=== PATIENT | female | born 1945 | race Caucasian/White ===

== ENCOUNTER → 2020-04-17 13:06 | Outpatient (BNVA) | payer MEDICARE, SELFPAY | PROVIDERS: PCP Physician Assistant; Visit Provider Urology | DX: R39.15 Urgency of urination (principal); N32.81 Overactive bladder | CPT/HCPCS: 51798; 99212 ==

== ENCOUNTER → 2020-05-30 15:02 | Outpatient (BNVA) | payer MEDICARE, SELFPAY | PROVIDERS: PCP Family Medicine; Visit Provider Urology | DX: N95.2 Postmenopausal atrophic vaginitis (principal); N30.20 Other chronic cystitis without hematuria; R39.15 Urgency of urination | CPT/HCPCS: 52000; 81002; 99212 ==

== ENCOUNTER 2020-10-09 09:48 | Outpatient (REF) | payer MEDICARE, SELFPAY | END 2020-10-09 09:49 | disposition home or self-care (01) | LOC: HO.LNP 09:48 | PROVIDERS: PCP Family Medicine | DX: N30.21 Other chronic cystitis with hematuria (principal); N32.81 Overactive bladder; Z79.899 Other long term (current) drug therapy; Z87.440 Personal history of urinary (tract) infections | CPT/HCPCS: 87086; 87088; 87186; 99212 ==

== ENCOUNTER 2020-10-29 14:36 | Outpatient (REF) | payer MEDICARE, SELFPAY ==
--- NOTE | ~2020-10-29 | US_ITS ---
EXAMINATION: US RETROPERITONEAL LIMITED (RENAL ONLY) CLINICAL INFORMATION: Hematuria, unspecified. COMPARISON: None TECHNIQUE: Real-time imaging of the kidneys. FINDINGS: RIGHT KIDNEY: 7.9 x 3.4 x 4.1 cm (SAG x AP x TRV). The kidney is small. The kidney is normal in contour, and echogenicity. Renal cortical thickness is normal. There are three echogenic densities with twinkle artifact suggestive of stones in the upper and midpole measuring 4 mm. No focal parenchymal lesions or hydronephrosis. LEFT KIDNEY: 8.5 x 4.0 x 3.3 cm (SAG x AP x TRV). The kidney is small. The kidney is normal in contour, and echogenicity. Renal cortical thickness is normal. No calculi or focal parenchymal lesions. No hydronephrosis. US/US renal BI IMPRESSION: Small kidneys. Small right renal stones.
== END 2020-10-29 14:37 | disposition home or self-care (01) ==
LOC: HO.US 14:36
PROVIDERS: PCP Family Medicine
DX: R31.9 Hematuria, unspecified (principal)
CPT/HCPCS: 76775

== ENCOUNTER → 2020-11-01 09:47 | Outpatient (BNVA) | payer MEDICARE, SELFPAY | PROVIDERS: PCP Family Medicine | DX: R39.15 Urgency of urination (principal) | CPT/HCPCS: 99212 ==

== ENCOUNTER → 2020-12-31 11:38 | Outpatient (BNVA) | payer MEDICARE, SELFPAY | PROVIDERS: PCP Family Medicine | DX: N30.20 Other chronic cystitis without hematuria (principal) | CPT/HCPCS: 99212 ==

== ENCOUNTER → 2021-04-03 13:48 | Outpatient (BNVA) | payer MEDICARE, SELFPAY | PROVIDERS: PCP Family Medicine | DX: N30.20 Other chronic cystitis without hematuria (principal); N32.81 Overactive bladder; R39.15 Urgency of urination | CPT/HCPCS: 99212 ==

== ENCOUNTER → 2021-06-03 14:09 | Outpatient (BNVA) | payer MEDICARE, SELFPAY | PROVIDERS: PCP Family Medicine | DX: N30.20 Other chronic cystitis without hematuria (principal); N32.81 Overactive bladder; Z79.899 Other long term (current) drug therapy | CPT/HCPCS: 51798; 99212 ==

== ENCOUNTER 2021-08-08 12:28 | Outpatient (REF) | payer MEDICARE, SELFPAY ==
[2021-08-08 13:17] LABS: Appearance Urine HAZY; Color Urine YELLOW; Glucose Urine UA 500 MG/DL (NEG); Leukocyte Esterase Urine 1+ (NEG); Nitrite Urine NEG (NEG); PH 6.5 (5.0-8.0); Urine Blood 1+ (NEG); Urine Ketones NEG (NEG); Urine Protein NEG (NEG-TRACE)
[2021-08-08 13:24] LABS: WBC Clumps Urine NOTED; WBC Urine 50-75 /HPF (0-4)
[2021-08-08 13:25] LABS: Bacteria Urine 1+ /LPF; RBC Urine 0-2 /HPF (0)
[2021-08-08 13:26] LABS: Renal Epithelial Cells Urine TRACE /LPF; Squamous Epithelial Cell Urine TRACE /LPF
== END 2021-08-08 12:29 | disposition home or self-care (01) ==
LOC: HO.LAB 12:28
PROVIDERS: PCP Family Medicine; Visit Provider Urology
DX: R39.15 Urgency of urination (principal)
CPT/HCPCS: 81001; 87086; 87088; 87186

== ENCOUNTER 2021-10-22 15:14 | Outpatient (REF) | payer MEDICARE, SELFPAY ==
--- NOTE | ~2021-10-22 | US_ITS ---
EXAMINATION: US RETROPERITONEAL LIMITED (RENAL ONLY) CLINICAL INFORMATION: Calculus of kidney. COMPARISON: US retroperitoneal limited (renal only) 10/29/2020. TECHNIQUE: Real-time imaging of the kidneys. FINDINGS: RIGHT KIDNEY: 7.8 x 3.4 x 3.7 cm (SAG x AP x TRV). The kidney is normal in size, contour, and echogenicity. Renal cortical thickness is normal. No focal parenchymal lesions or hydronephrosis. There is a midpole twinkle shadow suggestive of calcification or tiny calculi. No caliectasis seen. LEFT KIDNEY: 8.2 x 3.9 x 5.0 cm (SAG x AP x TRV). The kidney is normal in size, contour, and echogenicity. Renal cortical thickness is normal. No calculi or focal parenchymal lesions. No hydronephrosis. There are linear echogenic foci, question vascular calcifications. US/US renal BI IMPRESSION: Midpole twinkle echo right kidney likely small calcification or tiny stone.
== END 2021-10-22 15:15 | disposition home or self-care (01) ==
LOC: HO.US 15:14
DX: N20.0 Calculus of kidney (principal)
CPT/HCPCS: 76775

== ENCOUNTER → 2021-12-10 10:09 | Outpatient (BNVA) | payer MEDICARE, SELFPAY | PROVIDERS: PCP Family Medicine; Visit Provider Urology | DX: N30.20 Other chronic cystitis without hematuria (principal); N32.81 Overactive bladder; R39.15 Urgency of urination | CPT/HCPCS: 51798; 99212 ==

== ENCOUNTER 2022-04-23 13:11 | Inpatient (IN) | payer MEDICARE, SELFPAY ==
--- NOTE | ~2022-04-23 | CT_ITS ---
EXAMINATION: CT ABDOMEN AND PELVIS WITHOUT CONTRAST CLINICAL INFORMATION: Right flank pain. Rule out stone or pyelonephritis. COMPARISON: None TECHNIQUE: Multidetector volumetric imaging was performed from the superior aspect of the liver through the pubic symphysis. Sagittal and coronal reformatted images were obtained on the technologist's workstation. This CT examination was performed using dose optimization techniques as appropriate, variously including the following: *Automated exposure control *Adjustment of mA and/or kV according to patient size (this includes techniques or standardized protocols for targeted exams where dose is matched to indication/reason for exam; i.e. extremities or head) *Use of iterative reconstruction technique DLP: 519 mGy-cm FINDINGS: LUNG BASES: Mild subpleural reticulation the lung bases consistent with some combination of mild interstitial fibrosis and/or atelectasis. Sub-4 mm left basilar calcified granuloma noted. LIVER, GALLBLADDER, AND BILIARY TREE: Normal hepatic attenuation in size. No liver lesion. Status post cholecystectomy. Common hepatic duct measures up to 1 cm in diameter, at the upper limits of normal in size. Slight prominence of central intrahepatic bile ducts. Findings are likely normal for this patient. Correlate with LFTs for clinical significance. PANCREAS: Unremarkable. SPLEEN: Unremarkable. ADRENAL GLANDS: Unremarkable. KIDNEYS AND URETERS: The kidneys are normal in size, shape, and attenuation. No hydronephrosis, hydroureter, or calculi seen. No perinephric stranding. BLADDER: Unremarkable. GASTROINTESTINAL TRACT: Probable small hiatal hernia. No dilated bowel loops. No bowel wall thickening. Moderate volume formed stool within the colon. Appendix is not visualized. No inflammatory change the base of the cecum. No free air or ascites. ABDOMINAL WALL: Surgical closure clips in the ventral abdominal wall. No significant hernia. LYMPH NODES: No lymphadenopathy. VASCULAR: Mildly tortuous normal caliber abdominal aorta. Moderate vascular calcifications. PELVIC VISCERA: Status post hysterectomy. OSSEOUS STRUCTURES: Generalized osteopenia. No acute fracture or suspicious osseous lesion. Status post L3-S1 posterior spinal fusion with intact posterior mohan and pedicle screws at L3-L5 and intervertebral spacers in place at L2-L3 and L4-L5. Spinal stimulator ascends into the spinal canal of the visualized thoracic spine. Retrolisthesis at L2-L3. Multilevel degenerative disc disease most advanced at L2-L3. Bilateral hip joint osteoarthritis. CT/CT abdomen pelvis wo IV con IMPRESSION: 1. No renal calculi or hydronephrosis. 2. No perinephric inflammatory stranding. Cannot exclude the possibility of pyelonephritis on CT without intravenous contrast. Correlate with urinalysis. 3. Status post cholecystectomy. Mild prominence of the common hepatic duct and central intrahepatic bile ducts, likely normal for this patient. Correlate with LFTs for clinical significance. 4. Additional chronic findings, as described.
[2022-04-23 13:38] VITALS: BP 133/74; PULSE 72; RESP 18; TEMP 36.8; O2SAT 98; BMI 26.6
--- NOTE | 2022-04-23 13:38 | ED_ITS ---
HPI - Female Genitourinary General Chief complaint: Urogenital-Female <Carolina Mesa CNP - Last Filed: 04/23/22 20:47> Stated complaint: quest uti <Carolina Mesa CNP - Last Filed: 04/23/22 20:47> Time Seen by Provider: 04/23/22 22:46 <Carolina Mesa CNP - Last Filed: 04/23/22 20:47> Source: patient <Peter Grijalva MD - Last Filed: 04/24/22 00:50> Mode of arrival: ambulatory <Peter Grijalva MD - Last Filed: 04/24/22 00:50> Limitations: no limitations <Peter Grijalva MD - Last Filed: 04/24/22 00:50> History of Present Illness HPI Narrative: 76-year-old female who presents emergency department for evaluation of possible urinary tract infection. The patient states that at 1 week prior she had symptoms of urinary tract infection which included frequency, urgency, dysuria and cramping in her lower abdomen. She states that her urologist prescribed Macrobid and she took this for 1 week. She states she finished this dose on Wednesday ( 4 days prior to evaluation). She states that over the past 2-3 days however her symptoms have gotten worse. She continues to have dysuria and frequency. She states she also developed shaking chills today. She had nausea with no vomiting. She states she has also had loose stools over the last 3 days. Patient states that while she was waiting here in the emergency departm ent she developed pain in her right lower quadrant that radiates to her right flank. She states this pain is a constant, sharp pain which is greater than 10/10. <Peter Grijalva MD - Last Filed: 04/24/22 00:50> Related Data Home medications: Home Medications Medication Instructions Recorded Confirmed atorvastatin 80 mg tablet 80 mg PO DAILY 04/17/20 12/10/21 dicyclomine 10 mg capsule 10 mg PO TID 04/17/20 12/10/21 fluoxetine 40 mg capsule 40 mg PO DAILY 04/17/20 12/10/21 insulin glargine 100 unit/mL (3 unit subcut 04/17/20 12/10/21 mL) subcutaneous pen levothyroxine 100 mcg tablet 0 mcg PO 04/17/20 12/10/21 lisinopril 2.5 mg tablet 2.5 mg PO DAILY 04/17/20 12/10/21 metoprolol succinate 25 mg 25 mg PO DAILY 04/17/20 12/10/21 tablet,extended release 24 hr pantoprazole 40 mg tablet,delayed 40 mg PO DAILY 05/30/20 12/10/21 release pen needle, diabetic 31 gauge x #1,200 ea 04/03/21 12/10/21 5/16 (BD Ultra-Fine Short Pen Needle) Previous Rx's Medication Instructions Recorded estradiol 0.01% (0.1 mg/gram) See Rx Instructions .Route 3XW 30 05/30/20 vaginal cream days #42.5 grams ascorbic acid (vitamin C) 1,000 mg 1 g PO DAILY 90 days #90 tabs 04/03/21 tablet mirabegron 25 mg tablet,extended 50 mg PO DAILY 90 days #180 tabs 12/10/21 release 24 hr (Myrbetriq) nitrofurantoin 100 mg PO BID UTI 7 days #14 caps 04/13/22 monohydrate/macrocrystals 100 mg capsule (Macrobid) <Carolina Mesa, [employer] - Last Filed: 04/23/22 20:47> Allergies/Adverse reactions: Allergies Allergy/AdvReac Type Severity Reaction Status Date / Time droperidol [From INAPSINE] Allergy Severe HYPERACTIVE Verified 12/10/21 08:49 Cephalosporins Allergy Intermediate RASH,GI Verified 12/10/21 08:49 [CEPHALOSPORINS] UPSET doxycycline [DOXYCYCLINE] Allergy Intermediate N/V/DIARRHE Verified 12/10/21 08:49 A latex [LATEX] Allergy Intermediate RASH Verified 12/10/21 08:49 amlodipine Allergy Unknown Unknown Verified 12/10/21 08:49 cephalexin [Keflex] Allergy Unknown Unknown Verified 12/10/21 08:49 ciprofloxacin [Cipro] Allergy Unknown Unknown Verified 12/10/21 08:49 levofloxacin [Levaquin] Allergy Unknown Unknown Verified 12/10/21 08:49 Sulfa (Sulfonamide Allergy Unknown Unknown Verified 12/10/21 08:49 Antibiotics) sulfamethoxazole AdvReac Mild GI UPSET Verified 12/10/21 08:49 [From BACTRIM] trimethoprim [From BACTRIM] AdvReac Mild GI UPSET Verified 12/10/21 08:49 From KEFLEX Allergy Intermediate LEG RASH Uncoded 06/03/21 14:19 hipacleanse Allergy Unknown Unknown Uncoded 06/03/21 14:19 Latex Exam Gloves Allergy Unknown Unknown Uncoded 06/03/21 14:19 <Carolina Mesa CNP - Last Filed: 04/23/22 20:47> Review of Systems Review of Systems: Yes all other systems are reviewed and are negative <Peter Grijalva MD - Last Filed: 04/24/22 00:50> FORMERLY [facility], [facility] Past Medical History FOR[facility]LY [facility], [facility] Narrative: Past medical history: Reviewed below. Diabetes mellitus, hypertension, hyperlipidemia, frequent urinary tract infections, C diff, COVID-16 February 2022. Past surgical history: Hysterectomy with oophorectomy, appendectomy, cholecystectomy, ERCP for retained biliary stone. Social history: She denies tobacco use. She occasionally drinks alcohol. She denies drug <Peter Grijalva MD - Last Filed: 04/24/22 00:50> Medical History: Medical History Chronic kidney disease Hematuria Hx: UTI (urinary tract infection) Incomplete emptying of bladder Pyuria Urethral caruncle <Carolina Mesa CNP - Last Filed: 04/23/22 20:47> Surgical History: Surgical History History of total hysterectomy <Carolina Mesa CNP - Last Filed: 04/23/22 20:47> Social History Social History: Social History Advance Directives: No Advance Directives Information Provided: Yes Current occupational status: disabled <Carolina Mesa CNP - Last Filed: 04/23/22 20:47> Physical Exam Vital Signs: Vital Signs: Last Vital Signs Temp 98.1 F 04/23/22 23:51 Pulse 59 04/23/22 23:51 Resp 16 04/23/22 23:51 BP 147/75 H 04/23/22 23:51 Pulse Ox 98 04/23/22 23:51 O2 Del Method 04/23/22 23:51 BMI result Body Mass Index 26.6 <Carolina Mesa CNP - Last Filed: 04/23/22 20:47> Vital Signs: Last Vital Signs Temp 98.1 F 04/23/22 23:51 Pulse 59 04/23/22 23:51 Resp 16 04/23/22 23:51 BP 147/75 H 04/23/22 23:51 Pulse Ox 98 04/23/22 23:51 O2 Del Method 04/23/22 23:51 BMI result Body Mass Index 26.6 <Peter Grijalva MD - Last Filed: 04/24/22 00:50> Const: General: cooperative and no acute distress <Peter Grijalva MD - Last Filed: 04/24/22 00:50> Orientation/consciousness: oriented to person and oriented to place <Peter Grijalva MD - Last Filed: 04/24/22 00:50> Limitations: no limitations <Peter Grijalva MD - Last Filed: 04/24/22 00:50> HEENT: Head: Yes normal to inspection, Yes normocephalic and Yes atraumatic <Peter Grijalva MD - Last Filed: 04/24/22 00:50> Ears: external ears normal <Peter Grijalva MD - Last Filed: 04/24/22 00:50> General nose exam: Normal external nose present <Peter Grijalva MD - Last Filed: 04/24/22 00:50> Face and sinus: Yes normal facial exam <Peter Grijalva MD - Last Filed: 04/24/22 00:50> Mouth: Normal oral and palatal mucosa present <Peter Grijalva MD - Last Filed: 04/24/22 00:50> Throat: Yes posterior oropharynx normal <Peter Grijalva MD - Last Filed: 04/24/22 00:50> Eyes: General: appearance normal, both eyes and all related structures <Peter Grijalva MD - Last Filed: 04/24/22 00:50> Pupils: Equal, round and reactive pupils present <MD Merlyn Davalos Last Filed: 04/24/22 00:50> Neck: Neck: Yes normal visual inspection, Yes no lymphadenopathy, Yes trachea midline and Yes supple <MD Merlyn Davalos Last Filed: 04/24/22 00:50> Chest: Chest palpation & inspection: normal inspection of the chest and normal palpation of entire chest wall <MD Merlyn Davalos Last Filed: 04/24/22 00:50> Resp: Effort & Inspection: normal respiratory effort and able to speak in complete sentences <MD Merlyn Davalos Last Filed: 04/24/22 00:50> Auscultation: clear to auscultation bilaterally <MD Merlyn Davalos Last Filed: 04/24/22 00:50> Cardio: Rate: regular rate <MD Merlyn Davalos Last Filed: 04/24/22 00:50> Rhythm: regular rhythm <MD Merlyn Davalos Last Filed: 04/24/22 00:50> Heart sounds: S1 normal heart sound present, S2 normal heart sound present and no murmurs <MD Merlyn Davalos Last Filed: 04/24/22 00:50> GI: Inspection: Yes normal to inspection <MD Merlyn Davalos Last Filed: 04/24/22 00:50> Palpation (GI): Soft to palpation, Tenderness to palpation present (GI) in the RLQ ( Moderate) and suprapubicly ( moderate) and no guarding <Peter boone MD - Last Filed: 04/24/22 00:50> Auscultation: normal bowel sounds <MD Merlyn Davalos Last Filed: 04/24/22 00:50> : General: Yes CVA tenderness on the right <MD Merlyn Davalos Last Filed: 04/24/22 00:50> Back/Spine/Pelvis: Back: CVA tenderness <MD Merlyn Davalos Last Filed: 04/24/22 00:50> Skin: General skin exam: no rashes or lesions noted <Peter Grijalva MD - Last Filed: 04/24/22 00:50> Neuro: General: oriented to person and oriented to place <Peter Grijalva MD - Last Filed: 04/24/22 00:50> Cranial nerves: Yes CN's II-XII intact bilaterally and Yes Equal, round and reactive pupils present <Peter Grijalva MD - Last Filed: 04/24/22 00:50> Cognition (Neuro): normal cognition <Peter Grijalva MD - Last Filed: 04/24/22 00:50> Motor exam (neuro): 5/5 motor strength present throughout <Peter Grijalva MD - Last Filed: 04/24/22 00:50> Extrem: General: Yes normal to inspection <Peter Grijalva MD - Last Filed: 04/24/22 00:50> Psych: Appearance: grossly normal <Peter Grijalva MD - Last Filed: 04/24/22 00:50> Speech and movement: Normal speech and movement present <Peter Grijalva MD - Last Filed: 04/24/22 00:50> Affect: normal affect <Peter Grijalva MD - Last Filed: 04/24/22 00:50> Attitude: cooperative <Peter Grijalva MD - Last Filed: 04/24/22 00:50> Thought process: Normal thought process present <Peter Grijalva MD - Last Filed: 04/24/22 00:50> Thought content: Normal thought content present <Peter Grijalva MD - Last Filed: 04/24/22 00:50> Course Course Course Narrative: This is an RME: Additional HPI, ROS, PE not included below will be deferred to primary provider. Patient is a 76-year-old female with chronic cystitis who presents to emergency department complaining of dysuria, urinary frequency, suprapubic cramping. Onset of symptoms was a few days ago. Today symptoms were worsening. She contacted her urologist, while in the waiting room she received an appointment to be evaluated tomorrow. Reports over weekend she completed a 1 week regimen of Macrobid. Prior urine cultures have grown E coli, and most recently July 2021 Citrobacter freundii Plan: labs, urinalysis 18:40 - Patient remains in [facility], Urinalysis consistent with urinary tract infection, no leukocytosis. I have reached out to Urology on-call, Dr. Thad Blevins, who is patient's urologist to establish plan of care for treatment. Awaiting response at this time 20:45 - Received call back from Dr. Kathleen, patient has an outpatient appointment scheduled for tomorrow morning. She recommended that patient can receive treatment with IV antibiotic while in the emergency department, and suggested either renal ultrasound or CT of the abdomen and pelvis for further evaluation. <Carolina Mesa, BENOIT - Last Filed: 04/23/22 20:47> Medications Administered Generic Name Dose Route Start Last Admin Trade Name Freq PRN Reason Stop Dose Admin Lactated Ringer's 1,000 mls @ 150 mls/hr 04/23/22 23:15 04/24/22 00:29 Lr IVCONT 150 mls/hr .Q6H40M ZARA Administration Discontinued Medications Generic Name Dose Route Start Last Admin Trade Name Freq PRN Reason Stop Dose Admin Hydromorphone HCl 1 mg 04/23/22 23:12 04/24/22 00:29 Hydromorphone Hcl 1 Mg/Ml Syringe IVPUSH 04/23/22 23:13 1 mg ONCE STA Administration Protocol Ceftriaxone Sodium 1 gm/ 50 mls @ 100 mls/hr 04/23/22 23:12 04/24/22 00:26 Sodium Chloride IV 04/23/22 23:41 100 mls/hr ONCE ONE Administration Ketorolac Tromethamine 30 mg 04/23/22 21:49 04/23/22 21:54 Ketorolac Tromethamine 30 Mg/Ml Vial IVPUSH 04/23/22 21:50 30 mg ONCE ONE Administration Morphine Sulfate 4 mg 04/23/22 20:25 04/23/22 21:08 Morphine Sulfate 4 Mg/Ml Cartridge IVPUSH 04/23/22 20:26 4 mg ONCE ONE Administration Protocol Ondansetron HCl 4 mg 04/23/22 21:10 04/23/22 21:13 Ondansetron Odt 4 Mg Tab.Rapdis TRANSLINGU 04/23/22 21:11 4 mg ONCE ONE Administration <Carolina Mesa CNP - Last Filed: 04/23/22 20:47> Medications Administered Generic Name Dose Route Start Last Admin Trade Name August PRN Reason Stop Dose Admin Lactated Ringer's 1,000 mls @ 150 mls/hr 04/23/22 23:15 04/24/22 00:29 Lr IVCONT 150 mls/hr .Q6H40M ZARA Administration Discontinued Medications Generic Name Dose Route Start Last Admin Trade Name Frejohnny PRN Reason Stop Dose Admin Hydromorphone HCl 1 mg 04/23/22 23:12 04/24/22 00:29 Hydromorphone Hcl 1 Mg/Ml Syringe IVPUSH 04/23/22 23:13 1 mg ONCE STA Administration Protocol Ceftriaxone Sodium 1 gm/ 50 mls @ 100 mls/hr 04/23/22 23:12 04/24/22 00:26 Sodium Chloride IV 04/23/22 23:41 100 mls/hr ONCE ONE Administration Ketorolac Tromethamine 30 mg 04/23/22 21:49 04/23/22 21:54 Ketorolac Tromethamine 30 Mg/Ml Vial IVPUSH 04/23/22 21:50 30 mg ONCE ONE Administration Morphine Sulfate 4 mg 04/23/22 20:25 04/23/22 21:08 Morphine Sulfate 4 Mg/Ml Cartridge IVPUSH 04/23/22 20:26 4 mg ONCE ONE Administration Protocol Ondansetron HCl 4 mg 04/23/22 21:10 04/23/22 21:13 Ondansetron Odt 4 Mg Tab.Rapdis TRANSLINGU 04/23/22 21:11 4 mg ONCE ONE Administration <Peter Grijalva MD - Last Filed: 04/24/22 00:50> Medical Decision Making Medical Decision Making MDM Narrative: 76-year-old female with a history of frequent urinary tract infections who was treated approximately 1 week prior pre urine tract infection with Macrobid, she finished her course 3 days prior and now had recurrence of her symptoms which include chills, dysuria, frequency, urgency, right lower quadrant pain and right flank pain. Patient is still examination did reveal right lower quadrant tenderness as well suprapubic tenderness. The patient also has right CVA tenderness. Patient had a laboratory evaluation that included CBC, CMP, urinalysis, lactic acid lactic acid. CT scan of the abdomen pelvis without IV contrast was also ordered to evaluate the patient for possible right-sided kid jignesh stones versus pyelonephritis. 2323 : My independent interpretation patient's laboratory evaluation as follows: CBC was normal. bicarb low 20. BUN and creatinine normal 190.9. Alk-phos elevated 119. urinalysis revealed positive protein, positive glucose, 2+ blood, positive nitrates, moderate leukocyte esterase. Urinalysis revealed greater than 20 RBCs, greater than 50 WBCs, 0-2 squamous cells and 4+ bacteria. The patient's laboratory evaluation is consistent with a urinary tract infection, given her suprapubic tenderness, right lower quadrant tenderness and flank tenderness and concerned that she may have pyelonephritis. CT scan of the abdomen pelvis with IV contrast is pending. Patient has multiple drug allergies, she states that she cannot take cephalexin however she has tolerated the 3rd generation cefpodoxime therefore I did order ceftriaxone 1 g IV. patient did receive Toradol and morphine with no relief for pain therefore she was given Dilaudid 1 mg IV. 0047: CT scan of the abdomen pelvis without IV contrast did not reveal kidney stones or any significant acute findings. At this time, I suspect the patient has acute pyelonephritis and has failed outpatient therapy. I did discuss admission with the covering hospitalist, Dr. Lopez and patient will be admitted for further management. <Peter Grijalva MD - Last Filed: 04/24/22 00:50> Differential Diagnosis Differential diagnosis includes but is not limited to pyelonephritis, cystitis, kidney stones <Peter Grijalva MD - Last Filed: 04/24/22 00:50> Consult Healthcare Provider Management of the patient was discussed with: Hospitalist (Dr. Lopez) <Pteer Grijalva MD - Last Filed: 04/24/22 00:50> Lab Data [facility] Lab Attestation statement: I reviewed the patient's lab results. <Peter Grijalva MD - Last Filed: 04/24/22 00:50> please see [facility] for my discussion of the labs <Peter Grijalva MD - Last Filed: 04/24/22 00:50> Result Diagrams: 04/23/22 14:15 02/23/23 14:15 <Carolina Mesa, [employer] - Last Filed: 04/23/22 20:47> Labs: Lab Results 04/23/22 04/23/22 04/23/22 Range/Units 14:00 14:15 14:15 WBC 10.7 (4.8-10.8) X10*3/uL RBC 4.80 (4.20-5.50) X10*6/uL Hgb 12.1 (12.0-16.0) g/dl Hct 37.7 (37.0-47.0) % MCV 78.5 L (80.0-98.0) fL MCH 25.2 L (27.0-33.0) pg MCHC 32.1 (31.0-35.0) g/dl RDW 16.9 H (11.0-16.0) % Plt Count 228 (160-400) X10*3/uL MPV 9.3 L (9.4-12.3) fL Immature Gran % (Auto) 0.4 (0.0-0.4) % Neut % (Auto) 67.4 (45-73) % Lymph % (Auto) 25.5 (20-40) % [place] % (Auto) 4.6 (2-11) % Eos % (Auto) 1.4 (0-4) % Baso % (Auto) 0.7 (0-2) % Lymph # (Auto) 2.7 (1.2-4.9) X10*3/uL [place] # (Auto) 0.5 (0.1-1.2) X10*3/uL Eos # (Auto) 0.2 (0.0-0.4) X10*3/uL Baso # (Auto) 0.1 (0.0-0.2) X10*3/uL Abs Immat Gran (auto) 0.04 H (0.00-0.03) X10*3/uL Absolute Neuts (auto) 7.2 (2.0-8.3) x10*3/uL Absolute Nucleated RBC 0.000 (0.0-0.012) X10*3/uL Nucleated RBC % (auto) 0.0 (0.0-0.2) /100WBC Sodium 139 (135-145) mmol/L Potassium 4.9 (3.3-5.1) mmol/L Chloride 110 H (96-108) mmol/L Carbon Dioxide 20 L (22-29) mmol/L Anion Gap 14 (12-20) BUN 19 H (9-16) mg/dL Creatinine 0.96 (0.5-1.4) mg/dL Estim Creat Clear Calc 50.5 Estimated GFR 57 Random Glucose 77 (60-115) mg/dL Calcium 8.2 L (8.4-10.2) mg/dL Total Bilirubin 0.2 (0.0-1.0) mg/dL AST 23 (5-31) U/L ALT 10 (0-31) U/L Alkaline Phosphatase 119 H (39-117) U/L Total Protein 6.6 (6.5-8.0) g/dL Albumin 3.8 (3.5-5.0) g/dL Urine Color Yellow Urine Appearance Turbid Urine pH 5.5 (5.0-9.0) Ur Specific [place] >= 1.030 H (1.005-1.025) Urine Protein 100 (2+) H (Neg-Trace) mg/dL Urine Glucose (UA) 500 H (Negative) mg/dL Urine Ketones Trace (Negative) mg/dL Urine Blood Moderate (2+) H (Negative) Urine Nitrite Positive H (Negative) Ur Leukocyte Esterase Moderate (2+) H (Negative) Urine RBC >20 H (0-2) /HPF Urine WBC >50 H (0-5) /HPF Ur Squamous Epith Cells 0-2 (0-2) /HPF Urine Bacteria 4+ (None Seen) Hyaline Casts 0-2 (0-2) /LPF <Carolina Mesa, [employer] - Last Filed: 04/23/22 20:47> Lab Results 04/23/22 04/23/22 04/23/22 Range/Units 14:00 14:15 14:15 WBC 10.7 (4.8-10.8) X10*3/uL RBC 4.80 (4.20-5.50) X10*6/uL Hgb 12.1 (12.0-16.0) g/dl Hct 37.7 (37.0-47.0) % MCV 78.5 L (80.0-98.0) fL MCH 25.2 L (27.0-33.0) pg MCHC 32.1 (31.0-35.0) g/dl RDW 16.9 H (11.0-16.0) % Plt Count 228 (160-400) X10*3/uL MPV 9.3 L (9.4-12.3) fL Immature Gran % (Auto) 0.4 (0.0-0.4) % Neut % (Auto) 67.4 (45-73) % Lymph % (Auto) 25.5 (20-40) % [place] % (Auto) 4.6 (2-11) % Eos % (Auto) 1.4 (0-4) % Baso % (Auto) 0.7 (0-2) % Lymph # (Auto) 2.7 (1.2-4.9) X10*3/uL [place] # (Auto) 0.5 (0.1-1.2) X10*3/uL Eos # (Auto) 0.2 (0.0-0.4) X10*3/uL Baso # (Auto) 0.1 (0.0-0.2) X10*3/uL Abs Immat Gran (auto) 0.04 H (0.00-0.03) X10*3/uL Absolute Neuts (auto) 7.2 (2.0-8.3) x10*3/uL Absolute Nucleated RBC 0.000 (0.0-0.012) X10*3/uL Nucleated RBC % (auto) 0.0 (0.0-0.2) /100WBC Sodium 139 (135-145) mmol/L Potassium 4.9 (3.3-5.1) mmol/L Chloride 110 H (96-108) mmol/L Carbon Dioxide 20 L (22-29) mmol/L Anion Gap 14 (12-20) BUN 19 H (9-16) mg/dL Creatinine 0.96 (0.5-1.4) mg/dL Estim Creat Clear Calc 50.5 Estimated GFR 57 Random Glucose 77 (60-115) mg/dL Calcium 8.2 L (8.4-10.2) mg/dL Total Bilirubin 0.2 (0.0-1.0) mg/dL AST 23 (5-31) U/L ALT 10 (0-31) U/L Alkaline Phosphatase 119 H (39-117) U/L Total Protein 6.6 (6.5-8.0) g/dL Albumin 3.8 (3.5-5.0) g/dL Urine Color Yellow Urine Appearance Turbid Urine pH 5.5 (5.0-9.0) Ur Specific [place] >= 1.030 H (1.005-1.025) Urine Protein 100 (2+) H (Neg-Trace) mg/dL Urine Glucose (UA) 500 H (Negative) mg/dL Urine Ketones Trace (Negative) mg/dL Urine Blood Moderate (2+) H (Negative) Urine Nitrite Positive H (Negative) Ur Leukocyte Esterase Moderate (2+) H (Negative) Urine RBC >20 H (0-2) /HPF Urine WBC >50 H (0-5) /HPF Ur Squamous Epith Cells 0-2 (0-2) /HPF Urine Bacteria 4+ (None Seen) Hyaline Casts 0-2 (0-2) /LPF <Peter Grijalva MD - Last Filed: 04/24/22 00:50> Discharge Plan Discharge Prescriptions: No Action nitrofurantoin monohyd/m-cryst [Macrobid] 100 mg capsule 100 mg PO BID 7 Days Qty: 14 0RF Rx Instructions: must administer with a meal/food metoprolol succinate 25 mg tablet extended release 24 hr 25 mg PO DAILY levothyroxine 100 mcg tablet 0 mcg PO dicyclomine 10 mg capsule 10 mg PO TID fluoxetine 40 mg capsule 40 mg PO DAILY Lantus Solostar U-100 Insulin 100 unit/mL (3 mL) insulin pen subcut lisinopril 2.5 mg tablet 2.5 mg PO DAILY atorvastatin 80 mg tablet 80 mg PO DAILY pantoprazole 40 mg tablet,delayed release (DR/EC) 40 mg PO DAILY estradiol 0.01 % (0.1 mg/gram) cream See Rx Instructions .Route 3XW 30 Days Qty: 42.5 2RF Rx Instructions: pea-sized to urethra 3 times a week; (DME) pen needle, diabetic [BD Ultra-Fine Short Pen Needle] 31 gauge x 5/16 needle See Rx Instructions subcut DAILY Qty: 1200 Rx Instructions: As directed ascorbic acid (vitamin C) 1,000 mg tablet 1 g PO DAILY 90 Days Qty: 90 1RF Myrbetriq 25 mg tablet extended release 24 hr 50 mg PO DAILY 90 Days Qty: 180 2RF <Carolina Mesa, BENOIT - Last Filed: 04/23/22 20:47>
[2022-04-23 14:19] LABS: MANUAL DIFF FLAG NO
[2022-04-23 14:22] LABS: Basophils Absolute Auto 0.1 X10*3/uL (0.0-0.2); Basophils Percent Auto 0.7 % (0-2); Eosinophils Absolute Auto 0.2 X10*3/uL (0.0-0.4); Eosinophils Percent Auto 1.4 % (0-4); Hematocrit 37.7 % (37.0-47.0); Hemoglobin 12.1 g/dl (12.0-16.0); Imm Gran Abs Auto 0.04 X10*3/uL (0.00-0.03); Imm Gran Pct Auto 0.4 % (0.0-0.4); Lymphocytes Absolute Auto 2.7 X10*3/uL (1.2-4.9); Lymphocytes Percent Auto 25.5 % (20-40); Mean Corpuscular HGB Conc 32.1 g/dl (31.0-35.0); Mean Corpuscular Hemoglobin 25.2 pg (27.0-33.0); Mean Corpuscular Volume 78.5 fL (80.0-98.0); Mean Platelet Volume 9.3 fL (9.4-12.3); Monocytes Absolute Auto 0.5 X10*3/uL (0.1-1.2); Monocytes Percent Auto 4.6 % (2-11); Neutrophils Absolute Auto 7.2 x10*3/uL (2.0-8.3); Neutrophils Percent Auto 67.4 % (45-73); Platelet Count 228 X10*3/uL (160-400); Red Cell Distribution Width 16.9 % (11.0-16.0); White Blood Count 10.7 X10*3/uL (4.8-10.8)
[2022-04-23 14:25] LABS: Appearance Urine Turbid; Color Urine Yellow; Glucose Urine UA 500 mg/dL (Negative); Leukocyte Esterase Urine Moderate (2+) (Negative); Nitrite Urine Positive (Negative); PH 5.5 (5.0-9.0); Specific Gravity - Urine >= 1.030 (1.005-1.025); UMIC TRIGGER UACC YES; Urine Blood Moderate (2+) (Negative); Urine Ketones Trace mg/dL (Negative); Urine Protein 100 (2+) mg/dL (Neg-Trace)
[2022-04-23 14:30] LABS: Bacteria Urine 4+ (None Seen); Hyaline Casts Urine 0-2 /LPF (0-2); RBC Urine >20 /HPF (0-2); Squamous Epithelial Cell Urine 0-2 /HPF (0-2); UACC Culture Trigger YES; WBC Urine >50 /HPF (0-5)
[2022-04-23 14:56] LABS: Alanine Aminotransferase 10 U/L (0-31); Albumin Level 3.8 g/dL (3.5-5.0); Alkaline Phosphatase 119 U/L (39-117); Anion Gap 14 (12-20); Aspartate Amino Transferase 23 U/L (5-31); Bilirubin Total 0.2 mg/dL (0.0-1.0); Blood Urea Nitrogen 19 mg/dL (9-16); Calcium 8.2 mg/dL (8.4-10.2); Carbon Dioxide 20 mmol/L (22-29); Chloride 110 mmol/L (96-108); Creatinine Clr Calc Pharmacy 50.5; Estimated Glomerular Filt Rate 57; Glucose Random 77 mg/dL (60-115); Potassium 4.9 mmol/L (3.3-5.1); Sodium 139 mmol/L (135-145); Total Protein 6.6 g/dL (6.5-8.0)
[2022-04-23 20:16] VITALS: BP 206/75; PULSE 66; TEMP 36.4; O2SAT 99
[2022-04-23] MEDS: Morphine Sulfate 4 MG/ML CARTRIDGE IVPUSH (21:08)
[2022-04-23] MEDS: Ondansetron ODT 4 MG TAB.RAPDIS TRANSLINGU (21:13)
[2022-04-23] MEDS: Ketorolac Tromethamine 30 MG/ML VIAL IVPUSH (21:54)
[2022-04-23 23:51] VITALS: BP 147/75; PULSE 59; RESP 16; TEMP 36.7; O2SAT 98
--- NOTE | 2022-04-23 23:52 | MHC.EDTECH ---
0000 rounding done ,vitals sign taken .
[2022-04-24] MEDS: cefTRIAXone sodium 1 GM in 0.9 % Sodium Chloride 50 ML IV (00:26)
[2022-04-24] MEDS: HYDROmorphone HCl 1 MG/ML SYRINGE IVPUSH (00:29)
[2022-04-24] MEDS: Lactated Ringers 1,000 ML 150 ML IVCONT ×4 (00:29→19:10)
[2022-04-24 00:54] LABS: Lactic Acid 1.2 mmol/L (0.5-2.0)
--- NOTE | 2022-04-24 01:21 | MHC.EDTECH ---
LO RUSSO IS AWARE THAT PATIENT IS A DIFFICULT DRAW ,PHLEBOTOMY CAME UP AND DRAW PATIENT ,WAS ONLY ABLE TO DRAW FIRST SETS OF CULTURE AND LACTIC ACID ,WAS NOT ABLE TO DRAW 2 ND SET .
[2022-04-24 02:04] LABS: COVID-19 Test Negative (Negative); IDNOW Serial# BCCEAD1C
[2022-04-24 02:08] VITALS: BP 126/51; PULSE 78; RESP 16; TEMP 36.2; O2SAT 98
[2022-04-24] MEDS: oxyCODONE HCl Immed Release 5 MG TABLET PO (02:33)
[2022-04-24] MEDS: Enoxaparin Sodium 40 MG/0.4 ML SYRINGE SUBCUT ×2 (02:34→14:51)
--- NOTE | 2022-04-24 02:47 | PC.NURSE ---
pt medicated per apr. orange juice given
[2022-04-24 03:55] VITALS: BP 137/54; PULSE 60; RESP 16; TEMP 36.1; O2SAT 96
--- NOTE | 2022-04-24 04:31 | PC.NURSE ---
Called dr Lopez regarding increase
[2022-04-24] MEDS: HYDROmorphone HCl 0.5 MG/0.5 ML SYRINGE IM (05:34)
--- NOTE | 2022-04-24 06:52 | P.HPHOSP_ITS ---
History of Present Illness Date of Service: 04/24/22 Chief Complaint: flank pain, urinary symptoms 76-year-old female with recurrent UTI, presents the hospital with complaints of urinary symptoms. Patient reports that her symptoms including dysuria, urgency, frequency started about a week ago, she was started on Bactrim outpatient, with slight improvement in her symptoms, but once she completed antibiotics her symptoms returned. She is also complaining of right flank pain radiating to the groin. She denies any fever, no chills, no chest pain shortness of breath, no abdominal pain nausea or vomiting, no diarrhea constipation, no urinary symptoms and no lower extremity edema. She describes the flank pain is 10/10, constant, nonradiating there is positive for nitrites, WBC, leukocyte Estrace as well as bacteria Abdominal pelvic CT shows no renal calculi or hydronephrosis, no perinephric inflammatory stranding although CT is noncontrast. On arrival to the ED patient hemodynamically stable with no significant abnormal vitals Labs are significant for WBC count 10.7, labs otherwise unremarkable, UA positive as mentioned Review of Systems Review of Systems: Yes all other systems are reviewed and are negative [facility] Medical History (Updated 04/24/22 @ 07:01 by Jordyn Lopez MD) Chronic kidney disease Hematuria Hx: UTI (urinary tract infection) Incomplete emptying of bladder Pyuria Urethral caruncle Surgical History History of total hysterectomy Social History (Updated 04/24/22 @ 07:00 by Jordyn Lopez MD) Alcohol intake: never Patient Tobacco Use Status: Never used Tobacco Use of substances other than those prescribed or required for medical reasons: No Advance Directives: No Advance Directives Information Provided: Yes Current occupational status: disabled Meds Allergies Allergy/AdvReac Type Severity Reaction Status Date / Time droperidol [From INAPSINE] Allergy Severe HYPERACTIVE Verified 12/10/21 08:49 Cephalosporins Allergy Intermediate RASH,GI Verified 12/10/21 08:49 [CEPHALOSPORINS] UPSET doxycycline [DOXYCYCLINE] Allergy Intermediate N/V/DIARRHE Verified 12/10/21 08:49 A latex [LATEX] Allergy Intermediate RASH Verified 12/10/21 08:49 amlodipine Allergy Unknown Unknown Verified 12/10/21 08:49 cephalexin [Keflex] Allergy Unknown Unknown Verified 12/10/21 08:49 ciprofloxacin [Cipro] Allergy Unknown Unknown Verified 12/10/21 08:49 levofloxacin [Levaquin] Allergy Unknown Unknown Verified 12/10/21 08:49 Sulfa (Sulfonamide Allergy Unknown Unknown Verified 12/10/21 08:49 Antibiotics) sulfamethoxazole AdvReac Mild GI UPSET Verified 12/10/21 08:49 [From BACTRIM] trimethoprim [From BACTRIM] AdvReac Mild GI UPSET Verified 12/10/21 08:49 From KEFLEX Allergy Intermediate LEG RASH Uncoded 06/03/21 14:19 hipacleanse Allergy Unknown Unknown Uncoded 06/03/21 14:19 Latex Exam Gloves Allergy Unknown Unknown Uncoded 06/03/21 14:19 Active Medications: Current Medications Acetaminophen (Acetaminophen 325 Mg Tablet) 650 mg PO Q6H PRN PRN Reason: Pain, Mild (Pain Scale 1-3) Dextrose (Dextrose 50 % 25 Gm/50 Ml Syringe) 25 gm IVPUSH Q15M PRN; Protocol PRN Reason: per Hypoglycemia Standing Ord. Diphenhydramine HCl (Diphenhydramine Hcl 25 Mg Capsule) 25 mg PO Q4H PRN PRN Reason: Itching Docusate Sodium (Docusate Sodium 100 Mg Capsule) 100 mg PO DAILY PRN PRN Reason: Constipation Enoxaparin Sodium (Enoxaparin Sodium 40 Mg/0.4 Ml Syringe) 40 mg SUBCUT Q12H [facility] Last Admin: 04/24/22 02:34 Dose: 40 mg Glucose (Glucose Gel 15 Gm Gel..Gram.) 15 gm PO Q15M PRN; Protocol PRN Reason: per Hypoglycemia Standing Ord. Lactated Ringer's (Lr) 1,000 mls @ 150 mls/hr IVCONT .Q6H40M [facility] Last Admin: 04/24/22 05:35 Dose: 150 mls/hr Insulin Human Lispro (Insulin Lispro 100 Unit/Ml 3 Ml Vial) 0 unit SUBCUT QIDACHS [facility]; Protocol Ondansetron HCl (Ondansetron Hcl 4 Mg/2 Ml Vial) 4 mg IVPUSH Q8H PRN PRN Reason: Nausea and Vomiting Oxycodone HCl (Oxycodone Hcl Immed Release 5 Mg Tablet) 5 mg PO Q4H PRN PRN Reason: Pain, Severe (Pain Scale 7-10) Last Admin: 04/24/22 02:33 Dose: 5 mg Sodium Chloride (0.9 % Sodium Chloride Flush 3 Ml Syringe) 3 ml IVFLUSH [facility] Home Medications Medication Instructions Recorded Confirmed Last Taken Type atorvastatin 80 mg tablet 80 mg PO DAILY 04/17/20 12/10/21 Unknown History dicyclomine 10 mg capsule 10 mg PO TID 04/17/20 12/10/21 Unknown History fluoxetine 40 mg capsule 40 mg PO DAILY 04/17/20 12/10/21 Unknown History insulin glargine 100 unit/mL (3 unit subcut 04/17/20 12/10/21 Unknown History mL) subcutaneous pen levothyroxine 100 mcg tablet 0 mcg PO 04/17/20 12/10/21 Unknown History lisinopril 2.5 mg tablet 2.5 mg PO DAILY 04/17/20 12/10/21 Unknown History metoprolol succinate 25 mg 25 mg PO DAILY 04/17/20 12/10/21 Unknown History tablet,extended release 24 hr pantoprazole 40 mg tablet,delayed 40 mg PO DAILY 05/30/20 12/10/21 Unknown History release pen needle, diabetic 31 gauge x #1,200 ea 04/03/21 12/10/21 Unknown History 07/14 (BD Ultra-Fine Short Pen Needle) Physical Exam Vital Signs and Narrative: Vital Signs: Last Vital Signs Temp 97.0 F 04/24/22 03:55 Pulse 60 04/24/22 03:55 Resp 16 04/24/22 03:55 BP 137/54 L 04/24/22 03:55 Pulse Ox 96 04/24/22 03:55 O2 Del Method 04/24/22 03:55 BMI result Body Mass Index 26.6 Const: General: cooperative and no acute distress Orientation/consciousness: patient oriented x3 Eyes: General: appearance normal, both eyes and all related structures Resp: Effort & Inspection: normal respiratory effort Auscultation: clear to auscultation bilaterally Cardio: Rate: regular rate Rhythm: regular rhythm GI: Other: suprapubic tenderness, no rebound or guarding Palpation (GI): Soft to palpat ion Auscultation: normal bowel sounds : Other: rate CVA tenderness Skin: General skin exam: no rashes or lesions noted Neuro: General: patient oriented x3 Cognition (Neuro): normal cognition Extrem: General: Yes normal to inspection and Yes no pedal edema Results Labs 04/23/22 14:15 04/23/22 14:15 Labs: Laboratory Results - last 24 hr 04/23/22 04/23/22 04/23/22 14:00 14:15 14:15 MCV 78.5 L MCH 25.2 L MCHC 32.1 RDW 16.9 H Plt Count 228 MPV 9.3 L Immature Gran % (Auto) 0.4 Neut % (Auto) 67.4 Lymph % (Auto) 25.5 [place] % (Auto) 4.6 Eos % (Auto) 1.4 Baso % (Auto) 0.7 Lymph # (Auto) 2.7 [place] # (Auto) 0.5 Eos # (Auto) 0.2 Baso # (Auto) 0.1 Abs Immat Gran (auto) 0.04 H Absolute Neuts (auto) 7.2 Absolute Nucleated RBC 0.000 Nucleated RBC % (auto) 0.0 Anion Gap 14 Estim Creat Clear Calc 50.5 Estimated GFR 57 Random Glucose 77 Lactic Acid Calcium 8.2 L Total Bilirubin 0.2 AST 23 ALT 10 Alkaline Phosphatase 119 H Total Protein 6.6 Albumin 3.8 Urine Color Yellow Urine Appearance Turbid Urine pH 5.5 Ur Specific [place] >= 1.030 H Urine Protein 100 (2+) H Urine Glucose (UA) 500 H Urine Ketones Trace Urine Blood Moderate (2+) H Urine Nitrite Positive H Ur Leukocyte Esterase Moderate (2+) H Urine RBC >20 H Urine WBC >50 H Ur Squamous Epith Cells 0-2 Urine Bacteria 4+ Hyaline Casts 0-2 COVID-19 (SALLY) COVID-19 Clin Com 04/24/22 04/24/22 00:26 01:36 MCV MCH MCHC RDW Plt Count MPV Immature Gran % (Auto) Neut % (Auto) Lymph % (Auto) [place] % (Auto) Eos % (Auto) Baso % (Auto) Lymph # (Auto) [place] # (Auto) Eos # (Auto) Baso # (Auto) Abs Immat Gran (auto) Absolute Neuts (auto) Absolute Nucleated RBC Nucleated RBC % (auto) Anion Gap Estim Creat Clear Calc Estimated GFR Random Glucose Lactic Acid 1.2 Calcium Total Bilirubin AST ALT Alkaline Phosphatase Total Protein Albumin Urine Color Urine Appearance Urine pH Ur Specific [place] Urine Protein Urine Glucose (UA) Urine Ketones Urine Blood Urine Nitrite Ur Leukocyte Esterase Urine RBC Urine WBC Ur Squamous Epith Cells Urine Bacteria Hyaline Casts COVID-19 (SALLY) Negative COVID-19 Clin Com See Note Imaging Radiologist's Impressions: Impressions Abdomen/Pelvis CT 04/23/22 23:31 IMPRESSION: 1. No renal calculi or hydronephrosis. 2. No perinephric inflammatory stranding. Cannot exclude the possibility of pyelonephritis on CT without intravenous contrast. Correlate with urinalysis. 3. Status post cholecystectomy. Mild prominence of the common hepatic duct and central intrahepatic bile ducts, likely normal for this patient. Correlate with LFTs for clinical significance. 4. Additional chronic findings, as described. Assessment and Plan (1) Acute bacterial pyelonephritis: Status: Acute (2) Acute UTI: Status: Acute Plan this is a 76-year-old female with past medical history of recurrent UTIs presents to the hospital with urinary symptoms as well as right CVA tenderness # acute UTI - failed outpatient therapy- - will treat with IV antibiotics - follow cultures # right CVA tenderness/pyelonephritis - no sepsis, afebrile, no leukocytosis - will treat with IV antibiotics - follow cultures # hypertension - continue antihypertensive # hypothyroidism - continue levothyroxine DVT prophylaxis: Lovenox Given patient's failed outpatient therapy patient require minimum 2 night inpatient hospital stay for further management and monitoring meds are pending reconciliation Time Spent With Patient Time: Total time managing care of this patient today ____ minutes. Quality Stroke Does the patient have a stroke diagnosis?: No VTE Prior VTE?: No VTE Risk Level:: Medical - moderate - high VTE Device Contraindication: Treatment Not Indicated VTE Drug Contraindication: N/A - Med Ordered
[2022-04-24 07:01] LABS: MANUAL DIFF FLAG NO
[2022-04-24 07:06] LABS: Basophils Percent Auto 0.5 % (0-2); Eosinophils Absolute Auto 0.1 X10*3/uL (0.0-0.4); Eosinophils Percent Auto 1.3 % (0-4); Hemoglobin 11.3 g/dl (12.0-16.0); Imm Gran Abs Auto 0.01 X10*3/uL (0.00-0.03); Imm Gran Pct Auto 0.2 % (0.0-0.4); Lymphocytes Absolute Auto 1.9 X10*3/uL (1.2-4.9); Lymphocytes Percent Auto 30.7 % (20-40); Mean Corpuscular HGB Conc 31.4 g/dl (31.0-35.0); Mean Corpuscular Volume 79.6 fL (80.0-98.0); Mean Platelet Volume 9.8 fL (9.4-12.3); Monocytes Absolute Auto 0.3 X10*3/uL (0.1-1.2); Monocytes Percent Auto 5.6 % (2-11); Neutrophils Absolute Auto 3.7 x10*3/uL (2.0-8.3); Neutrophils Percent Auto 61.7 % (45-73); Platelet Count 180 X10*3/uL (160-400); Red Blood Count 4.52 X10*6/uL (4.20-5.50); Red Cell Distribution Width 17.2 % (11.0-16.0)
[2022-04-24 07:26] LABS: Anion Gap 13 (12-20); Blood Urea Nitrogen 20 mg/dL (9-16); Calcium 7.8 mg/dL (8.4-10.2); Carbon Dioxide 24 mmol/L (22-29); Chloride 108 mmol/L (96-108); Creatinine Clr Calc Pharmacy 42.5; Estimated Glomerular Filt Rate 46; Glucose Random 117 mg/dL (60-115); Potassium 4.6 mmol/L (3.3-5.1); Sodium 140 mmol/L (135-145)
[2022-04-24 07:38] VITALS: BP 167/58; PULSE 63; RESP 14; TEMP 36.6; O2SAT 97
[2022-04-24 07:43] LABS: Glucose, Whole Blood 140 mg/dL (60-115)
--- NOTE | 2022-04-24 08:40 | PHA.MEDREC ---
Pharmacy Consult ? Medication Reconciliation Pharmacy has completed the medication reconciliation. Patient reported all medicaions. report using gabapentin prn even though last filled in september 2021. Patient reports using 20-32 units of Lantus. I put 20 units of Lantus in home list as more can be given if needed. Melody Garcia, BibianaD
--- NOTE | 2022-04-24 08:59 | PC.NURSE ---
PT IS SITTING UP, ATE BREAKFAST, IV FLUIDS ARE INFUSING. SHE IS AN ADMITTED PT. SHE REQUIRED NO INSULIN COVERAGE THIS AM
[2022-04-24 11:37] VITALS: BP 140/70; PULSE 62; RESP 16; TEMP 36.6; O2SAT 97
--- NOTE | 2022-04-24 11:43 | PM.EVENT ---
Event Note Date of Service: 04/24/22 Event Note: Pt seen/examined, has UTI/Pyelonephritis. A/P per H and P from this morning, add dilaudid for better pain control Time Spent With Patient Time: Total time managing care of this patient today ____ minutes.
[2022-04-24 11:47] LABS: Glucose, Whole Blood 254 mg/dL (60-115)
[2022-04-24] MEDS: Insulin Lispro 100 UNIT/ML 3 ML VIAL SUBCUT ×3 (12:10→21:01)
[2022-04-24] MEDS: HYDROmorphone HCl 0.5 MG/0.5 ML SYRINGE 0.25 MG IVPUSH ×3 (12:10→20:58)
[2022-04-24] MEDS: FLUoxetine HCl 20 MG CAPSULE 40 MG PO (12:10)
[2022-04-24] MEDS: Mirabegron 50 MG TAB.ER.24H PO (12:10)
[2022-04-24] MEDS: Atorvastatin Calcium 80 MG TABLET PO (12:11)
[2022-04-24] MEDS: Metoprolol Succinate ER 25 MG TAB.ER.24H PO (12:11)
[2022-04-24] MEDS: Levothyroxine Sodium 100 MCG TABLET PO (12:33)
[2022-04-24 12:56] VITALS: BMI 27.4
[2022-04-24] MEDS: Acetaminophen 325 MG TABLET 650 MG PO ×2 (14:51→23:37)
[2022-04-24] MEDS: Dicyclomine HCl 10 MG CAPSULE 20 MG PO ×2 (14:51→20:58)
--- NOTE | 2022-04-24 15:11 | PM.UROCN ---
History of Present Illness Consult details Consult date: 04/24/22 Narrative: 76-year-old female with h/o recurrent UTI, presents the hospital with complaints of urinary symptoms.? Patient reports that her symptoms including dysuria, urgency, frequency started about a week ago, she was started on Macrobid outpatient, with slight improvement in her symptoms, but once she completed antibiotics her symptoms returned.? She is also complaining of right flank pain radiating to the groin.? She denies any fever, no chills, no chest pain shortness of breath, no nausea or vomiting, no diarrhea constipation. U/A--nitrite positive, ++ WBC, leukocyte Estrace. Abdominal pelvic CT shows no renal calculi or hydronephrosis, no perinephric inflammatory stranding although CT is noncontrast. Review of Systems Review of Systems: 10 point ROS negative other than noted in HPI Yes [facility] Past Medical History Medical History Chronic kidney disease Hematuria Hx: UTI (urinary tract infection) Incomplete emptying of bladder Pyuria Urethral caruncle Surgical History Surgical History History of total hysterectomy Social History Social History Household Members: None Housing: Assisted Living Facility Do you presently have visiting nurse or other home services: Yes Alcohol intake: never Patient Tobacco Use Status: Never used Tobacco Current occupational status: disabled Meds Allergies Allergy/AdvReac Type Severity Reaction Status Date / Time droperidol [From INAPSINE] Allergy Severe HYPERACTIVE Verified 12/10/21 08:49 Cephalosporins Allergy Intermediate RASH,GI Verified 12/10/21 08:49 [CEPHALOSPORINS] UPSET doxycycline [DOXYCYCLINE] Allergy Intermediate N/V/DIARRHE Verified 12/10/21 08:49 A latex [LATEX] Allergy Intermediate RASH Verified 12/10/21 08:49 amlodipine Allergy Unknown Unknown Verified 12/10/21 08:49 cephalexin [Keflex] Allergy Unknown Unknown Verified 12/10/21 08:49 ciprofloxacin [Cipro] Allergy Unknown Unknown Verified 12/10/21 08:49 levofloxacin [Levaquin] Allergy Unknown Unknown Verified 12/10/21 08:49 Sulfa (Sulfonamide Allergy Unknown Unknown Verified 12/10/21 08:49 Antibiotics) sulfamethoxazole AdvReac Mild GI UPSET Verified 12/10/21 08:49 [From BACTRIM] trimethoprim [From BACTRIM] AdvReac Mild GI UPSET Verified 12/10/21 08:49 From KEFLEX Allergy Intermediate LEG RASH Uncoded 06/03/21 14:19 hipacleanse Allergy Unknown Unknown Uncoded 06/03/21 14:19 Latex Exam Gloves Allergy Unknown Unknown Uncoded 06/03/21 14:19 Active Medications: Current Medications Acetaminophen (Acetaminophen 325 Mg Tablet) 650 mg PO Q6H PRN PRN Reason: Pain, Mild (Pain Scale 1-3) Last Admin: 04/24/22 14:51 Dose: 650 mg Atorvastatin Calcium (Atorvastatin Calcium 80 Mg Tablet) 80 mg PO DAILY [facility] Last Admin: 04/24/22 12:11 Dose: 80 mg Dextrose (Dextrose 50 % 25 Gm/50 Ml Syringe) 25 gm IVPUSH Q15M PRN; Protocol PRN Reason: per Hypoglycemia Standing Ord. Dicyclomine HCl (Dicyclomine Hcl 10 Mg Capsule) 20 mg PO TID [facility] Last Admin: 04/24/22 14:51 Dose: 20 mg Diphenhydramine HCl (Diphenhydramine Hcl 25 Mg Capsule) 25 mg PO Q4H PRN PRN Reason: Itching Docusate Sodium (Docusate Sodium 100 Mg Capsule) 100 mg PO DAILY PRN PRN Reason: Constipation Enoxaparin Sodium (Enoxaparin Sodium 40 Mg/0.4 Ml Syringe) 40 mg SUBCUT Q12H [facility] Last Admin: 04/24/22 14:51 Dose: 40 mg Fluoxetine HCl (Fluoxetine Hcl 20 Mg Capsule) 40 mg PO DAILY [facility] Last Admin: 04/24/22 12:10 Dose: 40 mg Glucose (Glucose Gel 15 Gm Gel..Gram.) 15 gm PO Q15M PRN; Protocol PRN Reason: per Hypoglycemia Standing Ord. Hydromorphone HCl (Hydromorphone Hcl 0.5 Mg/0.5 Ml Syringe) 0.25 mg IVPUSH Q4H PRN; Protocol PRN Reason: Pain, Severe (Pain Scale 7-10) Last Admin: 04/24/22 12:10 Dose: 0.25 mg Lactated Ringer's (Lr) 1,000 mls @ 150 mls/hr IVCONT .Q6H40M [facility] Last Admin: 04/24/22 12:35 Dose: 150 mls/hr Insulin Glargine (Insulin Glargine,Hum.Rec.Anlog 100 Unit/Ml 10 Ml Vial) 20 unit SUBCUT BEDTIME [facility] Insulin Human Lispro (Insulin Lispro 100 Unit/Ml 3 Ml Vial) 0 unit SUBCUT QIDACHS [facility]; Protocol Last Admin: 04/24/22 12:10 Dose: 6 unit Insulin Human Lispro (Insulin Lispro 100 Unit/Ml 3 Ml Vial) 0 unit SUBCUT QIDACHS [facility]; Protocol Levothyroxine Sodium (Levothyroxine Sodium 100 Mcg Tablet) 100 mcg PO MoTuWeThFrSa@0600 [facility] Last Admin: 04/24/22 12:33 Dose: 100 mcg Metoprolol Succinate (Metoprolol Succinate Er 25 Mg Tab.Er.24h) 25 mg PO DAILY [facility]; Protocol Last Admin: 04/24/22 12:11 Dose: 25 mg Mirabegron (Mirabegron 50 Mg Tab.Er.24h) 50 mg PO DAILY [facility] Last Admin: 04/24/22 12:10 Dose: 50 mg Omeprazole (Omeprazole 20 Mg Capsule.Dr) 20 mg PO DAILY@0600 [facility] Ondansetron HCl (Ondansetron Hcl 4 Mg/2 Ml Vial) 4 mg IVPUSH Q8H PRN PRN Reason: Nausea and Vomiting Oxycodone HCl (Oxycodone Hcl Immed Release 5 Mg Tablet) 5 mg PO Q4H PRN PRN Reason: Pain, Severe (Pain Scale 7-10) Last Admin: 04/24/22 02:33 Dose: 5 mg Sodium Chloride (0.9 % Sodium Chloride Flush 3 Ml Syringe) 3 ml IVFLUSH QSHIFT [facility] Last Admin: 04/24/22 14:54 Dose: Not Given Home Medications Medication Instructions Recorded Confirmed Last Taken Type atorvastatin 80 mg tablet 80 mg PO DAILY 04/17/20 04/24/22 04/23/22 History dicyclomine 10 mg capsule 20 mg PO TID 04/17/20 04/24/22 04/23/22 History fluoxetine 40 mg capsule 40 mg PO DAILY 04/17/20 04/24/22 04/23/22 History insulin glargine 100 unit/mL (3 20 unit subcut BEDTIME 04/17/20 04/24/22 04/21/22 History mL) subcutaneous pen levothyroxine 100 mcg tablet 100 mcg PO MOTUWETHFRSA 04/17/20 04/24/22 04/23/22 History metoprolol succinate 25 mg 25 mg PO DAILY 04/17/20 04/24/22 04/23/22 History tablet,extended release 24 hr pantoprazole 40 mg tablet,delayed 40 mg PO DAILY 05/30/20 04/24/22 04/23/22 History release pen needle, diabetic 31 gauge x #1,200 ea 04/03/21 12/10/21 Unknown History 07/14 (BD Ultra-Fine Short Pen Needle) acetaminophen 325 mg tablet 650 mg PO Q6H PRN Pain 04/24/22 04/24/22 Unknown History insulin lispro 100 unit/mL 0 sliding scale dose subcut QIDACHS 04/24/22 04/24/22 Unknown History subcutaneous pen (Humalog KwikPen (U-100) Insulin) Physical Exam Vital Signs: Vital Signs: Last Vital Signs Temp 97.8 F 04/24/22 11:37 Pulse 62 04/24/22 11:37 Resp 16 04/24/22 11:37 BP 140/70 H 04/24/22 11:37 Pulse Ox 97 04/24/22 11:37 O2 Del Method 04/24/22 11:37 BMI result Body Mass Index 27.4 Const: General: cooperative and no acute distress Orientation/consciousness: patient oriented x3 HEENT: Head: Yes normal to inspection, Yes normocephalic and Yes atraumatic Eyes: Conjunctivae: conjunctivae normal Neck: Neck: Yes normal visual inspection and Yes trachea midline Chest: Chest palpation & inspection: normal inspection of the chest Resp: Effort & Inspection: normal respiratory effort Cardio: Rate: regular rate GI: Inspection: Yes normal to inspection Palpation (GI): Soft to palpation : General: Yes CVA tenderness (right) Back/Spine/Pelvis: Back: CVA tenderness (right) Skin: General skin exam: no rashes or lesions noted Neuro: General: patient oriented x3 Extrem: General: No edema Psych: Appearance: grossly normal Results Labs 04/24/22 06:55 04/24/22 06:55 Labs: Abnormal lab results 0204/24/22 04/24/22 Range/Units 06:55 06:55 07:40 Hgb 11.3 L (12.0-16.0) g/dl Hct 36.0 L (37.0-47.0) % MCV 79.6 L (80.0-98.0) fL MCH 25.0 L (27.0-33.0) pg RDW 17.2 H (11.0-16.0) % BUN 20 H (9-16) mg/dL POC Glucose 140 H (60-115) mg/dL Random Glucose 117 H (60-115) mg/dL Calcium 7.8 L (8.4-10.2) mg/dL 04/24/22 Range/Units 11:43 Hgb (12.0-16.0) g/dl Hct (37.0-47.0) % MCV (80.0-98.0) fL MCH (27.0-33.0) pg RDW (11.0-16.0) % BUN (9-16) mg/dL POC Glucose 254 H (60-115) mg/dL Random Glucose (60-115) mg/dL Calcium (8.4-10.2) mg/dL Short CBC 04/24/22 Range/Units 06:55 WBC 6.0 (4.8-10.8) X10*3/uL Hgb 11.3 L (12.0-16.0) g/dl Hct 36.0 L (37.0-47.0) % Plt Count 180 (160-400) X10*3/uL BMP 04/24/22 06:55 Sodium 140 Potassium 4.6 Chloride 108 Carbon Dioxide 24 BUN 20 H Creatinine 1.14 Calcium 7.8 L Urine 04/23/22 Range/Units 14:00 Urine Color Yellow Urine Appearance Turbid Urine pH 5.5 (5.0-9.0) Ur Specific [place] >= 1.030 H (1.005-1.025) Urine Protein 100 (2+) H (Neg-Trace) mg/dL Urine Glucose (UA) 500 H (Negative) mg/dL Imaging Abdomen CT scan report/results: report reviewed and image reviewed CT scan - pelvis: report reviewed and image reviewed Additional studies: Date of Service: 04/23/22 EXAMINATION: CT ABDOMEN AND PELVIS WITHOUT CONTRAST? CLINICAL INFORMATION: Right flank pain. Rule out stone or pyelonephritis.? COMPARISON: None? FINDINGS: LUNG BASES: Mild subpleural reticulation the lung bases consistent with some combination of mild interstitial fibrosis and/or atelectasis. Sub-4 mm left basilar calcified granuloma noted.? LIVER, GALLBLADDER, AND BILIARY TREE: Normal hepatic attenuation in size. No liver lesion. Status post cholecystectomy. Common hepatic duct measures up to 1 cm in diameter, at the upper limits of normal in size. Slight prominence of central intrahepatic bile ducts. Findings are likely normal for this patient. Correlate with LFTs for clinical significance.? PANCREAS: Unremarkable.? SPLEEN: Unremarkable.? ADRENAL GLANDS: Unremarkable.? KIDNEYS AND URETERS: The kidneys are normal in size, shape, and attenuation. No hydronephrosis, hydroureter, or calculi seen. No perinephric stranding. ? BLADDER: Unremarkable.? GASTROINTESTINAL TRACT: Probable small hiatal hernia. No dilated bowel loops. No bowel wall thickening. Moderate volume formed stool within the colon. Appendix is not visualized. No inflammatory change the base of the cecum. No free air or ascites.? ABDOMINAL WALL: Surgical closure clips in the ventral abdominal wall. No significant hernia.? LYMPH NODES: No lymphadenopathy. VASCULAR: Mildly tortuous normal caliber abdominal aorta. Moderate vascular calcifications. PELVIC VISCERA: Status post hysterectomy.? OSSEOUS STRUCTURES: Generalized osteopenia. No acute fracture or suspicious osseous lesion. Status post L3-S1 posterior spinal fusion with intact posterior mohan and pedicle screws at L3-L5 and intervertebral spacers in place at L2-L3 and L4-L5. Spinal stimulator ascends into the spinal canal of the visualized thoracic spine. Retrolisthesis at L2-L3. Multilevel degenerative disc disease most advanced at L2-L3. Bilateral hip joint osteoarthritis.? IMPRESSION: 1.? No renal calculi or hydronephrosis. 2.? No perinephric inflammatory stranding. Cannot exclude the possibility of pyelonephritis on CT without intravenous contrast. Correlate with urinalysis. 3.? Status post cholecystectomy. Mild prominence of the common hepatic duct and central intrahepatic bile ducts, likely normal for this patient. Correlate with LFTs for clinical significance. 4.? Additional chronic findings, as described. ? Assessment and Plan (1) Acute UTI: Status: Acute (2) Acute right flank pain: Status: Acute (3) Pyelonephritis of right kidney: Status: Acute (4) Pyuria: Status: Acute Plan Recurrent UTI's, multiple antibiotic allergy/sensitivites Acute UTI - failed outpatient therapy- IV antibiotics initiated - follow cultures Right CVA tenderness CT imaging no hydronephrosis or urolithiasis No surgical intervention planned at this time Time Spent With Patient Time: Total time managing care of this patient today ____ minutes. Procedures Date of Service Date of Service: 04/24/22
[2022-04-24 15:54] VITALS: BP 148/67; PULSE 64; RESP 16; TEMP 36.4; O2SAT 100
[2022-04-24 16:28] LABS: Glucose, Whole Blood 212 mg/dL (60-115)
[2022-04-24 19:33] VITALS: BP 119/58; PULSE 65; RESP 16; TEMP 36.3; O2SAT 97
[2022-04-24 20:40] LABS: Glucose, Whole Blood 186 mg/dL (60-115)
[2022-04-24] MEDS: Insulin Glargine,Hum.rec.anlog 100 UNIT/ML 10 ML VIAL 20 UNIT SUBCUT (21:00)
[2022-04-24] MEDS: 0.9 % Sodium Chloride Flush 3 ML SYRINGE IVFLUSH (21:01)
[2022-04-25] MEDS: HYDROmorphone HCl 0.5 MG/0.5 ML SYRINGE 0.25 MG IVPUSH ×2 (00:40→04:49)
[2022-04-25] MEDS: Lactated Ringers 1,000 ML 150 ML IVCONT ×4 (02:02→22:19)
[2022-04-25] MEDS: Enoxaparin Sodium 40 MG/0.4 ML SYRINGE SUBCUT ×2 (02:51→13:35)
[2022-04-25 03:13] VITALS: BP 150/67; PULSE 60; RESP 16; TEMP 36.7; O2SAT 96
[2022-04-25] MEDS: Omeprazole 20 MG CAPSULE.DR PO (04:54)
[2022-04-25] MEDS: Levothyroxine Sodium 100 MCG TABLET PO (05:04)
[2022-04-25 07:38] LABS: Glucose, Whole Blood 134 mg/dL (60-115)
[2022-04-25 08:00] VITALS: BP 150/60; PULSE 67; RESP 18; TEMP 36.8; O2SAT 96
[2022-04-25] MEDS: Metoprolol Succinate ER 25 MG TAB.ER.24H PO (08:00)
[2022-04-25] MEDS: Atorvastatin Calcium 80 MG TABLET PO (08:00)
[2022-04-25] MEDS: Mirabegron 50 MG TAB.ER.24H PO (08:00)
[2022-04-25] MEDS: Dicyclomine HCl 10 MG CAPSULE 20 MG PO ×3 (08:00→19:40)
[2022-04-25] MEDS: FLUoxetine HCl 20 MG CAPSULE 40 MG PO (08:01)
[2022-04-25] MEDS: 0.9 % Sodium Chloride Flush 3 ML SYRINGE IVFLUSH ×2 (08:05→19:41)
[2022-04-25] MEDS: Acetaminophen 325 MG TABLET 650 MG PO ×2 (08:06→16:47)
--- NOTE | 2022-04-25 08:50 | P.PNIM_ITS ---
Subjective Subjective Date of Service: 04/25/22 Interval History: f/u on cystitis, pyelonephritis c/o flank, abd pain, no fever, Physical Exam Vital Signs: Vital Signs: Last Vital Signs Temp 98.3 F 04/25/22 08:00 Pulse 67 04/25/22 08:00 Resp 18 04/25/22 08:00 BP 150/60 H 04/25/22 08:00 Pulse Ox 96 04/25/22 08:00 O2 Del Method 04/25/22 08:00 BMI result Body Mass Index 27.4 Const: Other: General: AO X 3, no acute distress Resp: CTA bilateral CVS: S1,S2,RRR GI: +BS,lowe abd tenderness right flank tenderness, no distention Skin: No rash Neuro: motor grossly intact Psych: appropriate affect Objective Data Active Medications Acetaminophen (Acetaminophen 325 Mg Tablet) 650 mg PO Q6H PRN PRN Reason: Pain, Mild (Pain Scale 1-3) Last Admin: 04/25/22 08:06 Dose: 650 mg Documented By: RAMON Atorvastatin Calcium (Atorvastatin Calcium 80 Mg Tablet) 80 mg PO DAILY [facility] Last Admin: 04/25/22 08:00 Dose: 80 mg Documented By: RAMON Dextrose (Dextrose 50 % 25 Gm/50 Ml Syringe) 25 gm IVPUSH Q15M PRN; Protocol PRN Reason: per Hypoglycemia Standing Ord. Dicyclomine HCl (Dicyclomine Hcl 10 Mg Capsule) 20 mg PO TID [facility] Last Admin: 04/25/22 08:00 Dose: 20 mg Documented By: RAMON Diphenhydramine HCl (Diphenhydramine Hcl 25 Mg Capsule) 25 mg PO Q4H PRN PRN Reason: Itching Docusate Sodium (Docusate Sodium 100 Mg Capsule) 100 mg PO DAILY PRN PRN Reason: Constipation Enoxaparin Sodium (Enoxaparin Sodium 40 Mg/0.4 Ml Syringe) 40 mg SUBCUT Q12H [facility] Last Admin: 04/25/22 02:51 Dose: 40 mg Documented By: JOHNNYORALB Fluoxetine HCl (Fluoxetine Hcl 20 Mg Capsule) 40 mg PO DAILY [facility] Last Admin: 04/25/22 08:01 Dose: 40 mg Documented By: RAMON Glucose (Glucose Gel 15 Gm Gel..Gram.) 15 gm PO Q15M PRN; Protocol PRN Reason: per Hypoglycemia Standing Ord. Hydromorphone HCl (Hydromorphone Hcl 0.5 Mg/0.5 Ml Syringe) 0.5 mg IVPUSH Q4H PRN; Protocol PRN Reason: Pain, Severe (Pain Scale 7-10) Lactated Ringer's (Lr) 1,000 mls @ 150 mls/hr IVCONT .Q6H40M [facility] Last Admin: 04/25/22 07:58 Dose: 150 mls/hr Documented By: RAMON Ceftriaxone Sodium 1 gm/ (Sodium Chloride) 50 mls @ 100 mls/hr IV Q24H [facility] Insulin Glargine (Insulin Glargine,Hum.Rec.Anlog 100 Unit/Ml 10 Ml Vial) 20 unit SUBCUT BEDTIME [facility] Last Admin: 04/24/22 21:00 Dose: 20 unit Documented By: DOMINIQUE Insulin Human Lispro (Insulin Lispro 100 Unit/Ml 3 Ml Vial) 0 unit SUBCUT QIDACHS [facility]; Protocol Last Admin: 04/25/22 08:04 Dose: Not Given Documented By: RAMON Non-Admin Reason: No Insulin Coverage Insulin Human Lispro (Insulin Lispro 100 Unit/Ml 3 Ml Vial) 0 unit SUBCUT QIDACHS [facility]; Protocol Last Admin: 04/25/22 08:04 Dose: Not Given Documented By: RAMON Non-Admin Reason: Duplicate Order Levothyroxine Sodium (Levothyroxine Sodium 100 Mcg Tablet) 100 mcg PO MoTuWeThFrSa@0600 [facility] Last Admin: 04/25/22 05:04 Dose: 100 mcg Documented By: DOMINIQUE Metoprolol Succinate (Metoprolol Succinate Er 25 Mg Tab.Er.24h) 25 mg PO DAILY [facility]; Protocol Last Admin: 04/25/22 08:00 Dose: 25 mg Documented By: RAMON Mirabegron (Mirabegron 50 Mg Tab.Er.24h) 50 mg PO DAILY [facility] Last Admin: 04/25/22 08:00 Dose: 50 mg Documented By: RAMON Omeprazole (Omeprazole 20 Mg Capsule.Dr) 20 mg PO DAILY@0600 [facility] Last Admin: 04/25/22 04:54 Dose: 20 mg Documented By: DOMINIQUE Ondansetron HCl (Ondansetron Hcl 4 Mg/2 Ml Vial) 4 mg IVPUSH Q8H PRN PRN Reason: Nausea and Vomiting Oxycodone HCl (Oxycodone Hcl Immed Release 5 Mg Tablet) 5 mg PO Q4H PRN PRN Reason: Pain, Severe (Pain Scale 7-10) Last Admin: 04/24/22 02:33 Dose: 5 mg Documented By: EDITH Sodium Chloride (0.9 % Sodium Chloride Flush 3 Ml Syringe) [facility] Last Admin: 04/25/22 08:05 Dose: 3 ml Documented By: LOGANIC Labs 04/24/22 06:55 04/24/22 06:55 Labs: Laboratory Results - last 24 hr 04/24/22 04/24/22 04/24/22 11:43 16:24 20:34 POC Glucose 254 H 212 H 186 H 04/25/22 07:31 POC Glucose 134 H Microbiology Microbiology Results: Microbiology 04/23/22 Unknown Urine Culture - Final Urine clean catch - Urine lopez top Escherichia coli 04/24/22 00:26 Blood Culture - Preliminary Blood - Venous No growth after 24 hours. Assessment and Plan (1) Pyuria: Status: Acute (2) Pyelonephritis of right kidney: Status: Acute (3) Hypertension: Status: Acute (4) Hypothyroidism: Status: Acute Plan 76-year-old female with past medical history of recurrent UTIs presents to the hospital with urinary symptoms as well as right CVA tenderness #? acute? UTI/Pyelonephritis, failed outpatient therapy -continue IV ceftriaxone. Culture 04/23 = E.coli sensitive to Ceftriaxone -Dilaudid for pain, -Uro consult noted #? hypertension--Metoprolol #? hypothyroidism -? continue levothyroxine Lovenox for DVT P Need: UTI/Pyelo that failied PO and needs IV Abx Time Spent With Patient Time: Total time managing care of this patient today ____ minutes. Quality Stroke Does the patient have a stroke diagnosis?: No VTE Prior VTE?: No VTE Risk Level:: Medical - moderate - high VTE Device Contraindication: Treatment Not Indicated VTE Drug Contraindication: N/A - Med Ordered
[2022-04-25 09:18] VITALS: RESP 18
[2022-04-25] MEDS: HYDROmorphone HCl 0.5 MG/0.5 ML SYRINGE IVPUSH ×4 (09:18→22:23)
[2022-04-25] MEDS: cefTRIAXone sodium 1 GM in 0.9 % Sodium Chloride 50 ML IV (09:19)
[2022-04-25] MEDS: oxyCODONE HCl Immed Release 5 MG TABLET PO ×3 (10:07→19:29)
[2022-04-25 12:08] LABS: Glucose, Whole Blood 198 mg/dL (60-115)
[2022-04-25] MEDS: Insulin Lispro 100 UNIT/ML 3 ML VIAL SUBCUT ×2 (12:19→17:44)
[2022-04-25 15:25] VITALS: BP 165/74; PULSE 60; RESP 17; TEMP 36.3; O2SAT 97
--- NOTE | 2022-04-25 16:17 | MHC.CM.PN ---
MARY ATTEMPTED TO MEET WITH PT WHO REPORTS SHE IS IN TOO MUCH PAIN AND WOULD LIKE TO DEFER TO TOMORROW WHEN SHE HOPES TO FEEL BETTER SHE ALSO EXPRESSED FRUSTRATION ABOUT NOT GETTING ENOUGH PAIN MEDICATION HOWEVER SHE ALSO STATED THE LACER AND TIER WAS ALREADY DISCUSSING THIS WITH MD HERNANDEZ WILL REVISIT TOMORROW
[2022-04-25 17:13] LABS: Glucose, Whole Blood 192 mg/dL (60-115)
[2022-04-25 19:28] VITALS: BP 151/69; PULSE 80; RESP 18; TEMP 36; O2SAT 98
[2022-04-25] MEDS: Docusate Sodium 100 MG CAPSULE PO (19:29)
[2022-04-25] MEDS: Insulin Glargine,Hum.rec.anlog 100 UNIT/ML 10 ML VIAL 20 UNIT SUBCUT (19:41)
[2022-04-25 20:24] LABS: Glucose, Whole Blood 143 mg/dL (60-115)
[2022-04-26] VITALS: RESP 18
[2022-04-26] MEDS: oxyCODONE HCl Immed Release 5 MG TABLET PO ×4 (01:09→22:17)
[2022-04-26] MEDS: Enoxaparin Sodium 40 MG/0.4 ML SYRINGE SUBCUT ×2 (01:09→13:56)
[2022-04-26 03:37] VITALS: BP 146/68; PULSE 67; RESP 18; TEMP 36.4; O2SAT 95
[2022-04-26] MEDS: HYDROmorphone HCl 0.5 MG/0.5 ML SYRINGE IVPUSH ×5 (04:53→23:26)
[2022-04-26] MEDS: Levothyroxine Sodium 100 MCG TABLET PO (05:00)
[2022-04-26] MEDS: Omeprazole 20 MG CAPSULE.DR PO (05:00)
[2022-04-26 05:36] VITALS: RESP 18
[2022-04-26 07:40] LABS: Glucose, Whole Blood 93 mg/dL (60-115)
[2022-04-26 08:00] VITALS: BP 160/73; PULSE 70; RESP 16; TEMP 36.4; O2SAT 92
[2022-04-26] MEDS: 0.9 % Sodium Chloride Flush 3 ML SYRINGE IVFLUSH ×3 (08:55→20:52)
[2022-04-26] MEDS: Metoprolol Succinate ER 25 MG TAB.ER.24H PO (08:55)
[2022-04-26] MEDS: Atorvastatin Calcium 80 MG TABLET PO (08:55)
[2022-04-26] MEDS: Mirabegron 50 MG TAB.ER.24H PO (08:55)
[2022-04-26] MEDS: FLUoxetine HCl 20 MG CAPSULE 40 MG PO (08:57)
[2022-04-26] MEDS: Dicyclomine HCl 10 MG CAPSULE 20 MG PO ×3 (08:57→20:51)
[2022-04-26] MEDS: cefTRIAXone sodium 1 GM in 0.9 % Sodium Chloride 50 ML IV (08:58)
[2022-04-26] MEDS: Acetaminophen 325 MG TABLET 650 MG PO ×2 (11:04→22:16)
[2022-04-26 11:29] LABS: Glucose, Whole Blood 149 mg/dL (60-115)
--- NOTE | 2022-04-26 13:17 | HO.PM.IMPN ---
Subjective Subjective Date of Service: 04/26/22 Interval History: uti ,uncontrolled htn Review of Systems still has dusuria and pain no fevers denies any nausea or vomitin Physical Exam Vital Signs: Vital Signs: Last Vital Signs Temp 97.5 F 04/26/22 08:00 Pulse 70 04/26/22 08:00 Resp 16 04/26/22 08:00 BP 160/73 H 04/26/22 08:00 Pulse Ox 92 04/26/22 08:00 O2 Del Method 04/26/22 08:00 BMI result Body Mass Index 27.4 Appearance: Alert.? Oriented X3. cvs: rrr, [id number] , no murmur res: clear to auscultation ,no rhonchii or wheezing abd: no rebound or guarding ,nt, bs present. gu : right cva tenderness ext pulses present , no cyanosis . neuro: axo3 , nonfocal. Objective Data Active Medications Acetaminophen (Acetaminophen 325 Mg Tablet) 650 mg PO Q6H PRN PRN Reason: Pain, Mild (Pain Scale 1-3) Last Admin: 04/26/22 11:04 Dose: 650 mg Documented By: JACOB Atorvastatin Calcium (Atorvastatin Calcium 80 Mg Tablet) 80 mg PO DAILY [facility] Last Admin: 04/26/22 08:55 Dose: 80 mg Documented By: RAMON Carvedilol (Carvedilol 6.25 Mg Tablet) 6.25 mg PO BID [facility]; Protocol Dextrose (Dextrose 50 % 25 Gm/50 Ml Syringe) 25 gm IVPUSH Q15M PRN; Protocol PRN Reason: per Hypoglycemia Standing Ord. Dicyclomine HCl (Dicyclomine Hcl 10 Mg Capsule) 20 mg PO TID [facility] Last Admin: 04/26/22 08:57 Dose: 20 mg Documented By: RAMON Diphenhydramine HCl (Diphenhydramine Hcl 25 Mg Capsule) 25 mg PO Q4H PRN PRN Reason: Itching Docusate Sodium (Docusate Sodium 100 Mg Capsule) 100 mg PO DAILY PRN PRN Reason: Constipation Last Admin: 04/25/22 19:29 Dose: 100 mg Documented By: OZORALB Enoxaparin Sodium (Enoxaparin Sodium 40 Mg/0.4 Ml Syringe) 40 mg SUBCUT Q12H [facility] Last Admin: 04/26/22 01:09 Dose: 40 mg Documented By: DOMINIQUE Fluoxetine HCl (Fluoxetine Hcl 20 Mg Capsule) 40 mg PO DAILY [facility] Last Admin: 04/26/22 08:57 Dose: 40 mg Documented By: RAMON Glucose (Glucose Gel 15 Gm Gel..Gram.) 15 gm PO Q15M PRN; Protocol PRN Reason: per Hypoglycemia Standing Ord. Hydromorphone HCl (Hydromorphone Hcl 0.5 Mg/0.5 Ml Syringe) 0.5 mg IVPUSH Q4H PRN; Protocol PRN Reason: Pain, Severe (Pain Scale 7-10) Last Admin: 04/26/22 10:21 Dose: 0.5 mg Documented By: RAMON Ceftriaxone Sodium 1 gm/ (Sodium Chloride) 50 mls @ 100 mls/hr IV Q24H [facility] Last Infusion: 04/26/22 09:46 Dose: 0 mls/hr Documented By: RAMON Insulin Glargine (Insulin Glargine,Hum.Rec.Anlog 100 Unit/Ml 10 Ml Vial) 20 unit SUBCUT BEDTIME [facility] Last Admin: 04/25/22 19:41 Dose: 20 unit Documented By: DOMINIQUE Insulin Human Lispro (Insulin Lispro 100 Unit/Ml 3 Ml Vial) 0 unit SUBCUT QIDACHS [facility]; Protocol Last Admin: 04/26/22 11:54 Dose: Not Given Documented By: RAMON Non-Admin Reason: No Insulin Coverage Levothyroxine Sodium (Levothyroxine Sodium 100 Mcg Tablet) 100 mcg PO MoTuWeThFrSa@0600 [facility] Last Admin: 04/26/22 05:00 Dose: 100 mcg Documented By: DOMINIQUE Mirabegron (Mirabegron 50 Mg Tab.Er.24h) 50 mg PO DAILY [facility] Last Admin: 04/26/22 08:55 Dose: 50 mg Documented By: RAMON Omeprazole (Omeprazole 20 Mg Capsule.Dr) 20 mg PO DAILY@0600 [facility] Last Admin: 04/26/22 05:00 Dose: 20 mg Documented By: DOMINIQUE Ondansetron HCl (Ondansetron Hcl 4 Mg/2 Ml Vial) 4 mg IVPUSH Q8H PRN PRN Reason: Nausea and Vomiting Oxycodone HCl (Oxycodone Hcl Immed Release 5 Mg Tablet) 5 mg PO Q4H PRN PRN Reason: Pain, Severe (Pain Scale 7-10) Last Admin: 04/26/22 11:04 Dose: 5 mg Documented By: JACOB Sodium Chloride (0.9 % Sodium Chloride Flush 3 Ml Syringe) 3 [facility] Last Admin: 04/26/22 08:55 Dose: 3 ml Documented By: RAMON Labs 04/24/22 06:55 04/24/22 06:55 Labs: Laboratory Results - last 24 hr 04/25/22 04/25/22 04/26/22 16:30 19:33 07:27 POC Glucose 192 H 143 H 93 04/26/22 11:21 POC Glucose 149 H Microbiology Microbiology Results: Microbiology 04/24/22 06:55 Blood Culture - Preliminary Blood - Venous No growth after 48 hours. 04/24/22 00:26 Blood Culture - Preliminary Blood - Venous No growth after 48 hours. Assessment and Plan (1) Acute UTI: Status: Acute (2) Hypertension: Status: Acute (3) Pyelonephritis of right kidney: Status: Acute Plan hospital day:2 76-year-old female with past medical history of recurrent UTIs presents to the hospital with urinary symptoms as well as right CVA tenderness ? acute? UTI/Pyelonephritis, failed outpatient therapy -continue IV ceftriaxone. Culture 04/23 = E.coli sensitive to Ceftriaxone -Dilaudid for pain, -Uro consult noted ? hypertension-chnaged metoprolol to coreg from better blood pressure control. ? hypothyroidism -? continue levothyroxine Lovenox for DVT P Need: UTI/Pyelo that failied PO and needs IV Abx Time Spent With Patient Time: Total time managing care of this patient today ____ minutes. Quality Stroke Does the patient have a stroke diagnosis?: No VTE Prior VTE?: No VTE Risk Level:: Medical - moderate - high VTE Device Contraindication: Treatment Not Indicated VTE Drug Contraindication: N/A - Med Ordered
--- NOTE | 2022-04-26 14:08 | MHC.CM.PN ---
PT REPORTS SHE LIVES IN AN ILF SHE IS INDEPENDENT WITH CARE AND HAS NO SERVICES PT USES A ROLLATOR TO AMBULATE HER PCP IS NALLELY CORRAL SHE IS COVID VAX X 5 HCP ON FILE IMM DELIVERED CURRENT DC PLAN, HOME VS HOME WITH VNA PT INTERESTED IN VNA, [facility] IS PREFERRED MAY NEED TRANSPORT
[2022-04-26 15:09] VITALS: BP 152/70; PULSE 65; RESP 18; TEMP 36.8; O2SAT 95
[2022-04-26 17:09] LABS: Glucose, Whole Blood 189 mg/dL (60-115)
[2022-04-26] MEDS: Insulin Lispro 100 UNIT/ML 3 ML VIAL SUBCUT ×2 (17:23→20:51)
[2022-04-26 20:00] VITALS: BP 140/73; PULSE 131; RESP 18; TEMP 36.8; O2SAT 93
[2022-04-26 20:34] LABS: Glucose, Whole Blood 185 mg/dL (60-115)
[2022-04-26] MEDS: carvediloL 6.25 MG TABLET PO (20:51)
[2022-04-26] MEDS: Insulin Glargine,Hum.rec.anlog 100 UNIT/ML 10 ML VIAL 20 UNIT SUBCUT (20:52)
[2022-04-27] MEDS: Enoxaparin Sodium 40 MG/0.4 ML SYRINGE SUBCUT ×2 (01:39→14:13)
[2022-04-27 04:00] VITALS: BP 152/76; PULSE 62; RESP 18; TEMP 36.1; O2SAT 96
[2022-04-27] MEDS: HYDROmorphone HCl 0.5 MG/0.5 ML SYRINGE IVPUSH ×4 (04:28→20:16)
[2022-04-27] MEDS: Omeprazole 20 MG CAPSULE.DR PO (04:33)
[2022-04-27 08:00] VITALS: BP 161/60; PULSE 71; RESP 18; TEMP 36.4; O2SAT 93
[2022-04-27 08:00] LABS: Glucose, Whole Blood 112 mg/dL (60-115)
[2022-04-27] MEDS: carvediloL 6.25 MG TABLET PO ×2 (09:00→20:17)
[2022-04-27] MEDS: Atorvastatin Calcium 80 MG TABLET PO (09:00)
[2022-04-27] MEDS: FLUoxetine HCl 20 MG CAPSULE 40 MG PO (09:00)
[2022-04-27] MEDS: Mirabegron 50 MG TAB.ER.24H PO (09:00)
[2022-04-27] MEDS: Dicyclomine HCl 10 MG CAPSULE 20 MG PO ×3 (09:00→20:17)
[2022-04-27] MEDS: cefTRIAXone sodium 1 GM in 0.9 % Sodium Chloride 50 ML IV (09:01)
[2022-04-27] MEDS: 0.9 % Sodium Chloride Flush 3 ML SYRINGE IVFLUSH ×3 (09:03→20:16)
--- NOTE | 2022-04-27 10:49 | P.PNIM_ITS ---
Subjective Subjective Date of Service: 04/27/22 Interval History: uti ,uncontrolled htn Review of Systems still has dusuria and pain no fevers denies any nausea or vomitin Physical Exam Vital Signs: Vital Signs: Last Vital Signs Temp 97.6 F 04/27/22 08:00 Pulse 71 04/27/22 08:00 Resp 18 04/27/22 08:00 BP 161/60 H 04/27/22 08:00 Pulse Ox 93 04/27/22 08:00 O2 Del Method 04/27/22 08:00 BMI result Body Mass Index 27.4 Appearance: Alert.? Oriented X3. cvs: rrr, [id number] , no murmur res: clear to auscultation ,no rhonchii or wheezing abd: no rebound or guarding ,nt, bs present. gu : right cva tenderness ext pulses present , no cyanosis . neuro: axo3 , nonfocal. Objective Data Active Medications Acetaminophen (Acetaminophen 325 Mg Tablet) 650 mg PO Q6H PRN PRN Reason: Pain, Mild (Pain Scale 1-3) Last Admin: 04/26/22 22:16 Dose: 650 mg Documented By: BRANDEN Atorvastatin Calcium (Atorvastatin Calcium 80 Mg Tablet) 80 mg PO DAILY [facility] Last Admin: 04/27/22 09:00 Dose: 80 mg Documented By: PANCHITO Carvedilol (Carvedilol 6.25 Mg Tablet) 6.25 mg PO BID [facility]; Protocol Last Admin: 04/27/22 09:00 Dose: 6.25 mg Documented By: PANCHITO Dextrose (Dextrose 50 % 25 Gm/50 Ml Syringe) 25 gm IVPUSH Q15M PRN; Protocol PRN Reason: per Hypoglycemia Standing Ord. Dicyclomine HCl (Dicyclomine Hcl 10 Mg Capsule) 20 mg PO TID [facility] Last Admin: 04/27/22 09:00 Dose: 20 mg Documented By: PANCHITO Diphenhydramine HCl (Diphenhydramine Hcl 25 Mg Capsule) 25 mg PO Q4H PRN PRN Reason: Itching Docusate Sodium (Docusate Sodium 100 Mg Capsule) 100 mg PO DAILY PRN PRN Reason: Constipation Last Admin: 04/25/22 19:29 Dose: 100 mg Documented By: JOHNNYORALB Enoxaparin Sodium (Enoxaparin Sodium 40 Mg/0.4 Ml Syringe) 40 mg SUBCUT Q12H [facility] Last Admin: 04/27/22 01:39 Dose: 40 mg Documented By: BRANDEN Fluoxetine HCl (Fluoxetine Hcl 20 Mg Capsule) 40 mg PO DAILY [facility] Last Admin: 04/27/22 09:00 Dose: 40 mg Documented By: PANCHITO Glucose (Glucose Gel 15 Gm Gel..Gram.) 15 gm PO Q15M PRN; Protocol PRN Reason: per Hypoglycemia Standing Ord. Hydromorphone HCl (Hydromorphone Hcl 0.5 Mg/0.5 Ml Syringe) 0.5 mg IVPUSH Q4H PRN; Protocol PRN Reason: Pain, Severe (Pain Scale 7-10) Last Admin: 04/27/22 09:45 Dose: 0.5 mg Documented By: PANCHITO Ceftriaxone Sodium 1 gm/ (Sodium Chloride) 50 mls @ 100 mls/hr IV Q24H [facility] Last Infusion: 04/27/22 09:49 Dose: 0 mls/hr Documented By: PANCHITO Insulin Glargine (Insulin Glargine,Hum.Rec.Anlog 100 Unit/Ml 10 Ml Vial) 20 unit SUBCUT BEDTIME [facility] Last Admin: 04/26/22 20:52 Dose: 20 unit Documented By: BRANDEN Insulin Human Lispro (Insulin Lispro 100 Unit/Ml 3 Ml Vial) 0 unit SUBCUT QIDACHS [facility]; Protocol Last Admin: 04/27/22 08:40 Dose: Not Given Documented By: PANCHITO Non-Admin Reason: No Insulin Coverage Levothyroxine Sodium (Levothyroxine Sodium 100 Mcg Tablet) 100 mcg PO MoTuWeThFrSa@0600 [facility] Last Admin: 04/26/22 05:00 Dose: 100 mcg Documented By: JOHNNYORALTing Mirabegron (Mirabegron 50 Mg Tab.Er.24h) 50 mg PO DAILY [facility] Last Admin: 04/27/22 09:00 Dose: 50 mg Documented By: PANCHITO Omeprazole (Omeprazole 20 Mg Capsule.Dr) 20 mg PO DAILY@0600 [facility] Last Admin: 04/27/22 04:33 Dose: 20 mg Documented By: BRANDEN Ondansetron HCl (Ondansetron Hcl 4 Mg/2 Ml Vial) 4 mg IVPUSH Q8H PRN PRN Reason: Nausea and Vomiting Oxycodone HCl (Oxycodone Hcl Immed Release 5 Mg Tablet) 5 mg PO Q4H PRN PRN Reason: Pain, Severe (Pain Scale 7-10) Last Admin: 04/26/22 22:17 Dose: 5 mg Documented By: BRANDEN Sodium Chloride (0.9 % Sodium Chloride Flush 3 Ml Syringe) 3 ml IVFLUSH QSHIFT [facility] Last Admin: 04/27/22 09:03 Dose: 3 ml Documented By: PANCHITO Labs 04/24/22 06:55 04/24/22 06:55 Labs: Laboratory Results - last 24 hr 04/26/22 04/26/22 04/26/22 11:21 16:59 20:10 POC Glucose 149 H 189 H 185 H 04/27/22 07:45 POC Glucose 112 Microbiology Microbiology Results: Microbiology 04/24/22 06:55 Blood Culture - Preliminary Blood - Venous No growth after 48 hours. Assessment and Plan (1) Acute UTI: Status: Acute (2) Hypertension: Status: Acute (3) Pyelonephritis of right kidney: Status: Acute Plan hospital day:3 76-year-old female with past medical history of recurrent UTIs presents to the hospital with urinary symptoms as well as right CVA tenderness ? acute? UTI/Pyelonephritis, failed outpatient therapy -continue IV ceftriaxone. Culture 04/23 = E.coli sensitive to Ceftriaxone -Dilaudid for pain, -Uro consult noted Id latanya added . ? hypertension-chnaged metoprolol to coreg from better blood pressure control. ? hypothyroidism -? continue levothyroxine Lovenox for DVT P Need: UTI/Pyelo that failied PO and needs IV Abx. Time Spent With Patient Time: Total time managing care of this patient today ____ minutes. Quality Stroke Does the patient have a stroke diagnosis?: No VTE Prior VTE?: No VTE Risk Level:: Medical - moderate - high VTE Device Contraindication: Treatment Not Indicated VTE Drug Contraindication: N/A - Med Ordered
--- NOTE | 2022-04-27 11:14 | MHC.CM.PN ---
PT NOT YET MEDICALLY CLEARED DCP: RETURN TO ILF WITH VS WITHOUT VNA
[2022-04-27] MEDS: Acetaminophen 325 MG TABLET 650 MG PO ×2 (11:42→17:42)
[2022-04-27] MEDS: oxyCODONE HCl Immed Release 5 MG TABLET PO ×2 (11:42→17:42)
[2022-04-27 11:54] LABS: Glucose, Whole Blood 184 mg/dL (60-115)
[2022-04-27] MEDS: Insulin Lispro 100 UNIT/ML 3 ML VIAL SUBCUT ×2 (11:58→21:19)
[2022-04-27 15:53] VITALS: BP 114/56; PULSE 61; RESP 14; TEMP 36.3; O2SAT 94
--- NOTE | 2022-04-27 16:05 | W.PM.IDCN ---
History of Present Illness Data of Consult Service Date: 04/27/22 Requesting physician: Christa Matos Primary Care Provider: DO MEHRDAD Ashton Reason for consult: pyelonephritis She presents with RLQ discomfort and pain. The discomfort started one week ago. She was given Macrobid and no improvement. She has E coli She reports being seen at [facility] in past. Review of Systems Review of Systems: Yes all other systems are reviewed and are negative PMFSH Past Medical History Medical History Chronic kidney disease Hematuria Hx: UTI (urinary tract infection) Incomplete emptying of bladder Pyuria Urethral caruncle Family History Family history: reviewed and not pertinent Surgical History Surgical History History of total hysterectomy Social History Social History Household Members: None Housing: Assisted Living Facility Do you presently have visiting nurse or other home services: Yes Alcohol intake: never Patient Tobacco Use Status: Never used Tobacco service: No Current occupational status: retired Meds Allergies Allergy/AdvReac Type Severity Reaction Status Date / Time droperidol [From INAPSINE] Allergy Severe HYPERACTIVE Verified 12/10/21 08:49 Cephalosporins Allergy Intermediate RASH,GI Verified 12/10/21 08:49 [CEPHALOSPORINS] UPSET doxycycline [DOXYCYCLINE] Allergy Intermediate N/V/DIARRHE Verified 12/10/21 08:49 A latex [LATEX] Allergy Intermediate RASH Verified 12/10/21 08:49 amlodipine Allergy Unknown Unknown Verified 12/10/21 08:49 cephalexin [Keflex] Allergy Unknown Unknown Verified 12/10/21 08:49 ciprofloxacin [Cipro] Allergy Unknown Unknown Verified 12/10/21 08:49 levofloxacin [Levaquin] Allergy Unknown Unknown Verified 12/10/21 08:49 Sulfa (Sulfonamide Allergy Unknown Unknown Verified 12/10/21 08:49 Antibiotics) sulfamethoxazole AdvReac Mild GI UPSET Verified 12/10/21 08:49 [From BACTRIM] trimethoprim [From BACTRIM] AdvReac Mild GI UPSET Verified 12/10/21 08:49 From KEFLEX Allergy Intermediate LEG RASH Uncoded 06/03/21 14:19 hipacleanse Allergy Unknown Unknown Uncoded 06/03/21 14:19 Latex Exam Gloves Allergy Unknown Unknown Uncoded 06/03/21 14:19 Active Medications: Current Medications Acetaminophen (Acetaminophen 325 Mg Tablet) 650 mg PO Q6H PRN PRN Reason: Pain, Mild (Pain Scale 1-3) Last Admin: 04/27/22 11:42 Dose: 650 mg Atorvastatin Calcium (Atorvastatin Calcium 80 Mg Tablet) 80 mg PO DAILY [facility] Last Admin: 04/27/22 09:00 Dose: 80 mg Carvedilol (Carvedilol 6.25 Mg Tablet) 6.25 mg PO BID [facility]; Protocol Last Admin: 04/27/22 09:00 Dose: 6.25 mg Dextrose (Dextrose 50 % 25 Gm/50 Ml Syringe) 25 gm IVPUSH Q15M PRN; Protocol PRN Reason: per Hypoglycemia Standing Ord. Dicyclomine HCl (Dicyclomine Hcl 10 Mg Capsule) 20 mg PO TID [facility] Last Admin: 04/27/22 14:13 Dose: 20 mg Diphenhydramine HCl (Diphenhydramine Hcl 25 Mg Capsule) 25 mg PO Q4H PRN PRN Reason: Itching Docusate Sodium (Docusate Sodium 100 Mg Capsule) 100 mg PO DAILY PRN PRN Reason: Constipation Last Admin: 04/25/22 19:29 Dose: 100 mg Enoxaparin Sodium (Enoxaparin Sodium 40 Mg/0.4 Ml Syringe) 40 mg SUBCUT Q12H [facility] Last Admin: 04/27/22 14:13 Dose: 40 mg Fluoxetine HCl (Fluoxetine Hcl 20 Mg Capsule) 40 mg PO DAILY [facility] Last Admin: 04/27/22 09:00 Dose: 40 mg Glucose (Glucose Gel 15 Gm Gel..Gram.) 15 gm PO Q15M PRN; Protocol PRN Reason: per Hypoglycemia Standing Ord. Hydromorphone HCl (Hydromorphone Hcl 0.5 Mg/0.5 Ml Syringe) 0.5 mg IVPUSH Q4H PRN; Protocol PRN Reason: Pain, Severe (Pain Scale 7-10) Last Admin: 04/27/22 14:12 Dose: 0.5 mg Ceftriaxone Sodium 1 gm/ (Sodium Chloride) 50 mls @ 100 mls/hr IV Q24H [facility] Last Infusion: 04/27/22 09:49 Dose: Infused Insulin Glargine (Insulin Glargine,Hum.Rec.Anlog 100 Unit/Ml 10 Ml Vial) 20 unit SUBCUT BEDTIME [facility] Last Admin: 04/26/22 20:52 Dose: 20 unit Insulin Human Lispro (Insulin Lispro 100 Unit/Ml 3 Ml Vial) 0 unit SUBCUT QIDACHS [facility]; Protocol Last Admin: 04/27/22 11:58 Dose: 2 unit Levothyroxine Sodium (Levothyroxine Sodium 100 Mcg Tablet) 100 mcg PO MoTuWeThFrSa@0600 [facility] Last Admin: 04/26/22 05:00 Dose: 100 mcg Mirabegron (Mirabegron 50 Mg Tab.Er.24h) 50 mg PO DAILY [facility] Last Admin: 04/27/22 09:00 Dose: 50 mg Omeprazole (Omeprazole 20 Mg Capsule.Dr) 20 mg PO DAILY@0600 [facility] Last Admin: 04/27/22 04:33 Dose: 20 mg Ondansetron HCl (Ondansetron Hcl 4 Mg/2 Ml Vial) 4 mg IVPUSH Q8H PRN PRN Reason: Nausea and Vomiting Oxycodone HCl (Oxycodone Hcl Immed Release 5 Mg Tablet) 5 mg PO Q4H PRN PRN Reason: Pain, Severe (Pain Scale 7-10) Last Admin: 04/27/22 11:42 Dose: 5 mg Sodium Chloride (0.9 % Sodium Chloride Flush 3 Ml Syringe) 3 ml IVFLUSH [facility] Last Admin: 04/27/22 09:03 Dose: 3 ml Home Medications Medication Instructions Recorded Confirmed Last Taken Type atorvastatin 80 mg tablet 80 mg PO DAILY 04/17/20 04/24/22 04/23/22 History dicyclomine 10 mg capsule 20 mg PO TID 04/17/20 04/24/22 04/23/22 History fluoxetine 40 mg capsule 40 mg PO DAILY 04/17/20 04/24/22 04/23/22 History insulin glargine 100 unit/mL (3 20 unit subcut BEDTIME 04/17/20 04/24/22 04/21/22 History mL) subcutaneous pen levothyroxine 100 mcg tablet 100 mcg PO [id number] 04/17/20 04/24/22 04/23/22 History metoprolol succinate 25 mg 25 mg PO DAILY 04/17/20 04/24/22 04/23/22 History tablet,extended release 24 hr pantoprazole 40 mg tablet,delayed 40 mg PO DAILY 05/30/20 04/24/22 04/23/22 History release pen needle, diabetic 31 gauge x #1,200 ea 04/03/21 12/10/21 Unknown History 5/16 (BD Ultra-Fine Short Pen Needle) acetaminophen 325 mg tablet 650 mg PO Q6H PRN Pain 04/24/22 04/24/22 Unknown History insulin lispro 100 unit/mL 0 sliding scale dose subcut QIDACHS 04/24/22 04/24/22 Unknown History subcutaneous pen (Humalog KwikPen (U-100) Insulin) Physical Exam Vital Signs: Vital Signs: Last Vital Signs Temp 97.3 F 04/27/22 15:53 Pulse 61 04/27/22 15:53 Resp 14 04/27/22 15:53 BP 114/56 L 04/27/22 15:53 Pulse Ox 94 04/27/22 15:53 O2 Del Method 04/27/22 15:53 BMI result Body Mass Index 27.4 Const: General: cooperative HEENT: Head: Yes normal to inspection Face and sinus: Yes normal facial exam Mouth: Normal oral and palatal mucosa present Teeth and gingiva: dentition normal Eyes: General: appearance normal, both eyes and all related structures Pupils: Equal, round and reactive pupils present Resp: Effort & Inspection: normal respiratory effort Cardio: Rate: regular rate Rhythm: regular rhythm GI: Palpation (GI): Soft to palpation and nontender : General: Yes no CVA tenderness Back/Spine/Pelvis: Back: no CVA tenderness Skin: General skin exam: no rashes or lesions noted Neuro: General: moves all extremities Cranial nerves: Yes Equal, round and reactive pupils present Extrem: General: Yes normal to inspection Psych: Appearance: grossly normal Results Labs 04/24/22 06:55 04/24/22 06:55 Microbiology Microbiology Results: Microbiology 04/24/22 06:55 Blood - Venous Blood Culture - Preliminary No growth after 48 hours. 04/24/22 00:26 Blood - Venous Blood Culture - Preliminary No growth after 48 hours. 04/23/22 Unknown Urine clean catch - Urine lopez top Urine Culture - Final Escherichia coli Assessment and Plan (1) Pyuria: Status: Acute (2) Pyelonephritis of right kidney: Status: Acute She has E coli sensitive to Ceftriaxone. She has been on methenamine prevention which no longer works and macrodantin,vaginal estrogen and still develops UTI (3) Acute bacterial pyelonephritis: Status: Acute Plan Would continue Ceftriaxone and then switch to po Ceftin 500 mg bid total 14 days. Since she reports prior Cdiff po Vancomycin 125 qid while on antibiotics and for fortyeight hours after Time Spent With Patient Time: Total time managing care of this patient today ____ minutes.
[2022-04-27 16:53] LABS: Glucose, Whole Blood 141 mg/dL (60-115)
[2022-04-27 19:53] VITALS: BP 120/62; PULSE 60; RESP 17; TEMP 36.2; O2SAT 97
[2022-04-27 20:52] LABS: Glucose, Whole Blood 241 mg/dL (60-115)
[2022-04-27] MEDS: Insulin Glargine,Hum.rec.anlog 100 UNIT/ML 10 ML VIAL 20 UNIT SUBCUT (21:19)
[2022-04-28] MEDS: HYDROmorphone HCl 0.5 MG/0.5 ML SYRINGE IVPUSH ×5 (01:37→23:30)
[2022-04-28] MEDS: Enoxaparin Sodium 40 MG/0.4 ML SYRINGE SUBCUT ×2 (01:37→13:35)
[2022-04-28 03:13] VITALS: BP 146/67; PULSE 60; RESP 16; TEMP 36.6; O2SAT 96
[2022-04-28 04:37] LABS: Glucose, Whole Blood 128 mg/dL (60-115)
[2022-04-28] MEDS: Levothyroxine Sodium 100 MCG TABLET PO (05:41)
[2022-04-28] MEDS: Omeprazole 20 MG CAPSULE.DR PO (05:41)
[2022-04-28 07:40] VITALS: BP 175/75; PULSE 74; RESP 18; TEMP 36.1; O2SAT 96
[2022-04-28 07:59] LABS: Glucose, Whole Blood 293 mg/dL (60-115)
[2022-04-28] MEDS: carvediloL 6.25 MG TABLET PO ×2 (08:21→22:01)
[2022-04-28] MEDS: Mirabegron 50 MG TAB.ER.24H PO (08:21)
[2022-04-28] MEDS: Atorvastatin Calcium 80 MG TABLET PO (08:21)
[2022-04-28] MEDS: Dicyclomine HCl 10 MG CAPSULE 20 MG PO ×3 (08:21→22:01)
[2022-04-28] MEDS: FLUoxetine HCl 20 MG CAPSULE 40 MG PO (08:21)
[2022-04-28] MEDS: Insulin Lispro 100 UNIT/ML 3 ML VIAL SUBCUT ×4 (08:22→22:02)
[2022-04-28] MEDS: 0.9 % Sodium Chloride Flush 3 ML SYRINGE IVFLUSH ×3 (08:22→19:08)
[2022-04-28] MEDS: vancomycin HCL 125 MG CAPSULE PO ×3 (08:29→19:07)
[2022-04-28] MEDS: cefTRIAXone sodium 1 GM in 0.9 % Sodium Chloride 50 ML IV (08:29)
[2022-04-28 11:34] LABS: Glucose, Whole Blood 219 mg/dL (60-115)
[2022-04-28] MEDS: oxyCODONE HCl Immed Release 5 MG TABLET PO ×3 (11:43→22:01)
[2022-04-28] MEDS: Acetaminophen 325 MG TABLET 650 MG PO (11:43)
--- NOTE | 2022-04-28 11:50 | P.PNIM_ITS ---
Subjective Subjective Date of Service: 04/28/22 Interval History: Follow-up in by nephritis and diarrhea Patient reports abdominal pain and diarrhea since yesterday No reported fever Back pain and dysuria improving Review of Systems Improving dusuria and pain no fevers denies any nausea or vomitin But reported abdominal pain diarrhea Physical Exam Vital Signs: Vital Signs: Last Vital Signs Temp 96.9 F 04/28/22 07:40 Pulse 74 04/28/22 07:40 Resp 18 04/28/22 07:40 BP 175/75 H 04/28/22 07:40 Pulse Ox 96 04/28/22 07:40 O2 Del Method 04/28/22 07:40 BMI result Body Mass Index 27.4 Const: Other: General: AO X 3, no acute distress Resp: CTA bilateral CVS: S1,S2,RRR GI: +BS, left lower quadrant tenderness, no distention Skin: No rash Neuro: motor grossly intact Psych: appropriate affect Objective Data Active Medications Acetaminophen (Acetaminophen 325 Mg Tablet) 650 mg PO Q6H PRN PRN Reason: Pain, Mild (Pain Scale 1-3) Last Admin: 04/28/22 11:43 Dose: 650 mg Documented By: PANCHITO Atorvastatin Calcium (Atorvastatin Calcium 80 Mg Tablet) 80 mg PO DAILY [facility] Last Admin: 04/28/22 08:21 Dose: 80 mg Documented By: PANCHITO Carvedilol (Carvedilol 6.25 Mg Tablet) 6.25 mg PO BID [facility]; Protocol Last Admin: 04/28/22 08:21 Dose: 6.25 mg Documented By: PANCHITO Dextrose (Dextrose 50 % 25 Gm/50 Ml Syringe) 25 gm IVPUSH Q15M PRN; Protocol PRN Reason: per Hypoglycemia Standing Ord. Dicyclomine HCl (Dicyclomine Hcl 10 Mg Capsule) 20 mg PO TID [facility] Last Admin: 04/28/22 08:21 Dose: 20 mg Documented By: PANCHITO Diphenhydramine HCl (Diphenhydramine Hcl 25 Mg Capsule) 25 mg PO Q4H PRN PRN Reason: Itching Docusate Sodium (Docusate Sodium 100 Mg Capsule) 100 mg PO DAILY PRN PRN Reason: Constipation Last Admin: 04/25/22 19:29 Dose: 100 mg Documented By: JOHNNYORALB Enoxaparin Sodium (Enoxaparin Sodium 40 Mg/0.4 Ml Syringe) 40 mg SUBCUT Q12H [facility] Last Admin: 04/28/22 01:37 Dose: 40 mg Documented By: BRANDEN Fluoxetine HCl (Fluoxetine Hcl 20 Mg Capsule) 40 mg PO DAILY [facility] Last Admin: 04/28/22 08:21 Dose: 40 mg Documented By: PANCHITO Glucose (Glucose Gel 15 Gm Gel..Gram.) 15 gm PO Q15M PRN; Protocol PRN Reason: per Hypoglycemia Standing Ord. Hydromorphone HCl (Hydromorphone Hcl 0.5 Mg/0.5 Ml Syringe) 0.5 mg IVPUSH Q4H PRN; Protocol PRN Reason: Pain, Severe (Pain Scale 7-10) Last Admin: 04/28/22 09:25 Dose: 0.5 mg Documented By: YANDY Ceftriaxone Sodium 1 gm/ (Sodium Chloride) 50 mls @ 100 mls/hr IV Q24H [facility] Last Infusion: 04/28/22 09:18 Dose: 0 mls/hr Documented By: YANDY Insulin Glargine (Insulin Glargine,Hum.Rec.Anlog 100 Unit/Ml 10 Ml Vial) 20 unit SUBCUT BEDTIME [facility] Last Admin: 04/27/22 21:19 Dose: 20 unit Documented By: BRANDEN Insulin Human Lispro (Insulin Lispro 100 Unit/Ml 3 Ml Vial) 0 unit SUBCUT QIDACHS [facility]; Protocol Last Admin: 04/28/22 11:42 Dose: 4 unit Documented By: PANCHITO Levothyroxine Sodium (Levothyroxine Sodium 100 Mcg Tablet) 100 mcg PO MoTuWeThFrSa@0600 [facility] Last Admin: 04/28/22 05:41 Dose: 100 mcg Documented By: BRANDEN Mirabegron (Mirabegron 50 Mg Tab.Er.24h) 50 mg PO DAILY [facility] Last Admin: 04/28/22 08:21 Dose: 50 mg Documented By: PANCHITO Omeprazole (Omeprazole 20 Mg Capsule.Dr) 20 mg PO DAILY@0600 [facility] Last Admin: 04/28/22 05:41 Dose: 20 mg Documented By: BRANDEN Ondansetron HCl (Ondansetron Hcl 4 Mg/2 Ml Vial) 4 mg IVPUSH Q8H PRN PRN Reason: Nausea and Vomiting Oxycodone HCl (Oxycodone Hcl Immed Release 5 Mg Tablet) 5 mg PO Q4H PRN PRN Reason: Pain, Severe (Pain Scale 7-10) Last Admin: 04/28/22 11:43 Dose: 5 mg Documented By: PANCHITO Sodium Chloride (0.9 % Sodium Chloride Flush 3 Ml Syringe) 3 ml IVFLUSH QSHIFT [facility] Last Admin: 04/28/22 08:22 Dose: 3 ml Documented By: PANCHITO Vancomycin HCl (Vancomycin Hcl 125 Mg Capsule) 125 mg PO Q6H [facility] Last Admin: 04/28/22 08:29 Dose: 125 mg Documented By: PANCHITO Labs 04/24/22 06:55 04/24/22 06:55 Labs: Laboratory Results - last 24 hr 04/27/22 04/27/22 04/27/22 11:50 16:40 20:35 POC Glucose 184 H 141 H 241 H 04/28/22 04/28/22 04/28/22 04:33 07:32 11:27 POC Glucose 128 H 293 H 219 H Assessment and Plan (1) Pyelonephritis of right kidney: Status: Acute Plan hospital day:3 76-year-old female with past medical history of recurrent UTIs presents to the hospital with urinary symptoms as well as right CVA tenderness ? acute? UTI/Pyelonephritis, failed outpatient therapy continue IV ceftriaxone. Then Ceftin for 14 days Culture 04/23 = E.coli sensitive to Ceftriaxone Dilaudid for pain, Uro consult noted Hx?C diff infection Patient on Antibiotics, reporting diarrhea and LLQ pain Cover empirically with vancomycin p.o. for 14 days Id input appreciated hypertension chnaged metoprolol to coreg from better blood pressure control. ? hypothyroidism continue levothyroxine Lovenox for DVT P Need: UTI/Pyelo that failied PO and needs IV Abx. C diff infection. Time Spent With Patient Time: Total time managing care of this patient today ____ minutes. Quality Stroke Does the patient have a stroke diagnosis?: No VTE Prior VTE?: No VTE Risk Level:: Medical - moderate - high VTE Device Contraindication: Treatment Not Indicated VTE Drug Contraindication: N/A - Med Ordered
--- NOTE | 2022-04-28 13:24 | P.CDIM_ITS ---
PROVIDER RESPONSE TEXT: To clarify, the appropriate diagnosis supported by the clinical indicators: CKD, please provide stage: Stage 3 QUERY TEXT: PHYSICIAN'S DOCUMENTATION REQUEST Date of Query: 04/28/2022 12:06 PM EST Patient Name: Francisca Yoon Admit Date: 04/24/2022 Dear Alina Wilson, A review of the medical record indicates additional documentation may be needed. Please review below and update the documentation accordingly. Clinical Indicators: H&P 04/24 - PMH: Chronic kidney disease PN 04/27 - PMH: CKD Bun 19 20 CR: 0.96 1.14 GFR: 57 46 Please clarify which of the following accurately represents the patient's renal status: CKD, please provide stage Stage 1-5 if known Other (explain) Clinically unable to determine (explain) Thank you, Soledad Dobbins, CCS, CDIS Use of terms such as suspected, likely, concern for, or probable (associated with a specific diagnosi s that is being evaluated, monitored, or treated as if it exists) are acceptable and can be coded in the inpatient se tting, when documented at the time of discharge. Please use your independent medical judgment in providing your response. THIS QUERY IS PART OF THE PERMANENT MEDICAL RECORD
[2022-04-28 15:46] VITALS: BP 124/59; PULSE 67; RESP 18; TEMP 36.4; O2SAT 95
[2022-04-28 16:45] LABS: Glucose, Whole Blood 169 mg/dL (60-115)
[2022-04-28 19:45] VITALS: BP 165/74; PULSE 70; RESP 18; TEMP 36.7; O2SAT 95
[2022-04-28 21:24] LABS: Glucose, Whole Blood 256 mg/dL (60-115)
[2022-04-28] MEDS: Insulin Glargine,Hum.rec.anlog 100 UNIT/ML 10 ML VIAL 20 UNIT SUBCUT (22:03)
[2022-04-29] MEDS: Enoxaparin Sodium 40 MG/0.4 ML SYRINGE SUBCUT ×2 (01:43→14:38)
[2022-04-29] MEDS: vancomycin HCL 125 MG CAPSULE PO ×4 (01:44→20:20)
[2022-04-29] MEDS: diphenhydrAMINE HCL 25 MG CAPSULE PO ×2 (01:44→22:10)
[2022-04-29 04:00] VITALS: BP 142/60; PULSE 70; RESP 17; TEMP 36.8; O2SAT 97
[2022-04-29] MEDS: HYDROmorphone HCl 0.5 MG/0.5 ML SYRINGE IVPUSH ×4 (04:01→22:10)
[2022-04-29] MEDS: Levothyroxine Sodium 100 MCG TABLET PO (05:09)
[2022-04-29] MEDS: Omeprazole 20 MG CAPSULE.DR PO (05:09)
[2022-04-29 06:48] LABS: Hematocrit 30.6 % (37.0-47.0); Hemoglobin 9.8 g/dl (12.0-16.0); Mean Corpuscular Hemoglobin 25.7 pg (27.0-33.0); Mean Corpuscular Volume 80.3 fL (80.0-98.0); NRBC Pct Auto 0.4 /100WBC (0.0-0.2); Red Blood Count 3.81 X10*6/uL (4.20-5.50); Red Cell Distribution Width 17.7 % (11.0-16.0)
[2022-04-29 07:31] LABS: Anion Gap 15 (12-20); Blood Urea Nitrogen 15 mg/dL (9-16); Calcium 7.8 mg/dL (8.4-10.2); Carbon Dioxide 24 mmol/L (22-29); Chloride 107 mmol/L (96-108); Creatinine Clr Calc Pharmacy 57.9; Estimated Glomerular Filt Rate > 60; Glucose Random 164 mg/dL (60-115); Potassium 4.6 mmol/L (3.3-5.1); Sodium 141 mmol/L (135-145)
[2022-04-29 07:33] LABS: Glucose, Whole Blood 139 mg/dL (60-115)
[2022-04-29 07:48] VITALS: BP 188/90; PULSE 68; RESP 18; TEMP 36.5; O2SAT 95
[2022-04-29 08:15] LABS: Mean Platelet Volume 10.7 fL (9.4-12.3); Platelet Count 131 X10*3/uL (160-400)
[2022-04-29] MEDS: carvediloL 6.25 MG TABLET PO ×2 (09:34→20:20)
[2022-04-29] MEDS: Mirabegron 50 MG TAB.ER.24H PO (09:34)
[2022-04-29] MEDS: Atorvastatin Calcium 80 MG TABLET PO (09:34)
[2022-04-29] MEDS: cefTRIAXone sodium 1 GM in 0.9 % Sodium Chloride 50 ML IV (09:34)
[2022-04-29] MEDS: Dicyclomine HCl 10 MG CAPSULE 20 MG PO ×3 (09:34→20:20)
[2022-04-29] MEDS: FLUoxetine HCl 20 MG CAPSULE 40 MG PO (09:34)
[2022-04-29] MEDS: 0.9 % Sodium Chloride Flush 3 ML SYRINGE IVFLUSH ×3 (09:35→20:21)
--- NOTE | 2022-04-29 10:23 | MHC.CM.PN ---
Per ROUNDS discussion, Patient is still acute and not yet medically cleared for dc. Home is the goal and CM will continue to follow.
--- NOTE | 2022-04-29 10:45 | HO.PM.IMPN ---
Subjective Subjective Date of Service: 04/29/22 Interval History: cc: flank pain interval history:ongoing loose stools, discomfort Physical Exam Vital Signs: Vital Signs: Last Vital Signs Temp 97.7 F 04/29/22 07:48 Pulse 68 04/29/22 07:48 Resp 18 04/29/22 07:48 BP 188/90 H 04/29/22 07:48 Pulse Ox 95 04/29/22 07:48 O2 Del Method 04/29/22 07:48 BMI result Body Mass Index 27.4 General: AO X 3, no acute distress Resp: CTA bilateral, no accessory muscles used CVS: S1,S2,RRR GI: soft, non tender, non distended Neuro: motor grossly intact, alert Psych: appropriate affect, appropriate insight Objective Data Active Medications Acetaminophen (Acetaminophen 325 Mg Tablet) 650 mg PO Q6H PRN PRN Reason: Pain, Mild (Pain Scale 1-3) Last Admin: 04/28/22 11:43 Dose: 650 mg Documented By: PANCHITO Atorvastatin Calcium (Atorvastatin Calcium 80 Mg Tablet) 80 mg PO DAILY [facility] Last Admin: 04/29/22 09:34 Dose: 80 mg Documented By: SOFIA Carvedilol (Carvedilol 6.25 Mg Tablet) 6.25 mg PO BID [facility]ARA; Protocol Last Admin: 04/29/22 09:34 Dose: 6.25 mg Documented By: SOFIA Dextrose (Dextrose 50 % 25 Gm/50 Ml Syringe) 25 gm IVPUSH Q15M PRN; Protocol PRN Reason: per Hypoglycemia Standing Ord. Dicyclomine HCl (Dicyclomine Hcl 10 Mg Capsule) 20 mg PO TID [facility]ARA Last Admin: 04/29/22 09:34 Dose: 20 mg Documented By: SOFIA Diphenhydramine HCl (Diphenhydramine Hcl 25 Mg Capsule) 25 mg PO Q4H PRN PRN Reason: Itching Last Admin: 04/29/22 01:44 Dose: 25 mg Documented By: DOMINIQUE Docusate Sodium (Docusate Sodium 100 Mg Capsule) 100 mg PO DAILY PRN PRN Reason: Constipation Last Admin: 04/25/22 19:29 Dose: 100 mg Documented By: DOMINIQUE Enoxaparin Sodium (Enoxaparin Sodium 40 Mg/0.4 Ml Syringe) 40 mg SUBCUT Q12H [facility] Last Admin: 04/29/22 01:43 Dose: 40 mg Documented By: DOMINIQUE Fluoxetine HCl (Fluoxetine Hcl 20 Mg Capsule) 40 mg PO DAILY [facility] Last Admin: 04/29/22 09:34 Dose: 40 mg Documented By: SOFIA Glucose (Glucose Gel 15 Gm Gel..Gram.) 15 gm PO Q15M PRN; Protocol PRN Reason: per Hypoglycemia Standing Ord. Hydromorphone HCl (Hydromorphone Hcl 0.5 Mg/0.5 Ml Syringe) 0.5 mg IVPUSH Q4H PRN; Protocol PRN Reason: Pain, Severe (Pain Scale 7-10) Last Admin: 04/29/22 09:55 Dose: 0.5 mg Documented By: SOFIA Ceftriaxone Sodium 1 gm/ (Sodium Chloride) 50 mls @ 100 mls/hr IV Q24H [facility] Last Infusion: 04/29/22 10:18 Dose: 0 mls/hr Documented By: SOFIA Insulin Glargine (Insulin Glargine,Hum.Rec.Anlog 100 Unit/Ml 10 Ml Vial) 20 unit SUBCUT BEDTIME [facility] Last Admin: 04/28/22 22:03 Dose: 20 unit Documented By: DOMINIQUE Insulin Human Lispro (Insulin Lispro 100 Unit/Ml 3 Ml Vial) 0 unit SUBCUT QIDACHS [facility]; Protocol Last Admin: 04/29/22 08:14 Dose: Not Given Documented By: SOFIA Non-Admin Reason: No Insulin Coverage Levothyroxine Sodium (Levothyroxine Sodium 100 Mcg Tablet) 100 mcg PO MoTuWeThFrSa@0600 [facility] Last Admin: 04/29/22 05:09 Dose: 100 mcg Documented By: DOMINIQUE Mirabegron (Mirabegron 50 Mg Tab.Er.24h) 50 mg PO DAILY [facility] Last Admin: 04/29/22 09:34 Dose: 50 mg Documented By: SOFIA Omeprazole (Omeprazole 20 Mg Capsule.Dr) 20 mg PO DAILY@0600 [facility] Last Admin: 04/29/22 05:09 Dose: 20 mg Documented By: DOMINIQUE Ondansetron HCl (Ondansetron Hcl 4 Mg/2 Ml Vial) 4 mg IVPUSH Q8H PRN PRN Reason: Nausea and Vomiting Sodium Chloride (0.9 % Sodium Chloride Flush 3 Ml Syringe) 3 ml IVFLUSH QSHIFT [facility] Last Admin: 04/29/22 09:35 Dose: 3 ml Documented By: SOFIA Vancomycin HCl (Vancomycin Hcl 125 Mg Capsule) 125 mg PO Q6H [facility] Last Admin: 04/29/22 09:34 Dose: 125 mg Documented By: SOFIA Labs 04/29/22 06:07 04/29/22 06:07 Labs: Laboratory Results - last 24 hr 04/28/22 04/28/22 04/28/22 11:27 16:36 21:09 MCV MCH MCHC RDW Plt Count MPV Absolute Nucleated RBC Nucleated RBC % (auto) Anion Gap Estim Creat Clear Calc Estimated GFR POC Glucose 219 H 169 H 256 H Random Glucose Calcium 04/29/22 04/29/22 04/29/22 06:07 06:07 07:20 MCV 80.3 MCH 25.7 L MCHC 32.0 RDW 17.7 H Plt Count 131 L D MPV 10.7 Absolute Nucleated RBC 0.020 H Nucleated RBC % (auto) 0.4 H Anion Gap 15 Estim Creat Clear Calc 57.9 Estimated GFR > 60 POC Glucose 139 H Random Glucose 164 H Calcium 7.8 L Microbiology Microbiology Results: Microbiology 04/24/22 06:55 Blood Culture - Final Blood - Venous No growth after 5 days. 04/24/22 00:26 Blood Culture - Final Blood - Venous No growth after 5 days. Assessment and Plan (1) Pyelonephritis of right kidney: Status: Acute Plan 76F PMH DM, HTN, hypothyroid, mood disorder, presented with flank pain, dysuria acute? 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 while on abx and then 48hrs after hypertension changed metoprolol to coreg from better blood pressure control. ? hypothyroidism continue levothyroxine Lovenox for DVT Prophylaxis full code reason for continued hospitalization:diarrhea Time Spent With Patient Time: Total time managing care of this patient today ____ minutes. Quality Stroke Does the patient have a stroke diagnosis?: No VTE Prior VTE?: No VTE Risk Level:: Medical - moderate - high VTE Device Contraindication: Treatment Not Indicated VTE Drug Contraindication: N/A - Med Ordered
[2022-04-29 11:35] LABS: Glucose, Whole Blood 228 mg/dL (60-115)
[2022-04-29] MEDS: Insulin Lispro 100 UNIT/ML 3 ML VIAL SUBCUT ×3 (12:04→22:09)
[2022-04-29 16:13] VITALS: BP 158/74; PULSE 70; RESP 18; TEMP 36.5; O2SAT 95
--- NOTE | 2022-04-29 16:36 | PM.IDPN ---
Subjective Subjective Date of Service: 04/29/22 Critical Care Time (minutes): 15 Comment: she has intermittent loose stools,but really more pellet shaped she says Objective Data Labs 04/29/22 06:07 04/29/22 06:07 Labs: Laboratory Results - last 24 hr 04/28/22 04/28/22 04/29/22 16:36 21:09 06:07 WBC 5.0 RBC 3.81 L Hgb 9.8 L Hct 30.6 L MCV 80.3 MCH 25.7 L MCHC 32.0 RDW 17.7 H Plt Count 131 L D MPV 10.7 Absolute Nucleated RBC 0.020 H Nucleated RBC % (auto) 0.4 H Sodium Potassium Chloride Carbon Dioxide Anion Gap BUN Creatinine Estim Creat Clear Calc Estimated GFR POC Glucose 169 H 256 H Random Glucose Calcium 04/29/22 04/29/22 04/29/22 06:07 07:20 11:30 WBC RBC Hgb Hct MCV MCH MCHC RDW Plt Count MPV Absolute Nucleated RBC Nucleated RBC % (auto) Sodium 141 Potassium 4.6 Chloride 107 Carbon Dioxide 24 Anion Gap 15 BUN 15 Creatinine 0.85 Estim Creat Clear Calc 57.9 Estimated GFR > 60 POC Glucose 139 H 228 H Random Glucose 164 H Calcium 7.8 L Microbiology Microbiology Results: Microbiology 04/24/22 06:55 Blood - Venous Blood Culture - Final No growth after 5 days. 04/24/22 00:26 Blood - Venous Blood Culture - Final No growth after 5 days. 04/23/22 Unknown Urine clean catch - Urine lopez top Urine Culture - Final Escherichia coli Physical Exam Vital Signs: Vital Signs: Last Vital Signs Temp 97.7 F 04/29/22 16:13 Pulse 70 04/29/22 16:13 Resp 18 04/29/22 16:13 BP 158/74 H 04/29/22 16:13 Pulse Ox 95 04/29/22 16:13 O2 Del Method 04/29/22 16:13 BMI result Body Mass Index 27.4 Const: General: cooperative HEENT: Head: Yes normal to inspection Resp: Effort & Inspection: normal respiratory effort Cardio: Rate: regular rate Rhythm: regular rhythm GI: Palpation (GI): Soft to palpation and Tenderness to palpation present (GI) (slt discomfort RLQ) Assessment and Plan Assessment and plan (1) Pyuria: Problem details: She has some pellet shaped stools right pyelonephritis concern Status: Acute (2) Pyelonephritis of right kidney: Status: Acute Plan Would continue Ceftriaxone and then po Ceftin for total 10 d po Vancomycin qid through course of antibiotics and then tid for a week,bid for a week,daily for a week and then 125 mg every ,,Wednesday for eight to twelve week total will prophylax ,no need check stool now for Cdiff Time Spent With Patient Time: Total time managing care of this patient today ____ minutes.
[2022-04-29 16:44] LABS: Glucose, Whole Blood 172 mg/dL (60-115)
[2022-04-29 19:44] VITALS: BP 130/73; PULSE 73; RESP 18; TEMP 36.4; O2SAT 97
[2022-04-29 20:55] LABS: Glucose, Whole Blood 220 mg/dL (60-115)
[2022-04-29] MEDS: Insulin Glargine,Hum.rec.anlog 100 UNIT/ML 10 ML VIAL 20 UNIT SUBCUT (22:09)
[2022-04-30] MEDS: vancomycin HCL 125 MG CAPSULE PO ×4 (02:16→20:45)
[2022-04-30] MEDS: Enoxaparin Sodium 40 MG/0.4 ML SYRINGE SUBCUT ×2 (02:16→14:42)
[2022-04-30] MEDS: HYDROmorphone HCl 0.5 MG/0.5 ML SYRINGE IVPUSH ×5 (02:17→21:08)
[2022-04-30] MEDS: Acetaminophen 325 MG TABLET 650 MG PO ×2 (03:34→14:42)
[2022-04-30 04:00] VITALS: BP 170/80; PULSE 70; RESP 18; TEMP 36.4; O2SAT 95
[2022-04-30] MEDS: Levothyroxine Sodium 100 MCG TABLET PO (05:01)
[2022-04-30] MEDS: Omeprazole 20 MG CAPSULE.DR PO (05:01)
[2022-04-30 06:46] LABS: Hematocrit 31.9 % (37.0-47.0); Hemoglobin 10.1 g/dl (12.0-16.0); Mean Corpuscular HGB Conc 31.7 g/dl (31.0-35.0); Mean Corpuscular Hemoglobin 25.1 pg (27.0-33.0); Mean Corpuscular Volume 79.4 fL (80.0-98.0); Mean Platelet Volume 10.1 fL (9.4-12.3); Platelet Count 158 X10*3/uL (160-400); Red Blood Count 4.02 X10*6/uL (4.20-5.50); Red Cell Distribution Width 17.6 % (11.0-16.0); White Blood Count 5.5 X10*3/uL (4.8-10.8)
[2022-04-30 07:19] VITALS: BP 149/69; PULSE 63; RESP 16; TEMP 37.1; O2SAT 94
[2022-04-30 07:22] LABS: Anion Gap 13 (12-20); Blood Urea Nitrogen 15 mg/dL (9-16); Carbon Dioxide 25 mmol/L (22-29); Chloride 106 mmol/L (96-108); Creatinine Clr Calc Pharmacy 60.8; Estimated Glomerular Filt Rate > 60; Glucose Fasting 81 mg/dL (60-99); Magnesium 1.8 mg/dL (1.6-2.6); Potassium 4.2 mmol/L (3.3-5.1); Sodium 140 mmol/L (135-145)
[2022-04-30 07:37] LABS: Glucose, Whole Blood 93 mg/dL (60-115)
--- NOTE | 2022-04-30 08:59 | HO.PM.IMPN ---
Subjective Subjective Date of Service: 04/30/22 Interval History: still with diarrhea Physical Exam Vital Signs: Vital Signs: Last Vital Signs Temp 98.7 F 04/30/22 07:19 Pulse 63 04/30/22 07:19 Resp 16 04/30/22 07:19 BP 149/69 H 04/30/22 07:19 Pulse Ox 94 04/30/22 07:19 O2 Del Method 04/30/22 07:19 BMI result Body Mass Index 27.4 General: AO X 3, no acute distress Resp: CTA bilateral, no accessory muscles used CVS: S1,S2,RRR GI: soft, non tender, non distended Neuro: motor grossly intact, alert Psych: appropriate affect, appropriate insight Objective Data Active Medications Acetaminophen (Acetaminophen 325 Mg Tablet) 650 mg PO Q6H PRN PRN Reason: Pain, Mild (Pain Scale 1-3) Last Admin: 04/30/22 03:34 Dose: 650 mg Documented By: DOMINIQUE Atorvastatin Calcium (Atorvastatin Calcium 80 Mg Tablet) 80 mg PO DAILY [facility] Last Admin: 04/29/22 09:34 Dose: 80 mg Documented By: SOFIA Carvedilol (Carvedilol 6.25 Mg Tablet) 6.25 mg PO BID [facility]; Protocol Last Admin: 04/29/22 20:20 Dose: 6.25 mg Documented By: DOMINIQUE Dextrose (Dextrose 50 % 25 Gm/50 Ml Syringe) 25 gm IVPUSH Q15M PRN; Protocol PRN Reason: per Hypoglycemia Standing Ord. Dicyclomine HCl (Dicyclomine Hcl 10 Mg Capsule) 20 mg PO TID [facility] Last Admin: 04/29/22 20:20 Dose: 20 mg Documented By: DOMINIQUE Diphenhydramine HCl (Diphenhydramine Hcl 25 Mg Capsule) 25 mg PO Q4H PRN PRN Reason: Itching Last Admin: 04/29/22 22:10 Dose: 25 mg Documented By: DOMINIQUE Docusate Sodium (Docusate Sodium 100 Mg Capsule) 100 mg PO DAILY PRN PRN Reason: Constipation Last Admin: 04/25/22 19:29 Dose: 100 mg Documented By: DOMINIQUE Enoxaparin Sodium (Enoxaparin Sodium 40 Mg/0.4 Ml Syringe) 40 mg SUBCUT Q12H [facility] Last Admin: 04/30/22 02:16 Dose: 40 mg Documented By: DOMINIQUE Fluoxetine HCl (Fluoxetine Hcl 20 Mg Capsule) 40 mg PO DAILY [facility] Last Admin: 04/29/22 09:34 Dose: 40 mg Documented By: SOFIA Glucose (Glucose Gel 15 Gm Gel..Gram.) 15 gm PO Q15M PRN; Protocol PRN Reason: per Hypoglycemia Standing Ord. Hydromorphone HCl (Hydromorphone Hcl 0.5 Mg/0.5 Ml Syringe) 0.5 mg IVPUSH Q4H PRN; Protocol PRN Reason: Pain, Severe (Pain Scale 7-10) Last Admin: 04/30/22 06:19 Dose: 0.5 mg Documented By: DOMINIQUE Ceftriaxone Sodium 1 gm/ (Sodium Chloride) 50 mls @ 100 mls/hr IV Q24H [facility] Last Infusion: 04/29/22 10:18 Dose: 0 mls/hr Documented By: SOFIA Insulin Glargine (Insulin Glargine,Hum.Rec.Anlog 100 Unit/Ml 10 Ml Vial) 20 unit SUBCUT BEDTIME [facility] Last Admin: 04/29/22 22:09 Dose: 20 unit Documented By: DOMINIQUE Insulin Human Lispro (Insulin Lispro 100 Unit/Ml 3 Ml Vial) 0 unit SUBCUT QIDACHS [facility]; Protocol Last Admin: 04/30/22 07:40 Dose: Not Given Documented By: JENSEN Non-Admin Reason: No Insulin Coverage Levothyroxine Sodium (Levothyroxine Sodium 100 Mcg Tablet) 100 mcg PO MoTuWeThFrSa@0600 [facility] Last Admin: 04/30/22 05:01 Dose: 100 mcg Documented By: DOMINIQUE Mirabegron (Mirabegron 50 Mg Tab.Er.24h) 50 mg PO DAILY [facility] Last Admin: 04/29/22 09:34 Dose: 50 mg Documented By: SOFIA Omeprazole (Omeprazole 20 Mg Capsule.Dr) 20 mg PO DAILY@0600 [facility] Last Admin: 04/30/22 05:01 Dose: 20 mg Documented By: DOMINIQUE Ondansetron HCl (Ondansetron Hcl 4 Mg/2 Ml Vial) 4 mg IVPUSH Q8H PRN PRN Reason: Nausea and Vomiting Sodium Chloride (0.9 % Sodium Chloride Flush 3 Ml Syringe) 3 ml IVFLUSH QSHIFT [facility] Last Admin: 04/29/22 20:21 Dose: 3 ml Documented By: DOMINIQUE Vancomycin HCl (Vancomycin Hcl 125 Mg Capsule) 125 mg PO Q6H [facility] Last Admin: 04/30/22 02:16 Dose: 125 mg Documented By: DOMINIQUE Labs 04/30/22 05:55 04/30/22 05:55 Labs: Laboratory Results - last 24 hr 04/29/22 04/29/22 04/29/22 11:30 16:36 20:39 MCV MCH MCHC RDW Plt Count MPV Absolute Nucleated RBC Nucleated RBC % (auto) Anion Gap Estim Creat Clear Calc Estimated GFR POC Glucose 228 H 172 H 220 H Fasting Glucose Calcium Magnesium 04/30/22 04/30/22 04/30/22 05:55 05:55 07:21 MCV 79.4 L MCH 25.1 L MCHC 31.7 RDW 17.6 H Plt Count 158 L MPV 10.1 Absolute Nucleated RBC 0.000 Nucleated RBC % (auto) 0.0 Anion Gap 13 Estim Creat Clear Calc 60.8 Estimated GFR > 60 POC Glucose 93 Fasting Glucose 81 Calcium 8.0 L Magnesium 1.8 Microbiology Microbiology Results: Microbiology 04/24/22 06:55 Blood Culture - Final Blood - Venous No growth after 5 days. Assessment and Plan (1) Pyelonephritis of right kidney: Status: Acute Plan 76F PMH DM, HTN, hypothyroid, mood disorder, presented with flank pain, dysuria acute? 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 while on abx and then 48hrs after still with loose stools hypertension changed metoprolol to coreg from better blood pressure control. ? hypothyroidism continue levothyroxine Lovenox for DVT Prophylaxis full code reason for continued hospitalization:diarrhea Time Spent With Patient Time: Total time managing care of this patient today ____ minutes. Quality Stroke Does the patient have a stroke diagnosis?: No VTE Prior VTE?: No VTE Risk Level:: Medical - moderate - high VTE Device Contraindication: Treatment Not Indicated VTE Drug Contraindication: N/A - Med Ordered
[2022-04-30] MEDS: Mirabegron 50 MG TAB.ER.24H PO (09:34)
[2022-04-30] MEDS: cefTRIAXone sodium 1 GM in 0.9 % Sodium Chloride 50 ML IV (09:34)
[2022-04-30] MEDS: FLUoxetine HCl 20 MG CAPSULE 40 MG PO (09:34)
[2022-04-30] MEDS: 0.9 % Sodium Chloride Flush 3 ML SYRINGE IVFLUSH ×3 (09:35→20:51)
[2022-04-30] MEDS: Dicyclomine HCl 10 MG CAPSULE 20 MG PO ×3 (09:35→20:45)
[2022-04-30] MEDS: Atorvastatin Calcium 80 MG TABLET PO (09:35)
[2022-04-30] MEDS: carvediloL 6.25 MG TABLET PO ×2 (09:35→20:46)
[2022-04-30 11:46] LABS: Glucose, Whole Blood 230 mg/dL (60-115)
[2022-04-30] MEDS: Insulin Lispro 100 UNIT/ML 3 ML VIAL SUBCUT ×3 (11:57→20:47)
[2022-04-30 15:26] VITALS: BP 146/67; PULSE 63; RESP 18; TEMP 37; O2SAT 95
[2022-04-30 17:04] LABS: Glucose, Whole Blood 215 mg/dL (60-115)
[2022-04-30 19:22] VITALS: BP 138/61; PULSE 63; RESP 18; TEMP 37.1; O2SAT 94
[2022-04-30 20:28] LABS: Glucose, Whole Blood 247 mg/dL (60-115)
[2022-04-30] MEDS: Insulin Glargine,Hum.rec.anlog 100 UNIT/ML 10 ML VIAL 20 UNIT SUBCUT (20:46)
[2022-05-01] MEDS: HYDROmorphone HCl 0.5 MG/0.5 ML SYRINGE IVPUSH (01:31)
[2022-05-01] MEDS: Enoxaparin Sodium 40 MG/0.4 ML SYRINGE SUBCUT (01:31)
[2022-05-01] MEDS: vancomycin HCL 125 MG CAPSULE PO ×2 (01:31→09:45)
[2022-05-01 02:55] VITALS: BP 146/65; PULSE 68; RESP 18; TEMP 36.8; O2SAT 96
[2022-05-01] MEDS: Levothyroxine Sodium 100 MCG TABLET PO (05:27)
[2022-05-01] MEDS: Omeprazole 20 MG CAPSULE.DR PO (05:27)
[2022-05-01] MEDS: Acetaminophen 325 MG TABLET 650 MG PO (05:42)
[2022-05-01 07:22] LABS: Glucose, Whole Blood 142 mg/dL (60-115)
[2022-05-01 08:00] VITALS: BP 186/76; PULSE 67; RESP 18; TEMP 36.4; O2SAT 95
--- NOTE | 2022-05-01 09:36 | P.DS_ITS ---
DS: Providers Provider Date of Service: 05/01/22 Date of admission: 04/24/22 02:07 Primary care physician: Mike Borges DO Consults: 04/24/22 12:43 Consult to Urology Routine Consulting Provider: Omar Kathleen Reason for consultation: recurrent UTI, kidney stone Has provider been notified: Yes 04/26/22 10:08 Consult to Infectious Diseases Routine Consulting Provider: Gin Flores Reason for consultation: pyelonephritits Has provider been notified: No DS: Diagnosis Discharge Diagnosis (1) Pyelonephritis of right kidney: Status: Acute DS: Summary Hospital Course Hospital Course: from initial hpi: Chief Complaint: flank pain, urinary symptoms ?76-year-old female with recurrent UTI, presents the hospital with complaints of urinary symptoms.? Patient reports that her symptoms including dysuria, urgency, frequency started about a week ago, she was started on Bactrim outpatient, with slight improvement in her symptoms, but once she completed antibiotics her symptoms returned.? She is also complaining of right flank pain radiating to the groin.? She denies any fever, no chills, no chest pain shortness of breath, no abdominal pain nausea or vomiting, no diarrhea constipation, no urinary symptoms and no lower extremity edema.? She describes the flank pain is 10/10, constant, nonradiating ?there is positive for nitrites, WBC, leukocyte Estrace as well as bacteria Abdominal pelvic CT shows no renal calculi or hydronephrosis, no perinephric inflammatory stranding although CT is noncontrast. ? On arrival to the ED patient hemodynamically stable with no significant ab normal vitals Labs? are significant for WBC count 10.7, labs otherwise unremarkable, UA positive as mentioned hospital course: Patient was admitted for acute urinary tract infection/pyelonephritis. Urine culture grew E coli sensitive to ceftriaxone. Patient was treated with ceftriaxone, recommendations were for 14 days of antibiotics to completed with oral cefuroxime May 08. Patient started experiencing diarrhea with antibiotics and due to history of C diff carrier status was seen by infectious disease recommended empiric treatment with vancomycin p.o. until 48 hours after completion of antibiotics. For hypertension her metoprolol was changed to Coreg for better blood pressure control. For hypothyroidism she was continued on Synthroid. Patient is feeling better will be discharged home. Time Spent with Patient Time attestation: Total time managing care of this patient today ____ minutes. Discharge coordination time: Greater than 30 minutes Quality: Safe Use of Opioids Does Pt have an Active Cancer Diagnosis on the Problem List?: No Quality: Stroke Does the patient have a stroke diagnosis?: No Physical Exam Vital Signs: Vital Signs: Last Vital Signs Temp 97.6 F 05/01/22 08:00 Pulse 67 05/01/22 08:00 Resp 18 05/01/22 08:00 BP 186/76 H 05/01/22 08:00 Pulse Ox 95 05/01/22 08:00 O2 Del Method 05/01/22 08:00 BMI result Body Mass Index 27.4 General: AO X 3, no acute distress Resp: CTA bilateral, no accessory muscles used CVS: S1,S2,RRR GI: soft, non tender, non distended Neuro: motor grossly intact, alert Psych: appropriate affect, appropriate insight DS: Data Data Completed and Pending Labs on day of discharge: Laboratory Results - last 24 hr 04/30/22 04/30/22 04/30/22 11:42 16:53 19:26 POC Glucose 230 H 215 H 247 H 05/01/22 07:16 POC Glucose 142 H Discharge Plan Discharge Anticipated Discharge Date/Time: 05/01/22 09:30 Patient Disposition: Home, Self-Care Discharge Diagnosis: uti Referrals: Mike Borges DO [Primary Care Provider] - 1 Week Discharge Medications: New carvedilol 6.25 mg Tablet 6.25 mg PO BID 60 Days Qty: 120 0RF Protocol: Hold for SBP/HR < HOLD for SBP < : 90 HOLD for HR < : 60 vancomycin 125 mg Capsule 125 mg PO Q6H 9 Days Qty: 36 0RF cefuroxime axetil 500 mg tablet 500 mg PO Q12H Qty: 14 0RF oxycodone 5 mg tablet 5 mg PO Q6H PRN (Reason: moderate pain) Qty: 15 0RF Rx Instructions: Partial Fill upon patient request. Continued acetaminophen 325 mg Tablet 650 mg PO Q6H PRN (Reason: Pain) insulin lispro [Humalog KwikPen Insulin] 100 unit/mL insulin pen 0 sliding scale dose subcut QIDACHS Protocol: Insulin Correction Scale Less than or equal to 110 ---- Give (units): 0 111 to 150 Give (units): 0 151 to 200 Give (units): 2 201 to 250 Give (units): 4 251 to 300 Give (units): 6 301 to 350 Give (units): 8 Greater than 350 Give (units): 10 Call MD if Blood Glucose > : 350 levothyroxine 100 mcg tablet 100 mcg PO MOTUWETHFRSA dicyclomine 10 mg capsule 20 mg PO TID fluoxetine 40 mg capsule 40 mg PO DAILY insulin glargine 100 unit/mL (3 mL) insulin pen 20 unit subcut BEDTIME atorvastatin 80 mg tablet 80 mg PO DAILY pantoprazole 40 mg tablet,delayed release (DR/EC) 40 mg PO DAILY (DME) pen needle, diabetic [BD Ultra-Fine Short Pen Needle] 31 gauge x 5/16 needle See Rx Instructions subcut DAILY Qty: 1200 Rx Instructions: As directed Myrbetriq 25 mg tablet extended release 24 hr 50 mg PO DAILY 90 Days Qty: 180 2RF Discontinued metoprolol succinate 25 mg tablet extended release 24 hr 25 mg PO DAILY Discharge Orders: Discharge Order (Routine); Ordered 05/01/22 Ordered By: Perez Frey Diet: Advance to usual diet Activity on Discharge: As tolerated Stand Alone Forms: Patient Portal Discharge page Care Plan Goals: recovery Health Concerns: uti, diarrhea Plan of Treatment: 7 more days ceftin, 9 more days po vanco, changed toprol to coreg for better bp control Assessment: see above
[2022-05-01] MEDS: carvediloL 6.25 MG TABLET PO (09:45)
[2022-05-01] MEDS: Mirabegron 50 MG TAB.ER.24H PO (09:45)
[2022-05-01] MEDS: Atorvastatin Calcium 80 MG TABLET PO (09:45)
[2022-05-01] MEDS: 0.9 % Sodium Chloride Flush 3 ML SYRINGE IVFLUSH (09:45)
[2022-05-01] MEDS: FLUoxetine HCl 20 MG CAPSULE 40 MG PO (09:45)
[2022-05-01] MEDS: cefTRIAXone sodium 1 GM in 0.9 % Sodium Chloride 50 ML IV (09:46)
[2022-05-01] MEDS: Dicyclomine HCl 10 MG CAPSULE 20 MG PO (09:46)
[2022-05-01 10:37] LABS: Glucose, Whole Blood 223 mg/dL (60-115)
--- NOTE | 2022-05-01 10:59 | MHC.CM.PN ---
PT WILL DC BACK TO HER [facility] TODAY WITH NO SERVICES
== END 2022-05-01 12:20 | disposition home or self-care (01) | DRG 690 ==
LOC: HO.ED 04-24 00:49 → HO.EDOVER 04-24 02:15 → HO.S3 04-24 10:49
PROVIDERS: Internal Medicine; Nurse Practitioner Family; Physician Assistant; Student in an Organized Health Care Education/Training Program; Admitting Provider Internal Medicine; Emergency Provider Emergency Medicine Emergency Medical Services; PCP Family Medicine; Visit Provider Internal Medicine
DX: N10 Acute pyelonephritis (principal); E03.9 Hypothyroidism, unspecified; N18.30 Chronic kidney disease, stage 3 unspecified; I12.9 Hypertensive chronic kidney disease with stage 1 through stage 4 chronic kidney disease, or unspecified chronic kidney disease; B96.20 Unspecified Escherichia coli [E. coli] as the cause of diseases classified elsewhere; Z20.822 Contact with and (suspected) exposure to COVID-19; Z87.440 Personal history of urinary (tract) infections; Z91.040 Latex allergy status; Z88.1 Allergy status to other antibiotic agents; Z88.2 Allergy status to sulfonamides; Z88.8 Allergy status to other drugs, medicaments and biological substances; Z79.4 Long term (current) use of insulin; Z79.890 Hormone replacement therapy; Z79.899 Other long term (current) drug therapy
CPT/HCPCS: 36415; 74176; 80048; 80053; 81001; 82947; 83605; 83735; 85025; 85027; 87040; 87086; 87088; 87186; 87635; 99285; J0696; J1170; J1650; J1885; J2270

== ENCOUNTER 2022-05-13 15:09 | Emergency (ER) | payer MEDICARE, SELFPAY ==
--- NOTE | ~2022-05-13 | CT_ITS ---
EXAMINATION: CT ABDOMEN AND PELVIS WITHOUT CONTRAST CLINICAL INFORMATION: Colitis. Right-sided abdominal pain. COMPARISON: CT of the abdomen and pelvis done on 04/23/2022. TECHNIQUE: Multidetector volumetric imaging was performed from the superior aspect of the liver through the pubic symphysis. Sagittal and coronal reformatted images were obtained on the technologist's workstation. This CT examination was performed using dose optimization techniques as appropriate, variously including the following: *Automated exposure control *Adjustment of mA and/or kV according to patient size (this includes techniques or standardized protocols for targeted exams where dose is matched to indication/reason for exam; i.e. extremities or head) *Use of iterative reconstruction technique DLP: 485 mGy-cm FINDINGS: LUNG BASES: Bilateral subpleural reticulation appear unchanged. LIVER, GALLBLADDER, AND BILIARY TREE: The liver is normal in size, shape, and attenuation. No focal hepatic lesion. The gallbladder is surgically absent. The common bile left is dilated, unchanged. PANCREAS: Diffuse hypodensity is present within the pancreas without evidence of any inflammatory changes, similar to prior study. SPLEEN: Unremarkable. ADRENAL GLANDS: Unremarkable. KIDNEYS AND URETERS: The kidneys are normal in size, shape, and attenuation. No hydronephrosis, hydroureter, or calculi seen. No perinephric stranding. Incidental note is made of slightly lobulated appearance of the right kidney, unchanged. BLADDER: Unremarkable. GASTROINTESTINAL TRACT: Multiple prominent small bowel loops are noted within the upper abdomen with small air-fluid level, measured less than 3 cm. Similar-appearing multiple small air-fluid levels are also noted within the lower abdomen at the level of the pelvic inlet. The distal small bowel loops appear decompressed. The large bowel is mostly fluid-filled and is seen to the level of the rectum multiple small tiny air pockets likely represent loose stool. No evidence of any wall thickening or pericolonic inflammatory changes. Nonvisualized appendix. The findings may represent ileus and/or subacute/low-grade partial obstruction. No definite evidence of any transition zone. Overall, no significant change since 04/23/2022. ABDOMINAL WALL: No significant hernia is appreciated. LYMPH NODES: Normal. VASCULAR: Diffuse atherosclerotic disease of the aorta and its branches without aneurysm formation. PELVIC VISCERA: Unremarkable. No evidence of any free fluid or free air. OSSEOUS STRUCTURES: Extensive postsurgical changes of posterior spinal as well as anterior spinal/intervertebral disc fusion is seen at lower lumbar spine. Note is made of presence of a spinal cord stimulator electrodes, the visualized part of the device appear intact. Overall, no significant change. CT/CT abdomen pelvis wo IV con IMPRESSION: Multiple prominent small bowel loops are noted within the upper abdomen as well as the lower abdomen with relatively decompressed distal small bowel loops however, by measurement the caliber of the small bowel loops are still within normal limits. The large bowel is filled with fluid and extensive tiny air pockets, may represent loose stool seen from the level of the cecum to the rectum. The findings may represent ileus and/or subacute/low-grade partial small bowel obstruction. No definite evidence of any transition zone. Overall, no significant change since 04/23/2022. Fleischner guidelines were followed.
[2022-05-13 15:21] VITALS: BP 104/91; PULSE 78; RESP 16; TEMP 36.8; O2SAT 93; BMI 22.8
--- NOTE | 2022-05-13 15:21 | ED_ITS ---
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 history of C diff colitis 2021 the discharge home 05/01/2022 for E coli UTI on cefuroxime and prophylactic vancomycin initially patient continued to have diarrhea now she had only 2 or 3 bowel movements a day with chronic right lower abdominal pain which is getting worse patient has a CT scan done on 04/23 which did not show any acute no fever no chills patient feels hungry patient does have history of IBS <Jose Dumont MD - Last Filed: 05/14/22 00:19> Related Data Home Medications: Home Medications Medication Instructions Recorded Confirmed atorvastatin 80 mg tablet 80 mg PO DAILY 04/17/20 04/24/22 dicyclomine 10 mg capsule 20 mg PO TID 04/17/20 04/24/22 fluoxetine 40 mg capsule 40 mg PO DAILY 04/17/20 04/24/22 insulin glargine 100 unit/mL (3 20 unit subcut BEDTIME 04/17/20 04/24/22 mL) subcutaneous pen levothyroxine 100 mcg tablet 100 mcg PO MOTUWETHFRSA 04/17/20 04/24/22 pantoprazole 40 mg tablet,delayed 40 mg PO DAILY 05/30/20 04/24/22 release pen needle, diabetic 31 gauge x #1,200 ea 04/03/21 12/10/21/16 (BD Ultra-Fine Short Pen Needle) acetaminophen 325 mg tablet 650 mg PO Q6H PRN Pain 04/24/22 04/24/22 insulin lispro 100 unit/mL 0 sliding scale dose subcut QIDACHS 04/24/22 04/24/22 subcutaneous pen (Humalog KwikPen (U-100) Insulin) Previous Rx's Medication Instructions Recorded mirabegron 25 mg tablet,extended 50 mg PO DAILY 90 days #180 tabs 12/10/21 release 24 hr (Myrbetriq) carvedilol 6.25 mg tablet 6.25 mg PO BID 60 days #120 tabs 05/01/22 cefuroxime axetil 500 mg tablet 500 mg PO Q12H #14 tabs 05/01/22 oxycodone 5 mg tablet 5 mg PO Q6H PRN moderate pain #15 05/01/22 tabs vancomycin 125 mg capsule 125 mg PO Q6H 9 days #36 caps 05/01/22 <NIELS Campbell - Last Filed: 05/13/22 15:28> Allergies/Adverse Reactions: Allergies Allergy/AdvReac Type Severity Reaction Status Date / Time droperidol [From INAPSINE] Allergy Severe HYPERACTIVE Verified 05/13/22 15:24 doxycycline [DOXYCYCLINE] Allergy Intermediate N/V/DIARRHE Verified 05/13/22 15:24 A latex [LATEX] Allergy Intermediate RASH Verified 05/13/22 15:24 amlodipine Allergy Unknown Unknown Verified 05/13/22 15:24 cephalexin [Keflex] Allergy Unknown Unknown Verified 05/13/22 15:24 ciprofloxacin [Cipro] Allergy Unknown Unknown Verified 05/13/22 15:24 levofloxacin [Levaquin] Allergy Unknown Unknown Verified 05/13/22 15:24 sulfamethoxazole AdvReac Mild GI UPSET Verified 05/13/22 15:24 [From BACTRIM] trimethoprim [From BACTRIM] AdvReac Mild GI UPSET Verified 05/13/22 15:24 <NIELS Campbell - Last Filed: 05/13/22 15:28> Review of Systems Review of Systems Constitutional : No Weight loss, No Fever, No Chills ENT/Mouth : No sore throat, No Rhinorrhea Eyes: No Eye Pain, No Swelling Cardiovascular : No Chest Pain, no palpitations Respiratory : No Cough, No Sputum, no shortness of breath Gastrointestinal :++ Nausea, No Vomiting, + Diarrhea,+ abdominal Pain, no black stools Genitourinary : No Dysuria, No Urinary Frequency Musculoskeletal : No joint pain, No Myalgias, No Joint Swelling Skin : No Skin Lesions, No rash Neuro : No Weakness, No Numbness, No Dizziness, No Headache Psych : No Anxiety/Panic, No Depression Heme/Lymph: No Bruising, No Lymphadenopathy Endocrine : No Polyuria, No Polydipsia All other systems reviewed and are negative <Jose Dumont MD - Last Filed: 05/14/22 00:19> Yes all other systems are reviewed and are negative <Jose Dumont MD - Last Filed: 05/14/22 00:19> PMF Past Medical History Medical History: Medical History Chronic kidney disease Hematuria Hx: UTI (urinary tract infection) Incomplete emptying of bladder Pyuria Urethral caruncle <NIELS Campbell - Last Filed: 05/13/22 15:28> Surgical History: Surgical History History of total hysterectomy <NIELS Campbell - Last Filed: 05/13/22 15:28> Social History Social History: Social History Household Members: None Housing: Assisted Living Facility Do you presently have visiting nurse or other home services: Yes Alcohol intake: never Patient Tobacco Use Status: Never used Tobacco Advance Directives: No Advance Directives Information Provided: No service: No Current occupational status: retired <NIELS Campbell - Last Filed: 05/13/22 15:28> Physical Exam ED Vital Signs: Vital Signs - 24 hr 05/13/22 15:21 05/13/22 19:44 Temperature 98.2 F 98.5 F Pulse Rate 78 67 Respiratory Rate 16 17 Blood Pressure 104/91 H 156/83 H Pulse Oximetry 93 98 Oxygen Delivery Method Room Air Room Air BMI result Body Mass Index 22.8 <NIELS Campbell - Last Filed: 05/13/22 15:28> Vital Signs - 24 hr 05/13/22 15:21 05/13/22 19:44 Temperature 98.2 F 98.5 F Pulse Rate 78 67 Respiratory Rate 16 17 Blood Pressure 104/91 H 156/83 H Pulse Oximetry 93 98 Oxygen Delivery Method Room Air Room Air BMI result Body Mass Index 22.8 <Jose Dumont MD - Last Filed: 05/14/22 00:19> Appearance: Alert. Oriented X3. No acute distress. Eyes: PERRLA, No Nystagmus ENT: Pharynx normal. Oral Mucosa moist Neck: Normal inspection. Neck supple. CVS: Normal heart rate and rhythm. Pulses normal. Respiratory: No respiratory distress. Equal air entry bilateral, no wheezing/rales/rhonchi Abdomen: Soft, deep tenderness right lower abdomen no rebound tenderness or guarding Bowel sounds are present, no mass palpable, no CVA tenderness Skin: Skin warm and dry. Normal skin color. Normal skin turgor. Extremities: No lower extremity edema. No calf tenderness Neuro: Oriented X 3. No motor deficit. <Jose Dumont MD - Last Filed: 05/14/22 00:19> Course Course Course Narrative: RME--76yo F w/PMHx recurrent UTI recently admitted to our facility for pyelonephritis discharge on 05/01 complicated by suspected Cdiff on PO Vanco c/o continued abdominal pain, dysuria, and watery diarrhea since dishcarge. Reports decreased PO intake Abdomen soft, diffusely tender, no rebound or guarding Labs, UA, COVID/FLU, stool studies ordered in triage <NIELS Campbell - Last Filed: 05/13/22 15:28> Medical Decision Making Medical Decision Making [facility] Narrative: Patient had 1 small bowel movement which was not lose looks comfortable CT scan negative for any acute changes labs are stable will allow the patient to continue vancomycin p.o. finishes continued for IBS because of abdominal pain and diarrhea stool negative for C diff. Patient feeling much better now <Jose Dumont MD - Last Filed: 05/14/22 00:19> Lab Data [facility] Lab Attestation statement: I reviewed the patient's lab results. <Jose Dumont MD - Last Filed: 05/14/22 00:19> Result Diagrams: 05/13/22 16:17 05/13/22 16:17 <NIELS Campbell - Last Filed: 05/13/22 15:28> Labs: Lab Results 03/15/23 03/15/23 03/15/23 Range/Units 16:17 16:17 18:50 WBC 8.1 (4.8-10.8) X10*3/uL RBC 5.10 D (4.20-5.50) X10*6/uL Hgb 12.6 D (12.0-16.0) g/dl Hct 39.9 D (37.0-47.0) % MCV 78.2 L (80.0-98.0) fL MCH 24.7 L (27.0-33.0) pg MCHC 31.6 (31.0-35.0) g/dl RDW 16.8 H (11.0-16.0) % Plt Count 299 D (160-400) X10*3/uL MPV 8.8 L (9.4-12.3) fL Immature Gran % (Auto) 0.2 (0.0-0.4) % Neut % (Auto) 55.0 (45-73) % Lymph % (Auto) 36.8 (20-40) % [place] % (Auto) 4.7 (2-11) % Eos % (Auto) 2.2 (0-4) % Baso % (Auto) 1.1 (0-2) % Lymph # (Auto) 3.0 (1.2-4.9) X10*3/uL [place] # (Auto) 0.4 (0.1-1.2) X10*3/uL Eos # (Auto) 0.2 (0.0-0.4) X10*3/uL Baso # (Auto) 0.1 (0.0-0.2) X10*3/uL Abs Immat Gran (auto) 0.02 (0.00-0.03) X10*3/uL Absolute Neuts (auto) 4.4 (2.0-8.3) x10*3/uL Absolute Nucleated RBC 0.000 (0.0-0.012) X10*3/uL Nucleated RBC % (auto) 0.0 (0.0-0.2) /100WBC Sodium (135-145) mmol/L Potassium (3.3-5.1) mmol/L Chloride (96-108) mmol/L Carbon Dioxide (22-29) mmol/L Anion Gap (12-20) BUN (9-16) mg/dL Creatinine (0.5-1.4) mg/dL Estim Creat Clear Calc Estimated GFR Random Glucose (60-115) mg/dL Lactic Acid (0.5-2.0) mmol/L Calcium (8.4-10.2) mg/dL Magnesium (1.6-2.6) mg/dL Total Bilirubin (0.0-1.0) mg/dL Direct Bilirubin (0.0-0.5) mg/dL AST (5-31) U/L ALT (0-31) U/L Alkaline Phosphatase (39-117) U/L Total Protein (6.5-8.0) g/dL Albumin (3.5-5.0) g/dL Lipase (8-78) U/L C. difficile Tox B Gene (Negative) COVID-19 (SALLY) Negative (Negative) COVID-19 Clin Com See Note Influenza Type A (GORDY) Negative (Negative) Influenza Type B (GORDY) Negative (Negative) Influenza A & B Note See Note 05/13/22 05/13/22 05/13/22 Range/Units 18:50 18:50 21:37 WBC (4.8-10.8) X10*3/uL RBC (4.20-5.50) X10*6/uL Hgb (12.0-16.0) g/dl Hct (37.0-47.0) % MCV (80.0-98.0) fL MCH (27.0-33.0) pg MCHC (31.0-35.0) g/dl RDW (11.0-16.0) % Plt Count (160-400) X10*3/uL MPV (9.4-12.3) fL Immature Gran % (Auto) (0.0-0.4) % Neut % (Auto) (45-73) % Lymph % (Auto) (20-40) % [place] % (Auto) (2-11) % Eos % (Auto) (0-4) % Baso % (Auto) (0-2) % Lymph # (Auto) (1.2-4.9) X10*3/uL [place] # (Auto) (0.1-1.2) X10*3/uL Eos # (Auto) (0.0-0.4) X10*3/uL Baso # (Auto) (0.0-0.2) X10*3/uL Abs Immat Gran (auto) (0.00-0.03) X10*3/uL Absolute Neuts (auto) (2.0-8.3) x10*3/uL Absolute Nucleated RBC (0.0-0.012) X10*3/uL Nucleated RBC % (auto) (0.0-0.2) /100WBC Sodium 141 (135-145) mmol/L Potassium 4.3 (3.3-5.1) mmol/L Chloride 105 (96-108) mmol/L Carbon Dioxide 26 (22-29) mmol/L Anion Gap 14 (12-20) BUN 14 (9-16) mg/dL Creatinine 1.00 (0.5-1.4) mg/dL Estim Creat Clear Calc 49.0 Estimated GFR 54 Random Glucose 73 (60-115) mg/dL Lactic Acid 1.1 (0.5-2.0) mmol/L Calcium 8.4 (8.4-10.2) mg/dL Magnesium 2.1 (1.6-2.6) mg/dL Total Bilirubin 0.3 (0.0-1.0) mg/dL Direct Bilirubin < 0.2 (0.0-0.5) mg/dL AST 39 H (5-31) U/L ALT 22 (0-31) U/L Alkaline Phosphatase 148 H (39-117) U/L Total Protein 6.8 (6.5-8.0) g/dL Albumin 4.1 (3.5-5.0) g/dL Lipase 26 (8-78) U/L C. difficile Tox B Gene NEGATIVE (Negative) COVID-19 (SALLY) (Negative) COVID-19 Clin Com Influenza Type A (GORDY) (Negative) Influenza Type B (GORDY) (Negative) Influenza A & B Note <NIELS Campbell - Last Filed: 05/13/22 15:28> Lab Results 05/13/22 05/13/22 05/13/22 Range/Units 16:17 16:17 18:50 WBC 8.1 (4.8-10.8) X10*3/uL RBC 5.10 D (4.20-5.50) X10*6/uL Hgb 12.6 D (12.0-16.0) g/dl Hct 39.9 D (37.0-47.0) % MCV 78.2 L (80.0-98.0) fL MCH 24.7 L (27.0-33.0) pg MCHC 31.6 (31.0-35.0) g/dl RDW 16.8 H (11.0-16.0) % Plt Count 299 D (160-400) X10*3/uL MPV 8.8 L (9.4-12.3) fL Immature Gran % (Auto) 0.2 (0.0-0.4) % Neut % (Auto) 55.0 (45-73) % Lymph % (Auto) 36.8 (20-40) % [place] % (Auto) 4.7 (2-11) % Eos % (Auto) 2.2 (0-4) % Baso % (Auto) 1.1 (0-2) % Lymph # (Auto) 3.0 (1.2-4.9) X10*3/uL [place] # (Auto) 0.4 (0.1-1.2) X10*3/uL Eos # (Auto) 0.2 (0.0-0.4) X10*3/uL Baso # (Auto) 0.1 (0.0-0.2) X10*3/uL Abs Immat Gran (auto) 0.02 (0.00-0.03) X10*3/uL Absolute Neuts (auto) 4.4 (2.0-8.3) x10*3/uL Absolute Nucleated RBC 0.000 (0.0-0.012) X10*3/uL Nucleated RBC % (auto) 0.0 (0.0-0.2) /100WBC Sodium (135-145) mmol/L Potassium (3.3-5.1) mmol/L Chloride (96-108) mmol/L Carbon Dioxide (22-29) mmol/L Anion Gap (12-20) BUN (9-16) mg/dL Creatinine (0.5-1.4) mg/dL Estim Creat Clear Calc Estimated GFR Random Glucose (60-115) mg/dL Lactic Acid (0.5-2.0) mmol/L Calcium (8.4-10.2) mg/dL Magnesium (1.6-2.6) mg/dL Total Bilirubin (0.0-1.0) mg/dL Direct Bilirubin (0.0-0.5) mg/dL AST (5-31) U/L ALT (0-31) U/L Alkaline Phosphatase (39-117) U/L Total Protein (6.5-8.0) g/dL Albumin (3.5-5.0) g/dL Lipase (8-78) U/L C. difficile Tox B Gene (Negative) COVID-19 (SALLY) Negative (Negative) COVID-19 Clin Com See Note Influenza Type A (GORDY) Negative (Negative) Influenza Type B (GORDY) Negative (Negative) Influenza A & B Note See Note 05/13/22 05/13/22 05/13/22 Range/Units 18:50 18:50 21:37 WBC (4.8-10.8) X10*3/uL RBC (4.20-5.50) X10*6/uL Hgb (12.0-16.0) g/dl Hct (37.0-47.0) % MCV (80.0-98.0) fL MCH (27.0-33.0) pg MCHC (31.0-35.0) g/dl RDW (11.0-16.0) % Plt Count (160-400) X10*3/uL MPV (9.4-12.3) fL Immature Gran % (Auto) (0.0-0.4) % Neut % (Auto) (45-73) % Lymph % (Auto) (20-40) % [place] % (Auto) (2-11) % Eos % (Auto) (0-4) % Baso % (Auto) (0-2) % Lymph # (Auto) (1.2-4.9) X10*3/uL [place] # (Auto) (0.1-1.2) X10*3/uL Eos # (Auto) (0.0-0.4) X10*3/uL Baso # (Auto) (0.0-0.2) X10*3/uL Abs Immat Gran (auto) (0.00-0.03) X10*3/uL Absolute Neuts (auto) (2.0-8.3) x10*3/uL Absolute Nucleated RBC (0.0-0.012) X10*3/uL Nucleated RBC % (auto) (0.0-0.2) /100WBC Sodium 141 (135-145) mmol/L Potassium 4.3 (3.3-5.1) mmol/L Chloride 105 (96-108) mmol/L Carbon Dioxide 26 (22-29) mmol/L Anion Gap 14 (12-20) BUN 14 (9-16) mg/dL Creatinine 1.00 (0.5-1.4) mg/dL Estim Creat Clear Calc 49.0 Estimated GFR 54 Random Glucose 73 (60-115) mg/dL Lactic Acid 1.1 (0.5-2.0) mmol/L Calcium 8.4 (8.4-10.2) mg/dL Magnesium 2.1 (1.6-2.6) mg/dL Total Bilirubin 0.3 (0.0-1.0) mg/dL Direct Bilirubin < 0.2 (0.0-0.5) mg/dL AST 39 H (5-31) U/L ALT 22 (0-31) U/L Alkaline Phosphatase 148 H (39-117) U/L Total Protein 6.8 (6.5-8.0) g/dL Albumin 4.1 (3.5-5.0) g/dL Lipase 26 (8-78) U/L C. difficile Tox B Gene NEGATIVE (Negative) COVID-19 (SALLY) (Negative) COVID-19 Clin Com Influenza Type A (GORDY) (Negative) Influenza Type B (GORDY) (Negative) Influenza A & B Note <Jose Dumont MD - Last Filed: 05/14/22 00:19> Medications Administered Discontinued Medications Generic Name Dose Route Start Last Admin Trade Name Freq PRN Reason Stop Dose Admin Dicyclomine HCl 20 mg 05/13/22 20:37 05/13/22 20:51 Dicyclomine Hcl 10 Mg Capsule PO 05/13/22 20:38 20 mg ONCE ONE Administration Sodium Chloride 1,000 mls @ 999 mls/hr 05/13/22 18:03 03/15/23 18:57 Ns IV 05/13/22 19:03 999 mls/hr .Q1H1M ONE Administration Morphine Sulfate 4 mg 05/13/22 18:33 05/13/22 18:56 Morphine Sulfate 4 Mg/Ml Cartridge IM 05/13/22 18:34 4 mg ONCE ONE Administration Protocol Ondansetron HCl 4 mg 05/13/22 16:35 05/13/22 16:38 Ondansetron Odt 4 Mg Tab.Rapdis TRANSLINGU 05/13/22 16:36 4 mg ONCE ONE Administration Oxycodone HCl 5 mg 05/13/22 22:28 05/13/22 22:32 Oxycodone Hcl Immed Release 5 Mg Tablet PO 05/13/22 22:29 5 mg ONCE ONE Administration <NIELS Campbell - Last Filed: 05/13/22 15:28> Medications Administered Discontinued Medications Generic Name Dose Route Start Last Admin Trade Name Freq PRN Reason Stop Dose Admin Dicyclomine HCl 20 mg 05/13/22 20:37 05/13/22 20:51 Dicyclomine Hcl 10 Mg Capsule PO 05/13/22 20:38 20 mg ONCE ONE Administration Sodium Chloride 1,000 mls @ 999 mls/hr 05/13/22 18:03 05/13/22 18:57 Ns IV 05/13/22 19:03 999 mls/hr .Q1H1M ONE Administration Morphine Sulfate 4 mg 05/13/22 18:33 05/13/22 18:56 Morphine Sulfate 4 Mg/Ml Cartridge IM 05/13/22 18:34 4 mg ONCE ONE Administration Protocol Ondansetron HCl 4 mg 05/13/22 16:35 05/13/22 16:38 Ondansetron Odt 4 Mg Tab.Rapdis TRANSLINGU 05/13/22 16:36 4 mg ONCE ONE Administration Oxycodone HCl 5 mg 05/13/22 22:28 05/13/22 22:32 Oxycodone Hcl Immed Release 5 Mg Tablet PO 05/13/22 22:29 5 mg ONCE ONE Administration <Jose Dumont MD - Last Filed: 05/14/22 00:19> Discharge Plan Discharge Clinical Impression: Irritable bowel syndrome <NIELS Campbell - Last Filed: 05/13/22 15:28> Patient Disposition: Home, Self-Care <NIELS Campbell - Last Filed: 05/13/22 15:28> Instructions: Irritable Bowel Syndrome (ED) <NIELS Campbell - Last Filed: 05/13/22 15:28> Additional Instructions: Drink plenty of fluid Continue dicyclomine as prescribed by your PCP <NIELS Campbell - Last Filed: 05/13/22 15:28> Prescriptions: No Action acetaminophen 325 mg Tablet 650 mg PO Q6H PRN (Reason: Pain) insulin lispro [Humalog KwikPen Insulin] 100 unit/mL insulin pen 0 sliding scale dose subcut QIDACHS Protocol: Insulin Correction Scale Less than or equal to 110 ---- Give (units): 0 111 to 150 Give (units): 0 151 to 200 Give (units): 2 201 to 250 Give (units): 4 251 to 300 Give (units): 6 301 to 350 Give (units): 8 Greater than 350 Give (units): 10 Call MD if Blood Glucose > : 350 carvedilol 6.25 mg Tablet 6.25 mg PO BID 60 Days Qty: 120 0RF Protocol: Hold for SBP/HR < HOLD for SBP < : 90 HOLD for HR < : 60 vancomycin 125 mg Capsule 125 mg PO Q6H 9 Days Qty: 36 0RF cefuroxime axetil 500 mg tablet 500 mg PO Q12H Qty: 14 0RF oxycodone 5 mg tablet 5 mg PO Q6H PRN (Reason: moderate pain) Qty: 15 0RF Rx Instructions: Partial Fill upon patient request. levothyroxine 100 mcg tablet 100 mcg PO MOTUWETHFRSA dicyclomine 10 mg capsule 20 mg PO TID fluoxetine 40 mg capsule 40 mg PO DAILY insulin glargine 100 unit/mL (3 mL) insulin pen 20 unit subcut BEDTIME atorvastatin 80 mg tablet 80 mg PO DAILY pantoprazole 40 mg tablet,delayed release (DR/EC) 40 mg PO DAILY (DME) pen needle, diabetic [BD Ultra-Fine Short Pen Needle] 31 gauge x 5/16 needle See Rx Instructions subcut DAILY Qty: 1200 Rx Instructions: As directed Myrbetriq 25 mg tablet extended release 24 hr 50 mg PO DAILY 90 Days Qty: 180 2RF <NIELS Campbell - Last Filed: 05/13/22 15:28> Interventions: ED Discharge Assessment Last Done: 05/13/22 22:47 <NIELS Campbell - Last Filed: 05/13/22 15:28> Discharge Date/Time: 05/13/22 22:47 <NIELS Campbell - Last Filed: 05/13/22 15:28>
[2022-05-13] MEDS: Ondansetron ODT 4 MG TAB.RAPDIS TRANSLINGU (16:38)
[2022-05-13 16:41] LABS: COVID-19 Test Negative (Negative); IDNOW Serial# 9DB6401D
[2022-05-13 16:42] LABS: IDNOW Serial# 55D5AD1C; Influenza A Negative (Negative); Influenza B2 Negative (Negative)
[2022-05-13] MEDS: Morphine Sulfate 4 MG/ML CARTRIDGE IM (18:56)
[2022-05-13] MEDS: 0.9 % Sodium Chloride 1,000 ML 999 ML IV (18:57)
[2022-05-13 19:00] LABS: Basophils Absolute Auto 0.1 X10*3/uL (0.0-0.2); Basophils Percent Auto 1.1 % (0-2); Eosinophils Absolute Auto 0.2 X10*3/uL (0.0-0.4); Eosinophils Percent Auto 2.2 % (0-4); Hematocrit 39.9 % (37.0-47.0); Hemoglobin 12.6 g/dl (12.0-16.0); Imm Gran Abs Auto 0.02 X10*3/uL (0.00-0.03); Imm Gran Pct Auto 0.2 % (0.0-0.4); Lymphocytes Percent Auto 36.8 % (20-40); Mean Corpuscular HGB Conc 31.6 g/dl (31.0-35.0); Mean Corpuscular Hemoglobin 24.7 pg (27.0-33.0); Mean Corpuscular Volume 78.2 fL (80.0-98.0); Mean Platelet Volume 8.8 fL (9.4-12.3); Monocytes Absolute Auto 0.4 X10*3/uL (0.1-1.2); Monocytes Percent Auto 4.7 % (2-11); Neutrophils Absolute Auto 4.4 x10*3/uL (2.0-8.3); Platelet Count 299 X10*3/uL (160-400); Red Cell Distribution Width 16.8 % (11.0-16.0); White Blood Count 8.1 X10*3/uL (4.8-10.8)
[2022-05-13 19:09] LABS: Lactic Acid 1.1 mmol/L (0.5-2.0)
[2022-05-13 19:13] LABS: Alanine Aminotransferase 22 U/L (0-31); Albumin Level 4.1 g/dL (3.5-5.0); Alkaline Phosphatase 148 U/L (39-117); Anion Gap 14 (12-20); Aspartate Amino Transferase 39 U/L (5-31); Bilirubin Direct < 0.2 mg/dL (0.0-0.5); Bilirubin Total 0.3 mg/dL (0.0-1.0); Blood Urea Nitrogen 14 mg/dL (9-16); Calcium 8.4 mg/dL (8.4-10.2); Carbon Dioxide 26 mmol/L (22-29); Chloride 105 mmol/L (96-108); Estimated Glomerular Filt Rate 54; Glucose Random 73 mg/dL (60-115); Lipase 26 U/L (8-78); Magnesium 2.1 mg/dL (1.6-2.6); Potassium 4.3 mmol/L (3.3-5.1); Sodium 141 mmol/L (135-145); Total Protein 6.8 g/dL (6.5-8.0)
[2022-05-13 19:44] VITALS: BP 156/83; PULSE 67; RESP 17; TEMP 36.9; O2SAT 98
[2022-05-13] MEDS: Dicyclomine HCl 10 MG CAPSULE 20 MG PO (20:51)
[2022-05-13 22:30] LABS: CDiff Gene PCR NEGATIVE (Negative)
[2022-05-13] MEDS: oxyCODONE HCl Immed Release 5 MG TABLET PO (22:32)
--- NOTE | 2022-05-13 22:48 | PC.NURSE ---
This nurse gave/explained discharge instructions No apparent distress Ambulates safely/independently IV cath tip intact upon removal
[2022-05-14 11:36] LABS: Adenovirus F 40/41 Not Detected (Not Detect.); Astrovirus Not Detected (Not Detect.); Campylobacter Not Detected (Not Detect.); Cryptosporidium Not Detected (Not Detect.); Cyclospora cayetanensis Not Detected (Not Detect.); E. coli EAEC Not Detected (Not Detect.); E. coli EPEC Not Detected (Not Detect.); E. coli ETEC Not Detected (Not Detect.); E. coli STEC Not Detected (Not Detect.); Entamoeba histolytica Not Detected (Not Detect.); Giardia lamblia Not Detected (Not Detect.); Norovirus GI/GII Not Detected (Not Detect.); Plesiomonas shigelloides Not Detected (Not Detect.); Rotavirus A Not Detected (Not Detect.); Salmonella Not Detected (Not Detect.); Sapovirus Not Detected (Not Detect.); Shigella sp./EIEC Not Detected (Not Detect.); Vibrio Not Detected (Not Detect.); Vibrio Cholerae Not Detected (Not Detect.); Yersinia enterocolitica Not Detected (Not Detect.)
== END 2022-05-13 22:47 | disposition home or self-care (01) ==
PROVIDERS: Physician Assistant; Emergency Provider Internal Medicine; PCP Family Medicine
DX: K58.9 Irritable bowel syndrome, unspecified (principal); Z20.822 Contact with and (suspected) exposure to COVID-19; Z20.828 Contact with and (suspected) exposure to other viral communicable diseases; Z87.440 Personal history of urinary (tract) infections; Z79.899 Other long term (current) drug therapy
CPT/HCPCS: 36415; 74176; 80048; 80076; 83605; 83690; 83735; 85025; 87040; 87493; 87502; 87507; 87635; 96372; 99284; J2270

== ENCOUNTER → 2022-05-14 11:02 | Outpatient (BNVA) | payer MEDICARE, SELFPAY | PROVIDERS: PCP Family Medicine; Visit Provider Urology | DX: N30.20 Other chronic cystitis without hematuria (principal); N32.81 Overactive bladder; N39.0 Urinary tract infection, site not specified; Z87.448 Personal history of other diseases of urinary system | CPT/HCPCS: 99212 ==

== ENCOUNTER 2022-05-14 14:44 | Observation (INO) | payer MEDICARE, SELFPAY ==
--- NOTE | ~2022-05-14 | XR_ITS ---
EXAMINATION: XR ABDOMEN KUB CLINICAL INDICATION: Small bowel obstruction COMPARISON: CT abdomen/pelvis dated 05/13/2022 TECHNIQUE: 2 views of the abdomen. FINDINGS: The bowel gas pattern is normal with no evidence of ileus or obstruction. No unusual soft tissue calcifications are noted. The bones are unremarkable. Posterior spinal fusion lower lumbar spine. Spinal neurostimulator. XR/XR KUB IMPRESSION: No dilated loops of small bowel.
--- NOTE | 2022-05-14 15:05 | ED.ABDPAIN ---
HPI - Abdominal Pain General Chief Complaint: Abdominal Pain <INELS Campbell - Last Filed: 05/14/22 15:11> Stated Complaint: Worsening abd pain <NIELS Campbell - Last Filed: 05/14/22 15:11> Time Seen by Provider: 05/14/22 23:52 <NIELS Campbell - Last Filed: 05/14/22 15:11> Source: patient and RN notes reviewed <Tawanda Angel - Last Filed: 05/15/22 01:52> Mode of arrival: ambulatory <Tawanda Angel - Last Filed: 05/15/22 01:52> Limitations: no limitations <Tawanda Angel - Last Filed: 05/15/22 01:52> History of Present Illness HPI narrative: 76-year-old female past medical history significant for recurrent UTI, recent admission for pyelonephritis, hypothyroidism, hypertension, IBS presents for evaluation of abdominal pain Patient was discharged on 05/01/2022 after an admission for pyelonephritis and suspected C diff pain next the patient has been taking prophylactic vancomycin. She reports that her diarrhea has mostly improved but she developed abdominal pain last night. She was seen in this facility, had labs, and CT scan and was ultimately discharged home. Her CT scan did show potential ileus versus low-grade partial small-bowel obstruction without transition point The patient reports her abdominal pain is now 10 in 10 and much worse than it was yesterday Her pain is mostly in the right lower quadrant. She reports that she is status post appendectomy Patient reports that she is passing minimal flatus <Tawanda Zuleta Last Filed: 05/15/22 01:52> Related Data Home Medications: Home Medications Medication Instructions Recorded Confirmed atorvastatin 80 mg tablet 80 mg PO DAILY 04/17/20 05/14/22 dicyclomine 10 mg capsule 20 mg PO TID 04/17/20 05/14/22 fluoxetine 40 mg capsule 40 mg PO DAILY 04/17/20 05/14/22 insulin glargine 100 unit/mL (3 20 unit subcut BEDTIME 04/17/20 05/14/22 mL) subcutaneous pen levothyroxine 100 mcg tablet 100 mcg PO MOTUWETHFRSA 04/17/20 05/14/22 pantoprazole 40 mg tablet,delayed 40 mg PO DAILY 05/30/20 05/14/22 release pen needle, diabetic 31 gauge x #1,200 ea 04/03/21 05/14/2207/14 (BD Ultra-Fine Short Pen Needle) acetaminophen 325 mg tablet 650 mg PO Q6H PRN Pain 04/24/22 05/14/22 insulin lispro 100 unit/mL 0 sliding scale dose subcut QIDACHS 04/24/22 05/14/22 subcutaneous pen (Humalog KwikPen (U-100) Insulin) metoprolol succinate 25 mg 25 mg PO DAILY 05/14/22 05/14/22 tablet,extended release 24 hr atorvastatin 80 mg tablet 1 tab PO DAILY 05/15/22 05/15/22 carvedilol 6.25 mg tablet 1 tab PO BID 05/15/22 05/15/22 fluoxetine 40 mg capsule 1 cap PO DAILY 05/15/22 05/15/22 gabapentin 300 mg capsule 2 cap PO BID 05/15/22 05/15/22 insulin glargine 100 unit/mL (3 32 unit subcut DAILY 05/15/22 05/15/22 mL) subcutaneous pen (Lantus Solostar U-100 Insulin) levothyroxine 100 mcg tablet 1 tab PO 6XW 05/15/22 05/15/22 mirabegron 25 mg tablet,extended 2 tab PO DAILY 05/15/22 05/15/22 release 24 hr (Myrbetriq) pantoprazole 40 mg tablet,delayed 1 tab PO DAILY 05/15/22 05/15/22 release Previous Rx's Medication Instructions Recorded mirabegron 25 mg tablet,extended 50 mg PO DAILY 90 days #180 tabs 12/10/21 release 24 hr (Myrbetriq) carvedilol 6.25 mg tablet 6.25 mg PO BID 60 days #120 tabs 05/01/22 estradiol 0.01% (0.1 mg/gram) 0.25 appful vaginal DAILY #42.5 05/14/22 vaginal cream (Estrace) grams <NIELS Campbell - Last Filed: 05/14/22 15:11> Allergies/Adverse Reactions: Allergies Allergy/AdvReac Type Severity Reaction Status Date / Time droperidol [From INAPSINE] Allergy Severe HYPERACTIVE Verified 05/14/22 11:33 doxycycline [DOXYCYCLINE] Allergy Intermediate N/V/DIARRHE Verified 05/14/22 11:33 A latex [LATEX] Allergy Intermediate RASH Verified 05/14/22 11:33 amlodipine Allergy Unknown Unknown Verified 05/14/22 11:33 cephalexin [Keflex] Allergy Unknown Unknown Verified 05/14/22 11:33 ciprofloxacin [Cipro] Allergy Unknown Unknown Verified 05/14/22 11:33 levofloxacin [Levaquin] Allergy Unknown Unknown Verified 05/14/22 11:33 sulfamethoxazole AdvReac Mild GI UPSET Verified 05/14/22 11:33 [From BACTRIM] trimethoprim [From BACTRIM] AdvReac Mild GI UPSET Verified 05/14/22 11:33 <NIELS Campbell - Last Filed: 05/14/22 15:11> Review of Systems Constitutional: Reports as per HPI, Denies chills, Denies fatigue, Denies fever(s) and Denies headache(s) <Tawanda Angel - Last Filed: 05/15/22 01:52> Denies headache(s) <Tawanda Angel - Last Filed: 05/15/22 01:52> Cardiovascular: Denies chest pain and Denies dyspnea <Tawanda Angel - Last Filed: 05/15/22 01:52> Respiratory: Denies cough and Denies dyspnea <Tawanda Angel - Last Filed: 05/15/22 01:52> Gastrointestinal: Reports abdominal pain, Denies hematochezia, Reports diarrhea and Denies vomiting <Tawanda Angel - Last Filed: 05/15/22 01:52> Genitourinary: Denies dysuria <Tawanda Angel - Last Filed: 05/15/22 01:52> Denies headache(s) and Denies focal weakness <Tawanda Angel - Last Filed: 05/15/22 01:52> Endocrine: Denies fatigue <Tawanda Angel - Last Filed: 05/15/22 01:52> PMFSH Past Medical History Medical History: Medical History Chronic kidney disease Hematuria Hx: UTI (urinary tract infection) Incomplete emptying of bladder Pyuria Urethral caruncle <NIELS Campbell - Last Filed: 05/14/22 15:11> Surgical History: Surgical History History of total hysterectomy <NIELS Campbell - Last Filed: 05/14/22 15:11> Social History Social History: Social History Household Members: None Housing: Assisted Living Facility Do you presently have visiting nurse or other home services: Yes Alcohol intake: current Alcohol intake frequency: holidays/special occasions only Patient Tobacco Use Status: Never used Tobacco Smoked in Last 30 Days: No Use of substances other than those prescribed or required for medical reasons: No Advance Directives: Yes Advance Directives on File: Yes Advance Directives Date on File: 04/24/22 service: No Current occupational status: retired <NIELS Campbell - Last Filed: 05/14/22 15:11> Physical Exam ED Vital Signs: Vital Signs - 24 hr 05/14/22 15:08 05/14/22 22:08 05/14/22 23:34 Temperature 98 F 97.9 F 98.5 F Pulse Rate 87 73 72 Respiratory Rate 18 18 16 Blood Pressure 153/71 H 178/77 H 196/80 H Pulse Oximetry 98 98 99 Oxygen Delivery Method Room Air Room Air Room Air 05/15/22 00:16 05/15/22 01:11 05/15/22 02:09 Temperature Pulse Rate 69 69 Respiratory Rate 18 18 18 Blood Pressure 171/60 H 183/66 H Pulse Oximetry 97 Oxygen Delivery Method Room Air 05/15/22 02:11 05/15/22 02:50 Temperature Pulse Rate Respiratory Rate 18 Blood Pressure 162/57 H Pulse Oximetry Oxygen Delivery Method BMI result Body Mass Index 26.6 <NIELS Campbell - Last Filed: 05/14/22 15:11> Vital Signs - 24 hr 05/14/22 15:08 05/14/22 22:08 05/14/22 23:34 Temperature 98 F 97.9 F 98.5 F Pulse Rate 87 73 72 Respiratory Rate 18 18 16 Blood Pressure 153/71 H 178/77 H 196/80 H Pulse Oximetry 98 98 99 Oxygen Delivery Method Room Air Room Air Room Air 05/15/22 00:16 05/15/22 01:11 05/15/22 02:09 Temperature Pulse Rate 69 69 Respiratory Rate 18 18 18 Blood Pressure 171/60 H 183/66 H Pulse Oximetry 97 Oxygen Delivery Method Room Air 05/15/22 02:11 05/15/22 02:50 Temperature Pulse Rate Respiratory Rate 18 Blood Pressure 162/57 H Pulse Oximetry Oxygen Delivery Method BMI result Body Mass Index 26.6 <Tawanda Angel - Last Filed: 05/15/22 01:52> Vital Signs - 24 hr 05/14/22 15:08 05/14/22 22:08 05/14/22 23:34 Temperature 98 F 97.9 F 98.5 F Pulse Rate 87 73 72 Respiratory Rate 18 18 16 Blood Pressure 153/71 H 178/77 H 196/80 H Pulse Oximetry 98 98 99 Oxygen Delivery Method Room Air Room Air Room Air 05/15/22 00:16 05/15/22 01:11 05/15/22 02:09 Temperature Pulse Rate 69 69 Respiratory Rate 18 18 18 Blood Pressure 171/60 H 183/66 H Pulse Oximetry 97 Oxygen Delivery Method Room Air 05/15/22 02:11 05/15/22 02:50 Temperature Pulse Rate Respiratory Rate 18 Blood Pressure 162/57 H Pulse Oximetry Oxygen Delivery Method BMI result Body Mass Index 26.6 <Peter Grijalva MD - Last Filed: 05/15/22 03:17> Const General: healthy appearing, comfortable, no acute distress, alert and awake <Tawanda Angel - Last Filed: 05/15/22 01:52> Nutritional Appearance: well nourished <Tawanda Angel - Last Filed: 05/15/22 01:52> Orientation/consciousness: patient oriented x3 <Tawanda Angel - Last Filed: 05/15/22 01:52> HENMT Head: Yes normocephalic and Yes atraumatic <Tawanda Angel - Last Filed: 05/15/22 01:52> Throat: Yes posterior oropharynx normal <Tawanda Angel - Last Filed: 05/15/22 01:52> Eyes Eyelids: Yes eyelids normal <Tawanda Angel - Last Filed: 05/15/22 01:52> Conjunctivae: conjunctivae normal <Tawanda Sunny - Last Filed: 05/15/22 01:52> Sclerae: sclerae normal < Last Filed: 05/15/22 01:52> Corneas: corneas normal < Last Filed: 05/15/22 01:52> Pupils: Equal, round and reactive pupils present < Last Filed: 05/15/22 01:52> EOM: EOMs intact bilaterally < Last Filed: 05/15/22 01:52> Neck Neck: Yes full ROM < Last Filed: 05/15/22 01:52> Resp Effort & Inspection: normal respiratory effort, able to speak in complete sentences, no audible wheezes and not labored <Tawanda Last Filed: 05/15/22 01:52> Auscultation: clear to auscultation bilaterally < Last Filed: 05/15/22 01:52> Cardio Rate: regular rate < Last Filed: 05/15/22 01:52> Rhythm: regular rhythm < Last Filed: 05/15/22 01:52> GI Inspection: Yes distended < Last Filed: 05/15/22 01:52> Palpation (GI): Soft to palpation, not firm, Tenderness to palpation present (GI) in the RLQ, Guarding due to palpation present (GI) in the RLQ and not rigid < Last Filed: 05/15/22 01:52> Auscultation: normoactive bowel sounds < Last Filed: 05/15/22 01:52> Skin General skin exam: no rashes or lesions noted and elasticity normal < Last Filed: 05/15/22 01:52> Neuro General: patient oriented x3 <Tawanda O Last Filed: 05/15/22 01:52> Cranial nerves: Yes CN's II-XII intact bilaterally, Yes Equal, round and reactive pupils present and Yes Bilaterally intact EOM present <Tawanda ConklinSunny - Last Filed: 05/15/22 01:52> Cognition (Neuro): normal cognition <Tawanda OrellanaCelineSunny - Last Filed: 05/15/22 01:52> Extrem Other: Moving all extremities well without any obvious deformities <Tawanda RubinSw[place] - Last Filed: 05/15/22 01:52> Procedures EJ/Peripheral Line Arm L: Time Out Performed: Yes <Tawanda RubinSunny - Last Filed: 05/15/22 01:52> Skin Cleansed in Sterile Fashion: Yes <Tawanda ORivka - Last Filed: 05/15/22 01:52> Size (gauge): 18 <Tawanda Angel - Last Filed: 05/15/22 01:52> IV Secured and Dressing Applied: Yes <Tawanda Stanley - Last Filed: 05/15/22 01:52> Patient Tolerated Procedure: well and no complications <Tawanda ConklinSunny - Last Filed: 05/15/22 01:52> Additional Comments: Ultrasound guidance was utilized <Tawanda EstebanRivka - Last Filed: 05/15/22 01:52> Course Course Course Narrative: RME--76yo F w/PMHx recurrent UTI recently admitted to our facility for pyelonephritis discharge on 05/01 complicated by suspected C diff, evaluated in our ED yesterday diagnosed with IBS, presenting to the ED c/o worsening RLQ abdominal pain since yesterday with nausea. Reports dark stool, is passing flatus, last BM at 3PM. Labs unremarkable yesterday. CT showing possible ileus or low-grade partial SBO. Patient in wheelchair, appears uncomfortable, Abd soft diffusely ttp, no rebound or guarding Labs, UA ordered <NIELS Campbell - Last Filed: 05/14/22 15:11> Reevaluation(s) Reevaluation #1: Patient continued to have severe right lower abdominal pain. We will medicate the patient with Dilaudid 1 mg IV. Will discuss with hospitalist for admission. Patient's KUB today does not show obstructive bowel pattern <Tawanda Angel - Last Filed: 05/15/22 01:52> Time: 01:47 <Tawanda Angel - Last Filed: 05/15/22 01:52> Reevaluation #2: I was asked to see the patient by Dr. Guzman. I did interview the patient examine her. The patient is having significant abdominal cramping and did have significant right lower quadrant and diffuse abdominal tenderness. At this time I do not think that she can go home and that if she was discharged she would return again because her symptoms have not improved. Her a another dose of Dilaudid 1 mg IV and ordered maintenance fluid lactated Ringer's at 125 mL/hr. I did discuss my concerns with Dr. Guzman and the patient will be admitted to the hospitalist service. <Peter Grijalva MD - Last Filed: 05/15/22 03:17> Time: 03:16 <Peter Grijalva MD - Last Filed: 05/15/22 03:17> Medical Decision Making Medical Decision Making MDM Narrative: 76-year-old female who re-presented with worsening abdominal pain. She had negative C diff and stool studies yesterday. She CT scan that showed ileus versus partial small-bowel obstruction. She complains of 10/10 pain. The patient has CT scan of the abdomen pelvis on 04/23/2022 and again on 05/13/2022. I would prefer not to CT scan the patient a 3rd time in less than 1 month. Will start with a KUB to evaluate for obstructive bowel pattern. Clinically, the patient has worsening abdominal pain and likely has a partial small-bowel obstruction. Will treat with fluids, morphine, Zofran. <Tawanda Angel - Last Filed: 05/15/22 01:52> Differential Diagnosis Abdominal pain Ileus UTI Obstructive uropathy Inguinal hernia Partial small-bowel obstruction <Tawanda Angel - Last Filed: 05/15/22 01:52> Lab Data [facility] Lab Attestation statement: I reviewed the patient's lab results. <Tawanda Angel - Last Filed: 05/15/22 01:52> Mild anemia consistent the patient's baseline no significant electrolyte abnormalities <Tawanda Angel - Last Filed: 05/15/22 01:52> Result Diagrams: 05/14/22 15:45 05/14/22 15:45 <NIELS Campbell - Last Filed: 05/14/22 15:11> Labs: Lab Results 05/14/22 05/14/22 05/14/22 Range/Units 15:45 15:45 15:49 WBC 7.4 (4.8-10.8) X10*3/uL RBC 4.59 (4.20-5.50) X10*6/uL Hgb 11.3 L (12.0-16.0) g/dl Hct 35.8 L (37.0-47.0) % MCV 78.0 L (80.0-98.0) fL MCH 24.6 L (27.0-33.0) pg MCHC 31.6 (31.0-35.0) g/dl RDW 16.7 H (11.0-16.0) % Plt Count 261 (160-400) X10*3/uL MPV 9.1 L (9.4-12.3) fL Immature Gran % (Auto) 0.3 (0.0-0.4) % Neut % (Auto) 64.0 (45-73) % Lymph % (Auto) 27.5 (20-40) % [place] % (Auto) 4.3 (2-11) % Eos % (Auto) 3.4 (0-4) % Baso % (Auto) 0.5 (0-2) % Lymph # (Auto) 2.0 (1.2-4.9) X10*3/uL [place] # (Auto) 0.3 (0.1-1.2) X10*3/uL Eos # (Auto) 0.3 (0.0-0.4) X10*3/uL Baso # (Auto) 0.0 (0.0-0.2) X10*3/uL Abs Immat Gran (auto) 0.02 (0.00-0.03) X10*3/uL Absolute Neuts (auto) 4.7 (2.0-8.3) x10*3/uL Absolute Nucleated RBC 0.000 (0.0-0.012) X10*3/uL Nucleated RBC % (auto) 0.0 (0.0-0.2) /100WBC PT (10.0-13.1) SEC INR (0.9-1.1) APTT (26.0-36.4) SEC Sodium 136 (135-145) mmol/L Potassium 4.6 (3.3-5.1) mmol/L Chloride 105 (96-108) mmol/L Carbon Dioxide 22 (22-29) mmol/L Anion Gap 14 (12-20) BUN 21 H (9-16) mg/dL Creatinine 1.14 (0.5-1.4) mg/dL Estim Creat Clear Calc 42.5 Estimated GFR 46 Random Glucose 252 H (60-115) mg/dL Lactic Acid (0.5-2.0) mmol/L Calcium 8.2 L (8.4-10.2) mg/dL Magnesium 2.0 (1.6-2.6) mg/dL Total Bilirubin 0.3 (0.0-1.0) mg/dL Direct Bilirubin < 0.2 (0.0-0.5) mg/dL AST 31 (5-31) U/L ALT 18 (0-31) U/L Alkaline Phosphatase 143 H (39-117) U/L Total Protein 6.0 L (6.5-8.0) g/dL Albumin 3.8 (3.5-5.0) g/dL Lipase 24 (8-78) U/L Urine Color Yellow Urine Appearance Clear Urine pH 6.5 (5.0-9.0) Ur Specific [place] 1.025 (1.005-1.025) Urine Protein Trace (Neg-Trace) mg/dL Urine Glucose (UA) 500 H (Negative) mg/dL Urine Ketones Negative (Negative) mg/dL Urine Blood Negative (Negative) Urine Nitrite Negative (Negative) Ur Leukocyte Esterase Negative (Negative) Blood Type Antibody Screen 05/15/22 05/15/22 05/15/22 Range/Units 00:55 00:55 00:55 WBC (4.8-10.8) X10*3/uL RBC (4.20-5.50) X10*6/uL Hgb (12.0-16.0) g/dl Hct (37.0-47.0) % MCV (80.0-98.0) fL MCH (27.0-33.0) pg MCHC (31.0-35.0) g/dl RDW (11.0-16.0) % Plt Count (160-400) X10*3/uL MPV (9.4-12.3) fL Immature Gran % (Auto) (0.0-0.4) % Neut % (Auto) (45-73) % Lymph % (Auto) (20-40) % [place] % (Auto) (2-11) % Eos % (Auto) (0-4) % Baso % (Auto) (0-2) % Lymph # (Auto) (1.2-4.9) X10*3/uL [place] # (Auto) (0.1-1.2) X10*3/uL Eos # (Auto) (0.0-0.4) X10*3/uL Baso # (Auto) (0.0-0.2) X10*3/uL Abs Immat Gran (auto) (0.00-0.03) X10*3/uL Absolute Neuts (auto) (2.0-8.3) x10*3/uL Absolute Nucleated RBC (0.0-0.012) X10*3/uL Nucleated RBC % (auto) (0.0-0.2) /100WBC PT 11.0 (10.0-13.1) SEC INR 1.0 (0.9-1.1) APTT 30.7 (26.0-36.4) SEC Sodium (135-145) mmol/L Potassium (3.3-5.1) mmol/L Chloride (96-108) mmol/L Carbon Dioxide (22-29) mmol/L Anion Gap (12-20) BUN (9-16) mg/dL Creatinine (0.5-1.4) mg/dL Estim Creat Clear Calc Estimated GFR Random Glucose (60-115) mg/dL Lactic Acid 0.7 (0.5-2.0) mmol/L Calcium (8.4-10.2) mg/dL Magnesium (1.6-2.6) mg/dL Total Bilirubin (0.0-1.0) mg/dL Direct Bilirubin (0.0-0.5) mg/dL AST (5-31) U/L ALT (0-31) U/L Alkaline Phosphatase (39-117) U/L Total Protein (6.5-8.0) g/dL Albumin (3.5-5.0) g/dL Lipase (8-78) U/L Urine Color Urine Appearance Urine pH (5.0-9.0) Ur Specific [place] (1.005-1.025) Urine Protein (Neg-Trace) mg/dL Urine Glucose (UA) (Negative) mg/dL Urine Ketones (Negative) mg/dL Urine Blood (Negative) Urine Nitrite (Negative) Ur Leukocyte Esterase (Negative) Blood Type O Positive Antibody Screen NEGATIVE <NIELS Campbell - Last Filed: 05/14/22 15:11> Lab Results 05/14/22 05/14/22 05/14/22 Range/Units 15:45 15:45 15:49 WBC 7.4 (4.8-10.8) X10*3/uL RBC 4.59 (4.20-5.50) X10*6/uL Hgb 11.3 L (12.0-16.0) g/dl Hct 35.8 L (37.0-47.0) % MCV 78.0 L (80.0-98.0) fL MCH 24.6 L (27.0-33.0) pg MCHC 31.6 (31.0-35.0) g/dl RDW 16.7 H (11.0-16.0) % Plt Count 261 (160-400) X10*3/uL MPV 9.1 L (9.4-12.3) fL Immature Gran % (Auto) 0.3 (0.0-0.4) % Neut % (Auto) 64.0 (45-73) % Lymph % (Auto) 27.5 (20-40) % [place] % (Auto) 4.3 (2-11) % Eos % (Auto) 3.4 (0-4) % Baso % (Auto) 0.5 (0-2) % Lymph # (Auto) 2.0 (1.2-4.9) X10*3/uL [place] # (Auto) 0.3 (0.1-1.2) X10*3/uL Eos # (Auto) 0.3 (0.0-0.4) X10*3/uL Baso # (Auto) 0.0 (0.0-0.2) X10*3/uL Abs Immat Gran (auto) 0.02 (0.00-0.03) X10*3/uL Absolute Neuts (auto) 4.7 (2.0-8.3) x10*3/uL Absolute Nucleated RBC 0.000 (0.0-0.012) X10*3/uL Nucleated RBC % (auto) 0.0 (0.0-0.2) /100WBC PT (10.0-13.1) SEC INR (0.9-1.1) APTT (26.0-36.4) SEC Sodium 136 (135-145) mmol/L Potassium 4.6 (3.3-5.1) mmol/L Chloride 105 (96-108) mmol/L Carbon Dioxide 22 (22-29) mmol/L Anion Gap 14 (12-20) BUN 21 H (9-16) mg/dL Creatinine 1.14 (0.5-1.4) mg/dL Estim Creat Clear Calc 42.5 Estimated GFR 46 Random Glucose 252 H (60-115) mg/dL Lactic Acid (0.5-2.0) mmol/L Calcium 8.2 L (8.4-10.2) mg/dL Magnesium 2.0 (1.6-2.6) mg/dL Total Bilirubin 0.3 (0.0-1.0) mg/dL Direct Bilirubin < 0.2 (0.0-0.5) mg/dL AST 31 (5-31) U/L ALT 18 (0-31) U/L Alkaline Phosphatase 143 H (39-117) U/L Total Protein 6.0 L (6.5-8.0) g/dL Albumin 3.8 (3.5-5.0) g/dL Lipase 24 (8-78) U/L Urine Color Yellow Urine Appearance Clear Urine pH 6.5 (5.0-9.0) Ur Specific [place] 1.025 (1.005-1.025) Urine Protein Trace (Neg-Trace) mg/dL Urine Glucose (UA) 500 H (Negative) mg/dL Urine Ketones Negative (Negative) mg/dL Urine Blood Negative (Negative) Urine Nitrite Negative (Negative) Ur Leukocyte Esterase Negative (Negative) Blood Type Antibody Screen 05/15/22 05/15/22 05/15/22 Range/Units 00:55 00:55 00:55 WBC (4.8-10.8) X10*3/uL RBC (4.20-5.50) X10*6/uL Hgb (12.0-16.0) g/dl Hct (37.0-47.0) % MCV (80.0-98.0) fL MCH (27.0-33.0) pg MCHC (31.0-35.0) g/dl RDW (11.0-16.0) % Plt Count (160-400) X10*3/uL MPV (9.4-12.3) fL Immature Gran % (Auto) (0.0-0.4) % Neut % (Auto) (45-73) % Lymph % (Auto) (20-40) % [place] % (Auto) (2-11) % Eos % (Auto) (0-4) % Baso % (Auto) (0-2) % Lymph # (Auto) (1.2-4.9) X10*3/uL [place] # (Auto) (0.1-1.2) X10*3/uL Eos # (Auto) (0.0-0.4) X10*3/uL Baso # (Auto) (0.0-0.2) X10*3/uL Abs Immat Gran (auto) (0.00-0.03) X10*3/uL Absolute Neuts (auto) (2.0-8.3) x10*3/uL Absolute Nucleated RBC (0.0-0.012) X10*3/uL Nucleated RBC % (auto) (0.0-0.2) /100WBC PT 11.0 (10.0-13.1) SEC INR 1.0 (0.9-1.1) APTT 30.7 (26.0-36.4) SEC Sodium (135-145) mmol/L Potassium (3.3-5.1) mmol/L Chloride (96-108) mmol/L Carbon Dioxide (22-29) mmol/L Anion Gap (12-20) BUN (9-16) mg/dL Creatinine (0.5-1.4) mg/dL Estim Creat Clear Calc Estimated GFR Random Glucose (60-115) mg/dL Lactic Acid 0.7 (0.5-2.0) mmol/L Calcium (8.4-10.2) mg/dL Magnesium (1.6-2.6) mg/dL Total Bilirubin (0.0-1.0) mg/dL Direct Bilirubin (0.0-0.5) mg/dL AST (5-31) U/L ALT (0-31) U/L Alkaline Phosphatase (39-117) U/L Total Protein (6.5-8.0) g/dL Albumin (3.5-5.0) g/dL Lipase (8-78) U/L Urine Color Urine Appearance Urine pH (5.0-9.0) Ur Specific [place] (1.005-1.025) Urine Protein (Neg-Trace) mg/dL Urine Glucose (UA) (Negative) mg/dL Urine Ketones (Negative) mg/dL Urine Blood (Negative) Urine Nitrite (Negative) Ur Leukocyte Esterase (Negative) Blood Type O Positive Antibody Screen NEGATIVE <Tawanda Angel - Last Filed: 05/15/22 01:52> Lab Results 05/14/22 05/14/22 05/14/22 Range/Units 15:45 15:45 15:49 WBC 7.4 (4.8-10.8) X10*3/uL RBC 4.59 (4.20-5.50) X10*6/uL Hgb 11.3 L (12.0-16.0) g/dl Hct 35.8 L (37.0-47.0) % MCV 78.0 L (80.0-98.0) fL MCH 24.6 L (27.0-33.0) pg MCHC 31.6 (31.0-35.0) g/dl RDW 16.7 H (11.0-16.0) % Plt Count 261 (160-400) X10*3/uL MPV 9.1 L (9.4-12.3) fL Immature Gran % (Auto) 0.3 (0.0-0.4) % Neut % (Auto) 64.0 (45-73) % Lymph % (Auto) 27.5 (20-40) % [place] % (Auto) 4.3 (2-11) % Eos % (Auto) 3.4 (0-4) % Baso % (Auto) 0.5 (0-2) % Lymph # (Auto) 2.0 (1.2-4.9) X10*3/uL [place] # (Auto) 0.3 (0.1-1.2) X10*3/uL Eos # (Auto) 0.3 (0.0-0.4) X10*3/uL Baso # (Auto) 0.0 (0.0-0.2) X10*3/uL Abs Immat Gran (auto) 0.02 (0.00-0.03) X10*3/uL Absolute Neuts (auto) 4.7 (2.0-8.3) x10*3/uL Absolute Nucleated RBC 0.000 (0.0-0.012) X10*3/uL Nucleated RBC % (auto) 0.0 (0.0-0.2) /100WBC PT (10.0-13.1) SEC INR (0.9-1.1) APTT (26.0-36.4) SEC Sodium 136 (135-145) mmol/L Potassium 4.6 (3.3-5.1) mmol/L Chloride 105 (96-108) mmol/L Carbon Dioxide 22 (22-29) mmol/L Anion Gap 14 (12-20) BUN 21 H (9-16) mg/dL Creatinine 1.14 (0.5-1.4) mg/dL Estim Creat Clear Calc 42.5 Estimated GFR 46 Random Glucose 252 H (60-115) mg/dL Lactic Acid (0.5-2.0) mmol/L Calcium 8.2 L (8.4-10.2) mg/dL Magnesium 2.0 (1.6-2.6) mg/dL Total Bilirubin 0.3 (0.0-1.0) mg/dL Direct Bilirubin < 0.2 (0.0-0.5) mg/dL AST 31 (5-31) U/L ALT 18 (0-31) U/L Alkaline Phosphatase 143 H (39-117) U/L Total Protein 6.0 L (6.5-8.0) g/dL Albumin 3.8 (3.5-5.0) g/dL Lipase 24 (8-78) U/L Urine Color Yellow Urine Appearance Clear Urine pH 6.5 (5.0-9.0) Ur Specific [place] 1.025 (1.005-1.025) Urine Protein Trace (Neg-Trace) mg/dL Urine Glucose (UA) 500 H (Negative) mg/dL Urine Ketones Negative (Negative) mg/dL Urine Blood Negative (Negative) Urine Nitrite Negative (Negative) Ur Leukocyte Esterase Negative (Negative) Blood Type Antibody Screen 05/15/22 05/15/22 05/15/22 Range/Units 00:55 00:55 00:55 WBC (4.8-10.8) X10*3/uL RBC (4.20-5.50) X10*6/uL Hgb (12.0-16.0) g/dl Hct (37.0-47.0) % MCV (80.0-98.0) fL MCH (27.0-33.0) pg MCHC (31.0-35.0) g/dl RDW (11.0-16.0) % Plt Count (160-400) X10*3/uL MPV (9.4-12.3) fL Immature Gran % (Auto) (0.0-0.4) % Neut % (Auto) (45-73) % Lymph % (Auto) (20-40) % [place] % (Auto) (2-11) % Eos % (Auto) (0-4) % Baso % (Auto) (0-2) % Lymph # (Auto) (1.2-4.9) X10*3/uL [place] # (Auto) (0.1-1.2) X10*3/uL Eos # (Auto) (0.0-0.4) X10*3/uL Baso # (Auto) (0.0-0.2) X10*3/uL Abs Immat Gran (auto) (0.00-0.03) X10*3/uL Absolute Neuts (auto) (2.0-8.3) x10*3/uL Absolute Nucleated RBC (0.0-0.012) X10*3/uL Nucleated RBC % (auto) (0.0-0.2) /100WBC PT 11.0 (10.0-13.1) SEC INR 1.0 (0.9-1.1) APTT 30.7 (26.0-36.4) SEC Sodium (135-145) mmol/L Potassium (3.3-5.1) mmol/L Chloride (96-108) mmol/L Carbon Dioxide (22-29) mmol/L Anion Gap (12-20) BUN (9-16) mg/dL Creatinine (0.5-1.4) mg/dL Estim Creat Clear Calc Estimated GFR Random Glucose (60-115) mg/dL Lactic Acid 0.7 (0.5-2.0) mmol/L Calcium (8.4-10.2) mg/dL Magnesium (1.6-2.6) mg/dL Total Bilirubin (0.0-1.0) mg/dL Direct Bilirubin (0.0-0.5) mg/dL AST (5-31) U/L ALT (0-31) U/L Alkaline Phosphatase (39-117) U/L Total Protein (6.5-8.0) g/dL Albumin (3.5-5.0) g/dL Lipase (8-78) U/L Urine Color Urine Appearance Urine pH (5.0-9.0) Ur Specific [place] (1.005-1.025) Urine Protein (Neg-Trace) mg/dL Urine Glucose (UA) (Negative) mg/dL Urine Ketones (Negative) mg/dL Urine Blood (Negative) Urine Nitrite (Negative) Ur Leukocyte Esterase (Negative) Blood Type O Positive Antibody Screen NEGATIVE <Peter Grijalva MD - Last Filed: 05/15/22 03:17> Medications Administered Discontinued Medications Generic Name Dose Route Start Last Admin Trade Name Freq PRN Reason Stop Dose Admin Hydromorphone HCl 1 mg 05/15/22 01:48 05/15/22 02:11 Hydromorphone Hcl 1 Mg/Ml Syringe IVPUSH 05/15/22 01:49 1 mg ONCE ONE Administration Protocol Sodium Chloride 1,000 mls @ 999 mls/hr 05/15/22 00:15 05/15/22 02:37 Ns IV 05/15/22 01:15 Infused .Q1H1M ZARA Infusion Morphine Sulfate 4 mg 05/15/22 00:11 05/15/22 01:11 Morphine Sulfate 4 Mg/Ml Cartridge IVPUSH 05/15/22 00:12 4 mg ONCE ONE Administration Protocol Ondansetron HCl 4 mg 05/15/22 00:11 05/15/22 01:09 Ondansetron Hcl 4 Mg/2 Ml Vial IVPUSH 05/15/22 00:12 4 mg ONCE ONE Administration <NIELS Campbell - Last Filed: 05/14/22 15:11> Medications Administered Discontinued Medications Generic Name Dose Route Start Last Admin Trade Name Freq PRN Reason Stop Dose Admin Hydromorphone HCl 1 mg 05/15/22 01:48 05/15/22 02:11 Hydromorphone Hcl 1 Mg/Ml Syringe IVPUSH 05/15/22 01:49 1 mg ONCE ONE Administration Protocol Sodium Chloride 1,000 mls @ 999 mls/hr 05/15/22 00:15 05/15/22 02:37 Ns IV 05/15/22 01:15 Infused .Q1H1M ZARA Infusion Morphine Sulfate 4 mg 05/15/22 00:11 05/15/22 01:11 Morphine Sulfate 4 Mg/Ml Cartridge IVPUSH 05/15/22 00:12 4 mg ONCE ONE Administration Protocol Ondansetron HCl 4 mg 05/15/22 00:11 05/15/22 01:09 Ondansetron Hcl 4 Mg/2 Ml Vial IVPUSH 05/15/22 00:12 4 mg ONCE ONE Administration <Tawanda Angel - Last Filed: 05/15/22 01:52> Medications Administered Discontinued Medications Generic Name Dose Route Start Last Admin Trade Name August PRN Reason Stop Dose Admin Hydromorphone HCl 1 mg 05/15/22 01:48 05/15/22 02:11 Hydromorphone Hcl 1 Mg/Ml Syringe IVPUSH 05/15/22 01:49 1 mg ONCE ONE Administration Protocol Sodium Chloride 1,000 mls @ 999 mls/hr 05/15/22 00:15 05/15/22 02:37 Ns IV 05/15/22 01:15 Infused .Q1H1M ZARA Infusion Morphine Sulfate 4 mg 05/15/22 00:11 05/15/22 01:11 Morphine Sulfate 4 Mg/Ml Cartridge IVPUSH 05/15/22 00:12 4 mg ONCE ONE Administration Protocol Ondansetron HCl 4 mg 05/15/22 00:11 05/15/22 01:09 Ondansetron Hcl 4 Mg/2 Ml Vial IVPUSH 05/15/22 00:12 4 mg ONCE ONE Administration <Peter Grijalva MD - Last Filed: 05/15/22 03:17> Discharge Plan Discharge Clinical Impression: Abdominal pain <NIELS Campbell - Last Filed: 05/14/22 15:11> Patient Disposition: Admitted As Inpatient <NIELS Campbell - Last Filed: 05/14/22 15:11>
[2022-05-14 15:08] VITALS: BP 153/71; PULSE 87; RESP 18; TEMP 36.6; O2SAT 98; BMI 26.6
[2022-05-14 15:51] LABS: MANUAL DIFF FLAG NO
[2022-05-14 15:53] LABS: Basophils Percent Auto 0.5 % (0-2); Eosinophils Absolute Auto 0.3 X10*3/uL (0.0-0.4); Eosinophils Percent Auto 3.4 % (0-4); Hematocrit 35.8 % (37.0-47.0); Hemoglobin 11.3 g/dl (12.0-16.0); Imm Gran Abs Auto 0.02 X10*3/uL (0.00-0.03); Imm Gran Pct Auto 0.3 % (0.0-0.4); Lymphocytes Percent Auto 27.5 % (20-40); Mean Corpuscular HGB Conc 31.6 g/dl (31.0-35.0); Mean Corpuscular Hemoglobin 24.6 pg (27.0-33.0); Mean Platelet Volume 9.1 fL (9.4-12.3); Monocytes Absolute Auto 0.3 X10*3/uL (0.1-1.2); Monocytes Percent Auto 4.3 % (2-11); Neutrophils Absolute Auto 4.7 x10*3/uL (2.0-8.3); Platelet Count 261 X10*3/uL (160-400); Red Blood Count 4.59 X10*6/uL (4.20-5.50); Red Cell Distribution Width 16.7 % (11.0-16.0); White Blood Count 7.4 X10*3/uL (4.8-10.8)
[2022-05-14 16:05] LABS: Appearance Urine Clear; Color Urine Yellow; Glucose Urine UA 500 mg/dL (Negative); Leukocyte Esterase Urine Negative (Negative); Nitrite Urine Negative (Negative); PH 6.5 (5.0-9.0); Specific Gravity - Urine 1.025 (1.005-1.025); Urine Blood Negative (Negative); Urine Ketones Negative (Negative); Urine Protein Trace mg/dL (Neg-Trace)
[2022-05-14 16:07] LABS: Alanine Aminotransferase 18 U/L (0-31); Albumin Level 3.8 g/dL (3.5-5.0); Alkaline Phosphatase 143 U/L (39-117); Anion Gap 14 (12-20); Aspartate Amino Transferase 31 U/L (5-31); Bilirubin Direct < 0.2 mg/dL (0.0-0.5); Bilirubin Total 0.3 mg/dL (0.0-1.0); Blood Urea Nitrogen 21 mg/dL (9-16); Calcium 8.2 mg/dL (8.4-10.2); Carbon Dioxide 22 mmol/L (22-29); Chloride 105 mmol/L (96-108); Creatinine Clr Calc Pharmacy 42.5; Estimated Glomerular Filt Rate 46; Glucose Random 252 mg/dL (60-115); Lipase 24 U/L (8-78); Potassium 4.6 mmol/L (3.3-5.1); Sodium 136 mmol/L (135-145)
[2022-05-14 22:08] VITALS: BP 178/77; PULSE 73; RESP 18; TEMP 36.6; O2SAT 98
[2022-05-14 23:34] VITALS: BP 196/80; PULSE 72; RESP 16; TEMP 36.9; O2SAT 99
[2022-05-15] VITALS (13 sets, daily range): BP systolic 137–190; BP diastolic 56–88; PULSE 68–79; RESP 16–18; TEMP 36.2–36.9; O2SAT 94–99
[2022-05-15] MEDS: ondansetron HCL 4 MG/2 ML VIAL IVPUSH ×2 (01:09→20:04)
[2022-05-15 01:11] LABS: Partial Thromboplastin Time 30.7 SEC (26.0-36.4)
[2022-05-15] MEDS: Morphine Sulfate 4 MG/ML CARTRIDGE IVPUSH ×5 (01:11→21:26)
[2022-05-15] MEDS: 0.9 % Sodium Chloride 1,000 ML 999 ML IV (01:13)
[2022-05-15 01:14] LABS: Lactic Acid 0.7 mmol/L (0.5-2.0)
[2022-05-15] MEDS: HYDROmorphone HCl 1 MG/ML SYRINGE IVPUSH ×2 (02:11→03:30)
--- NOTE | 2022-05-15 02:44 | PC.NURSE ---
Pt A&Ox4, reports 10/10 RLQ ABD pain, states its radiating to R leg and upper R flank. States it feels like shooting and pressure feeling. IV attempt unsuccessful, provider Sneha Angel notified, ultrasound guided IV placed by provider to L upper arm. Pt reprots tenderness to touch to RLQ, no ABD distention noted, + Bowel sounds x4. Medicated per APR, reports effectiveness to pain med given. Pt ambulated to BR with steady gait.
--- NOTE | 2022-05-15 03:15 | P.HPHOSP_ITS ---
History of Present Illness Date of Service: 05/15/22 Chief Complaint: Abdominal Pain This is 76-year-old female with pertinent history of mood disorder, insulin- dependent diabetes mellitus, essential hypertension, hypothyroidism who presents to the emergency department for evaluation of abdominal discomfort. 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 Patient was discharged on 05/01. Patient states her diarrhea is getting better but had significant abdominal discomfort last night. She was seen in the ER and was sent home after CT abdomen/pelvis which showed potentially ileus versus low- grade partial SBO. Patient presented to the ER again today for similar complaints and states her abdominal pain is worse. It is located in the right lower quadrant, radiating to the groin occasionally, without any relieving factors. Is having loose stools but denies fever, chills, nausea, vomiting. Patient denies chest discomfort, palpitations, shortness of breath, changes in urinary habits. Review of Systems Constitutional: Constitutional: Reports no additional constitutional complai nts Cardiovascular: Cardiovascular: Reports no additional cardiovascular complaints Respiratory: Respiratory: Reports no additional respiratory complaints Gastrointestinal: Gastrointestinal: Reports abdominal pain and Reports loose stools Genitourinary: Genitourinary: Reports no additional female genitourinary complaints Musculoskeletal: Musculoskeletal: Reports no additional musculoskeletal complaints [facility] Medical History Chronic kidney disease Hematuria Hx: UTI (urinary tract infection) Incomplete emptying of bladder Pyuria Urethral caruncle Pertinent family history: No family history of CAD Surgical History History of total hysterectomy Social History Household Members: None Housing: Assisted Living Facility Do you presently have visiting nurse or other home services: Yes Alcohol intake: current Alcohol intake frequency: holidays/special occasions only Patient Tobacco Use Status: Never used Tobacco Smoked in Last 30 Days: No Use of substances other than those prescribed or required for medical reasons: No Advance Directives: Yes Advance Directives on File: Yes Advance Directives Date on File: 04/24/22 service: No Current occupational status: retired Meds Allergies Allergy/AdvReac Type Severity Reaction Status Date / Time droperidol [From INAPSINE] Allergy Severe HYPERACTIVE Verified 05/14/22 11:33 doxycycline [DOXYCYCLINE] Allergy Intermediate N/V/DIARRHE Verified 05/14/22 11:33 A latex [LATEX] Allergy Intermediate RASH Verified 05/14/22 11:33 amlodipine Allergy Unknown Unknown Verified 05/14/22 11:33 cephalexin [Keflex] Allergy Unknown Unknown Verified 05/14/22 11:33 ciprofloxacin [Cipro] Allergy Unknown Unknown Verified 05/14/22 11:33 levofloxacin [Levaquin] Allergy Unknown Unknown Verified 05/14/22 11:33 sulfamethoxazole AdvReac Mild GI UPSET Verified 05/14/22 11:33 [From BACTRIM] trimethoprim [From BACTRIM] AdvReac Mild GI UPSET Verified 05/14/22 11:33 Active Medications: Current Medications Pharmacy Consult (Consult Rx Perform Med Rec) 1 each MISCELLANE ONCE PRN PRN Reason: Consult order Home Medications Medication Instructions Recorded Confirmed Last Taken Type atorvastatin 80 mg tablet 80 mg PO DAILY 04/17/20 05/14/22 04/23/22 History dicyclomine 10 mg capsule 20 mg PO TID 04/17/20 05/14/22 04/23/22 History fluoxetine 40 mg capsule 40 mg PO DAILY 04/17/20 05/14/22 04/23/22 History insulin glargine 100 unit/mL (3 20 unit subcut BEDTIME 04/17/20 05/14/22 04/21/22 History mL) subcutaneous pen levothyroxine 100 mcg tablet 100 mcg PO MOTUWETHFRSA 04/17/20 05/14/22 04/23/22 History pantoprazole 40 mg tablet,delayed 40 mg PO DAILY 05/30/20 05/14/22 04/23/22 H istory release pen needle, diabetic 31 gauge x #1,200 ea 04/03/21 05/14/22 Unknown History 07/14 (BD Ultra-Fine Short Pen Needle) acetaminophen 325 mg tablet 650 mg PO Q6H PRN Pain 04/24/22 05/14/22 Unknown History insulin lispro 100 unit/mL 0 sliding scale dose subcut QIDACHS 04/24/22 05/14/22 Unknown History subcutaneous pen (Humalog KwikPen (U-100) Insulin) metoprolol succinate 25 mg 25 mg PO DAILY 05/14/22 05/14/22 Unknown History tablet,extended release 24 hr atorvastatin 80 mg tablet 1 tab PO DAILY 05/15/22 05/15/22 Unknown History carvedilol 6.25 mg tablet 1 tab PO BID 05/15/22 05/15/22 Unknown History fluoxetine 40 mg capsule 1 cap PO DAILY 05/15/22 05/15/22 Unknown History gabapentin 300 mg capsule 2 cap PO BID 05/15/22 05/15/22 Unknown History insulin glargine 100 unit/mL (3 32 unit subcut DAILY 05/15/22 05/15/22 Unknown History mL) subcutaneous pen (Lantus Solostar U-100 Insulin) levothyroxine 100 mcg tablet 1 tab PO 6XW 05/15/22 05/15/22 Unknown History mirabegron 25 mg tablet,extended 2 tab PO DAILY 05/15/22 05/15/22 Unknown History release 24 hr (Myrbetriq) pantoprazole 40 mg tablet,delayed 1 tab PO DAILY 05/15/22 05/15/22 Unknown History release Physical Exam Vital Signs and Narrative: Vital Signs: Last Vital Signs Temp 98.5 F 05/14/22 23:34 Pulse 69 05/15/22 02:09 Resp 18 05/15/22 02:11 BP 162/57 H 05/15/22 02:50 Pulse Ox 97 05/15/22 02:09 O2 Del Method 05/15/22 02:09 BMI result Body Mass Index 26.6 Middle-aged female lying in bed in mild distress Neck supple, no JVD Regular rate and rhythm, S1-S2 heard Regular breath sounds bilaterally, no wheezing or crackles appreciated Abdomen with generalized abdominal tenderness, no guarding, no rigidity, no rebound tenderness Patient is awake, alert and oriented to self, place, time and person ; no focal motor deficit Psych: Normal mood No pedal edema Results Labs 05/14/22 15:45 05/14/22 15:45 Labs: Laboratory Results - last 24 hr 05/14/22 05/14/22 05/14/22 15:45 15:45 15:49 MCV 78.0 L MCH 24.6 L MCHC 31.6 RDW 16.7 H Plt Count 261 MPV 9.1 L Immature Gran % (Auto) 0.3 Neut % (Auto) 64.0 Lymph % (Auto) 27.5 [place] % (Auto) 4.3 Eos % (Auto) 3.4 Baso % (Auto) 0.5 Lymph # (Auto) 2.0 [place] # (Auto) 0.3 Eos # (Auto) 0.3 Baso # (Auto) 0.0 Abs Immat Gran (auto) 0.02 Absolute Neuts (auto) 4.7 Absolute Nucleated RBC 0.000 Nucleated RBC % (auto) 0.0 PT INR APTT Anion Gap 14 Estim Creat Clear Calc 42.5 Estimated GFR 46 Random Glucose 252 H Lactic Acid Calcium 8.2 L Magnesium 2.0 Total Bilirubin 0.3 Direct Bilirubin < 0.2 AST 31 ALT 18 Alkaline Phosphatase 143 H Total Protein 6.0 L Albumin 3.8 Lipase 24 Urine Color Yellow Urine Appearance Clear Urine pH 6.5 Ur Specific [place] 1.025 Urine Protein Trace Urine Glucose (UA) 500 H Urine Ketones Negative Urine Blood Negative Urine Nitrite Negative Ur Leukocyte Esterase Negative Blood Type Antibody Screen 05/15/22 05/15/22 05/15/22 00:55 00:55 00:55 MCV MCH MCHC RDW Plt Count MPV Immature Gran % (Auto) Neut % (Auto) Lymph % (Auto) [place] % (Auto) Eos % (Auto) Baso % (Auto) Lymph # (Auto) [place] # (Auto) Eos # (Auto) Baso # (Auto) Abs Immat Gran (auto) Absolute Neuts (auto) Absolute Nucleated RBC Nucleated RBC % (auto) PT 11.0 INR 1.0 APTT 30.7 Anion Gap Estim Creat Clear Calc Estimated GFR Random Glucose Lactic Acid 0.7 Calcium Magnesium Total Bilirubin Direct Bilirubin AST ALT Alkaline Phosphatase Total Protein Albumin Lipase Urine Color Urine Appearance Urine pH Ur Specific [place] Urine Protein Urine Glucose (UA) Urine Ketones Urine Blood Urine Nitrite Ur Leukocyte Esterase Blood Type O Positive Antibody Screen NEGATIVE Imaging Radiologist's Impressions: Impressions KUB X-Ray 05/15/22 01:00 IMPRESSION: No dilated loops of small bowel. Assessment and Plan (1) Abdominal pain: Status: Acute Plan This is 76-year-old female with pertinent history of mood disorder, insulin- dependent diabetes mellitus, essential hypertension, hypothyroidism who presents to the emergency department for evaluation of abdominal discomfort. #. Abdominal pain: Unclear etiology. Abdominal CT dated 05/13 with ileus vs low-grade SBO. No transition point noted and doubt SBO as patient without nausea/vomiting and is having loose stools. GI panel including C diff from 05/13: Negative. Symptomatic treatment for now. Obtaining TSH. Patient refusing repeat CT abdomen/pelvis. May need GI consult plus additional workup if symptoms persist. #. Insulin-dependent diabetes mellitus with hyperglycemia: Initiating Accu- Cheks with sliding scale insulin. Continue home basal regimen #. Hypothyroidism: On Synthroid #. Mood disorder: Continue home mood stabilizers #. Hypertension: Continue home beta-may Med rec pending DVT prophylaxis: Lovenox 40 mg daily Full code Cardiac diet Time Spent With Patient Time: Total time managing care of this patient today ____ minutes. Quality Stroke Does the patient have a stroke diagnosis?: No VTE Prior VTE?: No VTE Risk Level:: Medical - moderate - high VTE Device Contraindication: Treatment Not Indicated VTE Drug Contraindication: N/A - Med Ordered
[2022-05-15] MEDS: Enoxaparin Sodium 40 MG/0.4 ML SYRINGE SUBCUT (03:30)
[2022-05-15] MEDS: Lactated Ringers 1,000 ML 125 ML IVCONT ×3 (03:36→20:03)
[2022-05-15 04:11] LABS: Basophils Absolute Auto 0.1 X10*3/uL (0.0-0.2); Eosinophils Absolute Auto 0.3 X10*3/uL (0.0-0.4); Hematocrit 34.9 % (37.0-47.0); Hemoglobin 10.8 g/dl (12.0-16.0); Imm Gran Abs Auto 0.02 X10*3/uL (0.00-0.03); Imm Gran Pct Auto 0.3 % (0.0-0.4); Lymphocytes Absolute Auto 2.4 X10*3/uL (1.2-4.9); Lymphocytes Percent Auto 33.3 % (20-40); MANUAL DIFF FLAG SCAN; Mean Corpuscular HGB Conc 30.9 g/dl (31.0-35.0); Mean Corpuscular Hemoglobin 24.4 pg (27.0-33.0); Mean Corpuscular Volume 78.8 fL (80.0-98.0); Mean Platelet Volume 9.5 fL (9.4-12.3); Monocytes Absolute Auto 0.5 X10*3/uL (0.1-1.2); Monocytes Percent Auto 6.4 % (2-11); Neutrophils Absolute Auto 3.9 x10*3/uL (2.0-8.3); PLT CLUMP 1; Red Blood Count 4.43 X10*6/uL (4.20-5.50); Red Cell Distribution Width 16.7 % (11.0-16.0); SCAN SMEAR FLAG 1
[2022-05-15 04:28] LABS: White Blood Count 7.1 X10*3/uL (4.8-10.8)
[2022-05-15 04:29] LABS: Anion Gap 14 (12-20); Blood Urea Nitrogen 15 mg/dL (9-16); Calcium 7.8 mg/dL (8.4-10.2); Carbon Dioxide 19 mmol/L (22-29); Chloride 110 mmol/L (96-108); Creatinine Clr Calc Pharmacy 49.5; Estimated Glomerular Filt Rate 55; Glucose Random 150 mg/dL (60-115); Platelet Count 192 X10*3/uL (160-400); Potassium 4.4 mmol/L (3.3-5.1); SLIDE REVIEW VERIFIED; Sodium 139 mmol/L (135-145)
[2022-05-15 04:39] LABS: Thyroid Stimulating Hormone 0.55 uIU/mL (0.32-4.0)
[2022-05-15 04:54] LABS: COVID-19 Test Negative (Negative); IDNOW Serial# 6674DD1D
--- NOTE | 2022-05-15 06:08 | PC.NURSE ---
RN to RN report given. Pt will be transported to room 344 by orthotic technician. Pt aware of plan.
[2022-05-15 07:37] LABS: Glucose, Whole Blood 159 mg/dL (60-115)
[2022-05-15] MEDS: Insulin Lispro 100 UNIT/ML 3 ML VIAL SUBCUT ×2 (08:05→16:55)
[2022-05-15] MEDS: 0.9 % Sodium Chloride Flush 3 ML SYRINGE IVFLUSH (08:05)
[2022-05-15] MEDS: Acetaminophen 325 MG TABLET 650 MG PO ×2 (08:06→19:59)
--- NOTE | 2022-05-15 08:31 | PHA.MEDREC ---
Pharmacy Consult ? Medication Reconciliation Pharmacy has completed the medication reconciliation. Confirmed medications with patient. She confirms that her dose of levothyroxine used to be 6 days per week but that it was recently increased to every day. She also states that she takes her lantus 20 to 32 units daily and her humalog on sliding scale. Also her metoprolol was recently discontinued and replaced with carvedilol.
--- NOTE | 2022-05-15 09:14 | PM.EVENT ---
Event Note Date of Service: 05/15/22 Event Note: pt seen/examined, H and P reviewed. A/P today per h and P Time Spent With Patient Time: Total time managing care of this patient today ____ minutes.
--- NOTE | 2022-05-15 11:07 | MHC.CM.PN ---
Addendum entered by Allison Noble 05/15/22 13:52: PER [facility], PT IS NOT CURRENTLY ACTIVE WITH THEM BUT WILLING TO TAKE BACK ON SERVICES ON DC. Original Note: [facility] DELIVERED PT LIVES IN [place] AT [facility]. USES WALKER/ROLLATOR AT BASELINE. IS ACTIVE WITH [facility], RETURN REFERRAL SENT. +HCP AT HOME, COPY REQUESTED. + COVID [facility] [address] CORRAL DP: HOME WITH RESUMPTION OF [facility]. SISTER IN LAW WILL TRANSPORT. CM WILL CONTINUE TO FOLLOW
[2022-05-15 11:32] LABS: Glucose, Whole Blood 61 mg/dL (60-115)
[2022-05-15 16:39] LABS: Glucose, Whole Blood 255 mg/dL (60-115)
[2022-05-15 20:47] LABS: Glucose, Whole Blood 131 mg/dL (60-115)
[2022-05-16] VITALS: BP 166/78; PULSE 72; RESP 18; TEMP 36.6; O2SAT 95
[2022-05-16] MEDS: Morphine Sulfate 4 MG/ML CARTRIDGE IVPUSH ×4 (01:04→18:00)
[2022-05-16] MEDS: Acetaminophen 325 MG TABLET 650 MG PO ×2 (02:50→22:19)
[2022-05-16] MEDS: Enoxaparin Sodium 40 MG/0.4 ML SYRINGE SUBCUT (02:51)
[2022-05-16] MEDS: carvediloL 6.25 MG TABLET PO ×3 (03:09→19:51)
[2022-05-16 05:12] VITALS: BP 188/73; PULSE 62
--- NOTE | 2022-05-16 06:47 | PC.NURSE ---
Patient with poor IV access. previous IV leaking from insertion site, not rmoved. Can be adjusted and held to administer Morphine, but leaks with IVF. New 22 inserted nextg to previous in left upper arm and is now infiltrated. poor veins, multiple RN attempts.
[2022-05-16 07:37] LABS: Glucose, Whole Blood 171 mg/dL (60-115)
[2022-05-16 07:59] VITALS: BP 150/64; PULSE 65; RESP 18; TEMP 36.6; O2SAT 96
[2022-05-16] MEDS: Insulin Lispro 100 UNIT/ML 3 ML VIAL SUBCUT ×3 (08:20→19:51)
[2022-05-16] MEDS: 0.9 % Sodium Chloride Flush 3 ML SYRINGE IVFLUSH (08:20)
--- NOTE | 2022-05-16 08:34 | P.PNIM_ITS ---
Subjective Subjective Date of Service: 05/16/22 Interval History: still with diarrhea and abdominal pain Physical Exam Vital Signs: Vital Signs: Last Vital Signs Temp 97.9 F 05/16/22 07:59 Pulse 65 05/16/22 07:59 Resp 18 05/16/22 07:59 BP 150/64 H 05/16/22 07:59 Pulse Ox 96 05/16/22 07:59 O2 Del Method 05/16/22 07:59 BMI result Body Mass Index 26.6 Const: Other: General: AO X 3, no acute distress Resp: CTA bilateral CVS: S1,S2,RRR GI: +BS, non specific tenderness Skin: No rash Neuro: motor grossly intact Psych: appropriate affect Objective Data Active Medications Acetaminophen (Acetaminophen 325 Mg Tablet) 650 mg PO Q6H PRN PRN Reason: Pain, Mild (Pain Scale 1-3) Last Admin: 05/16/22 02:50 Dose: 650 mg Documented By: AMBERLY Carvedilol (Carvedilol 6.25 Mg Tablet) 6.25 mg PO BID [facility]; Protocol Last Admin: 05/16/22 08:19 Dose: 6.25 mg Documented By: SOFIA Enoxaparin Sodium (Enoxaparin Sodium 40 Mg/0.4 Ml Syringe) 40 mg SUBCUT Q24H [facility] Last Admin: 05/16/22 02:51 Dose: 40 mg Documented By: AMBERLY Glucose (Glucose Gel 15 Gm Gel..Gram.) 15 gm PO Q15M PRN; Protocol PRN Reason: per Hypoglycemia Standing Ord. Lactated Ringer's (Lr) 1,000 mls @ 125 mls/hr IVCONT .Q8H [facility] Last Admin: 05/16/22 04:40 Dose: Not Given Documented By: AMBERLY Non-Admin Reason: IV Running Dextrose (D10) 250 mls @ 750 mls/hr IV Q15M PRN; Protocol PRN Reason: per Hypoglycemia Standing Ord. Insulin Human Lispro (Insulin Lispro 100 Unit/Ml 3 Ml Vial) 0 unit SUBCUT QIDACHS [facility]; Protocol Last Admin: 05/16/22 08:20 Dose: 2 unit Documented By: SOFIA Melatonin (Melatonin 3 Mg Tablet) 6 mg PO BEDTIME PRN PRN Reason: Insomnia Morphine Sulfate (Morphine Sulfate 4 Mg/Ml Cartridge) 4 mg IVPUSH Q4H PRN; Protocol PRN Reason: Pain, Severe (Pain Scale 7-10) Last Admin: 05/16/22 05:17 Dose: 4 mg Documented By: AMBERLY Comments: accidentally discarded vial before scanning. Ondansetron HCl (Ondansetron Hcl 4 Mg/2 Ml Vial) 4 mg IVPUSH Q8H PRN PRN Reason: Nausea and Vomiting Last Admin: 05/15/22 20:04 Dose: 4 mg Documented By: BRANDEN Pharmacy Consult (Consult Rx Perform Med Rec) 1 each MISCELLANE ONCE PRN PRN Reason: Consult order Sodium Chloride (0.9 % Sodium Chloride Flush 3 Ml Syringe) 3 ml IVFLUSH QSHIFT ZARA Last Admin: 05/16/22 08:20 Dose: 3 ml Documented By: REGGIEOSOB Labs 05/15/22 03:55 05/15/22 03:55 Labs: Laboratory Results - last 24 hr 05/15/22 05/15/22 05/15/22 11:16 16:32 20:39 POC Glucose 61 255 H 131 H 05/16/22 07:21 POC Glucose 171 H Assessment and Plan (1) Pyelonephritis of right kidney: Status: Acute Plan This is 76-year-old female with pertinent history of mood disorder, insulin- dependent diabetes mellitus, essential hypertension, hypothyroidism who presents to the emergency department for evaluation of abdominal discomfort.? #.? Abdominal pain:? Unclear etiology.? Abdominal CT dated 05/13 with ileus vs low-grade SBO.? No transition point noted and doubt SBO as patient without nausea/vomiting and is having loose stools.? GI panel including C diff from 05/13: Negative.? Symptomatic treatment for now.? Patient refusing repeat CT abdomen/pelvis.? Getting GI consult plus additional workup if symptoms persist. #.? Insulin-dependent diabetes mellitus with hyperglycemia:? Initiating Accu- Cheks with sliding scale insulin.? Continue home basal regimen #.? Hypothyroidism: On Synthroid #.? Mood disorder: Continue home mood stabilizers #.? Hypertension:? Continue home beta-may DVT prophylaxis: Lovenox 40 mg daily Full code Cardiac diet inpatient need abd pain,diarrhea Time Spent With Patient Time: Total time managing care of this patient today ____ minutes. Quality Stroke Does the patient have a stroke diagnosis?: No VTE Prior VTE?: No VTE Risk Level:: Medical - moderate - high VTE Device Contraindication: Treatment Not Indicated VTE Drug Contraindication: N/A - Med Ordered
[2022-05-16 11:47] LABS: Glucose, Whole Blood 146 mg/dL (60-115)
[2022-05-16 13:03] LABS: Adenovirus F 40/41 Not Detected (Not Detect.); Astrovirus Not Detected (Not Detect.); Campylobacter Not Detected (Not Detect.); Cryptosporidium Not Detected (Not Detect.); Cyclospora cayetanensis Not Detected (Not Detect.); E. coli EAEC Not Detected (Not Detect.); E. coli EPEC Not Detected (Not Detect.); E. coli ETEC Not Detected (Not Detect.); E. coli STEC Not Detected (Not Detect.); Entamoeba histolytica Not Detected (Not Detect.); Giardia lamblia Not Detected (Not Detect.); Norovirus GI/GII Not Detected (Not Detect.); Plesiomonas shigelloides Not Detected (Not Detect.); Rotavirus A Not Detected (Not Detect.); Salmonella Not Detected (Not Detect.); Sapovirus Not Detected (Not Detect.); Shigella sp./EIEC Not Detected (Not Detect.); Vibrio Not Detected (Not Detect.); Vibrio Cholerae Not Detected (Not Detect.); Yersinia enterocolitica Not Detected (Not Detect.)
[2022-05-16 16:00] VITALS: BP 179/76; PULSE 76; RESP 18; TEMP 36.9; O2SAT 96
[2022-05-16 16:06] LABS: Glucose, Whole Blood 238 mg/dL (60-115)
[2022-05-16] MEDS: Lactated Ringers 1,000 ML 125 ML IVCONT (17:54)
[2022-05-16] MEDS: diphenhydrAMINE HCL 50 MG/ML VIAL 12.5 MG IVPUSH (18:47)
[2022-05-16 19:24] VITALS: BP 162/76; PULSE 77; RESP 18; TEMP 37.1; O2SAT 96
[2022-05-16 20:44] LABS: Glucose, Whole Blood 194 mg/dL (60-115)
[2022-05-16] MEDS: oxyCODONE HCl Immed Release 5 MG TABLET PO (22:19)
--- NOTE | 2022-05-17 00:35 | PC.NURSE ---
Unable to obtain IV access after several attempts by multiple nurses notified D'CD IV fluids and added po oxycodone for pain.? central line said to defer IV till AM.
[2022-05-17] MEDS: Enoxaparin Sodium 40 MG/0.4 ML SYRINGE SUBCUT (03:42)
--- NOTE | 2022-05-17 07:43 | P.PNIM_ITS ---
Subjective Subjective Date of Service: 05/17/22 Interval History: still with diarrhea and abdominal pain, lost iv access Physical Exam Vital Signs: Vital Signs: Last Vital Signs Temp 98.7 F 05/16/22 19:24 Pulse 77 05/16/22 19:24 Resp 18 05/16/22 19:24 BP 162/76 H 05/16/22 19:24 Pulse Ox 96 05/16/22 19:24 O2 Del Method 05/16/22 19:24 BMI result Body Mass Index 26.6 Const: Other: General: AO X 3, no acute distress Resp: CTA bilateral CVS: S1,S2,RRR GI: +BS, non specific tenderness Skin: No rash Neuro: motor grossly intact Psych: appropriate affect Objective Data Active Medications Acetaminophen (Acetaminophen 325 Mg Tablet) 650 mg PO Q6H PRN PRN Reason: Pain, Mild (Pain Scale 1-3) Last Admin: 05/16/22 22:19 Dose: 650 mg Documented By: BRANDEN Carvedilol (Carvedilol 6.25 Mg Tablet) 6.25 mg PO BID [facility]; Protocol Last Admin: 05/16/22 19:51 Dose: 6.25 mg Documented By: BRANDEN Diphenhydramine HCl (Diphenhydramine Hcl 50 Mg/Ml Vial) 12.5 mg IVPUSH Q6H PRN PRN Reason: Itching Last Admin: 05/16/22 18:47 Dose: 12.5 mg Documented By: SOFIA Enoxaparin Sodium (Enoxaparin Sodium 40 Mg/0.4 Ml Syringe) 40 mg SUBCUT Q24H [facility] Last Admin: 05/17/22 03:42 Dose: 40 mg Documented By: BRANDEN Glucose (Glucose Gel 15 Gm Gel..Gram.) 15 gm PO Q15M PRN; Protocol PRN Reason: per Hypoglycemia Standing Ord. Hydromorphone HCl (Hydromorphone Hcl 0.5 Mg/0.5 Ml Syringe) 0.5 mg IVPUSH Q6H PRN; Protocol PRN Reason: Pain, Severe (Pain Scale 7-10) Dextrose (D10) 250 mls @ 750 mls/hr IV Q15M PRN; Protocol PRN Reason: per Hypoglycemia Standing Ord. Insulin Human Lispro (Insulin Lispro 100 Unit/Ml 3 Ml Vial) 0 unit SUBCUT QIDACHS [facility]; Protocol Last Admin: 05/16/22 19:51 Dose: 2 unit Documented By: BRANDEN Melatonin (Melatonin 3 Mg Tablet) 6 mg PO BEDTIME PRN PRN Reason: Insomnia Ondansetron HCl (Ondansetron Hcl 4 Mg/2 Ml Vial) 4 mg IVPUSH Q8H PRN PRN Reason: Nausea and Vomiting Last Admin: 05/15/22 20:04 Dose: 4 mg Documented By: BRANDEN Oxycodone HCl (Oxycodone Hcl Immed Release 5 Mg Tablet) 5 mg PO Q6H PRN PRN Reason: Pain, Severe (Pain Scale 7-10) Last Admin: 05/16/22 22:19 Dose: 5 mg Documented By: BRANDEN Pharmacy Consult (Consult Rx Perform Med Rec) 1 each MISCELLANE ONCE PRN PRN Reason: Consult order Sodium Chloride (0.9 % Sodium Chloride Flush 3 Ml Syringe) 3 ml IVFLUSH [facility] Last Admin: 05/16/22 21:33 Dose: Not Given Documented By: BRANDEN Non-Admin Reason: IV Running Labs 05/15/22 03:55 05/15/22 03:55 Labs: Laboratory Results - last 24 hr 05/16/22 05/16/22 05/16/22 10:29 11:39 16:01 POC Glucose 146 H 238 H Stl C. cayetanensis PCR Not Detected Stool Rotavirus A PCR Not Detected Stl Adenov F 40/41 PCR Not Detected Stool Astrovirus (PCR) Not Detected Stool Campylobacter PCR Not Detected Stool Cryptosporidium PCR Not Detected Stl Sh Tox Pr E STEC PCR Not Detected Stool E coli O157 PCR Not applicable Stl Enterotoxigenic E PCR Not Detected Stool EPEC (PCR) Not Detected Stool EAEC (PCR) Not Detected Stl E. histolytica PCR Not Detected Stool Giardia Lamblia PCR Not Detected Stl P. shigelloides PCR Not Detected Stool Salmonella PCR Not Detected Stool Sapovirus (PCR) Not Detected Stl Shigella/EIEC PCR Not Detected St Y.enterocolitica PCR Not Detected Stool Vibrio (PCR) Not Detected Stl Vibrio cholerae PCR Not Detected Stl Norovirus GI/GII PCR Not Detected 05/16/22 19:34 POC Glucose 194 H Stl C. cayetanensis PCR Stool Rotavirus A PCR Stl Adenov F 40/41 PCR Stool Astrovirus (PCR) Stool Campylobacter PCR Stool Cryptosporidium PCR Stl Sh Tox Pr E STEC PCR Stool E coli O157 PCR Stl Enterotoxigenic E PCR Stool EPEC (PCR) Stool EAEC (PCR) Stl E. histolytica PCR Stool Giardia Lamblia PCR Stl P. shigelloides PCR Stool Salmonella PCR Stool Sapovirus (PCR) Stl Shigella/EIEC PCR St Y.enterocolitica PCR Stool Vibrio (PCR) Stl Vibrio cholerae PCR Stl Norovirus GI/GII PCR Assessment and Plan (1) Pyelonephritis of right kidney: Status: Acute Plan This is 76-year-old female with pertinent history of mood disorder, insulin- dependent diabetes mellitus, essential hypertension, hypothyroidism who presents to the emergency department for evaluation of abdominal discomfort.? #.? Abdominal pain:? Unclear etiology.? Abdominal CT dated 05/13 with ileus vs low-grade SBO.? No transition point noted and doubt SBO as patient without nausea/vomiting and is having loose stools.? GI panel including C diff from 05/13: Negative.? Symptomatic treatment for now.? Patient refusing repeat CT abdomen/pelvis.? Getting GI consult plus additional workup if symptoms persist. #.? Insulin-dependent diabetes mellitus with hyperglycemia:? Initiating Accu- Cheks with sliding scale insulin.? Continue home basal regimen #.? Hypothyroidism: On Synthroid #.? Mood disorder: Continue home mood stabilizers #.? Hypertension:? Continue home beta-may DVT prophylaxis: Lovenox 40 mg daily Full code Cardiac diet inpatient need abd pain,diarrhea Time Spent With Patient Time: Total time managing care of this patient today ____ minutes. Quality Stroke Does the patient have a stroke diagnosis?: No VTE Prior VTE?: No VTE Risk Level:: Medical - moderate - high VTE Device Contraindication: Treatment Not Indicated VTE Drug Contraindication: N/A - Med Ordered
[2022-05-17 07:51] LABS: Glucose, Whole Blood 194 mg/dL (60-115)
[2022-05-17 08:00] VITALS: BP 152/69; PULSE 75; RESP 18; TEMP 36.8; O2SAT 95
[2022-05-17] MEDS: Insulin Lispro 100 UNIT/ML 3 ML VIAL SUBCUT ×4 (08:26→20:46)
[2022-05-17] MEDS: carvediloL 6.25 MG TABLET PO ×2 (08:26→20:33)
[2022-05-17 11:14] LABS: Glucose, Whole Blood 244 mg/dL (60-115)
[2022-05-17] MEDS: oxyCODONE HCl Immed Release 5 MG TABLET PO (11:52)
[2022-05-17] MEDS: Omeprazole 40 MG CAPSULE.DR PO (13:00)
[2022-05-17 15:05] VITALS: BP 157/72; PULSE 70; RESP 16; TEMP 36.6; O2SAT 95
[2022-05-17] MEDS: HYDROmorphone HCl 2 MG TABLET PO ×2 (15:28→20:33)
[2022-05-17 16:28] LABS: Glucose, Whole Blood 180 mg/dL (60-115)
[2022-05-17] MEDS: Dicyclomine HCl 10 MG CAPSULE 20 MG PO ×2 (17:16→20:34)
[2022-05-17] MEDS: 0.9 % Sodium Chloride Flush 3 ML SYRINGE IVFLUSH (17:16)
[2022-05-17 20:16] VITALS: BP 142/67; PULSE 78; RESP 15; TEMP 36.6; O2SAT 97
[2022-05-17 20:37] LABS: Glucose, Whole Blood 236 mg/dL (60-115)
[2022-05-17] MEDS: Melatonin 3 MG TABLET 6 MG PO (22:06)
--- NOTE | 2022-05-17 22:57 | CONS_ITS ---
DATE OF SERVICE: 05/17/2022 REFERRING PHYSICIAN: Wilelm Ivan MD REASON FOR CONSULTATION: Abdominal pain. HISTORY OF PRESENT ILLNESS: The patient is a pleasant 76-year-old woman who was admitted to the hospital on May 15 after presenting to the emergency room with complaints of abdominal pain. She was recently treated for cystitis and pyelonephritis with antibiotics and reports that since that time she has developed diarrhea and crampy abdominal discomfort. She does have a history of irritable bowel syndrome and had similar symptoms after previously being treated with antibiotics in the past. She was evaluated in the emergency room and underwent CT scanning on May 13, which is reviewed. This is interpreted as showing prominent small bowel loops in the upper abdomen suspicious for ileus. She has had no symptoms of bowel obstruction. She does report previous evaluation with colonoscopy with Dr. Crowe in [place] with removal of polyps. She has not had upper endoscopy. She also take pantoprazole as an outpatient as well as dicyclomine for her IBS symptoms. PAST MEDICAL HISTORY: 1. Irritable bowel syndrome. 2. Urinary tract infections. 3. Hypertension. 4. Hypothyroidism. 5. Diabetes mellitus. 6. Mood disorder. 7. Chronic kidney disease. CURRENT MEDICATIONS: Her current medication list is reviewed in the chart. ALLERGIES: MULTIPLE MEDICATION ALLERGIES ARE REVIEWED. FAMILY HISTORY: This is reviewed with the patient and is noncontributory. SOCIAL HISTORY: There is no current tobacco, alcohol, or substance abuse. She is retired as a teacheer. REVIEW OF SYSTEMS: SKIN: No pruritus. HEENT: Negative. CARDIOPULMONARY: No shortness of breath or chest pain. GASTROINTESTINAL: As above. GENITOURINARY: Negative. NEUROPSYCHIATRIC: Negative. PHYSICAL EXAMINATION: GENERAL: Shows a pleasant female, lying comfortably in bed, watching television. VITAL SIGNS: Reviewed in the electronic medical record and are stable. SKIN: Anicteric. HEENT: Shows no scleral icterus. NECK: Without lymphadenopathy or thyromegaly. LUNGS: Clear. HEART: Shows regular rate and rhythm. S1, S2. No murmur. ABDOMEN: Soft without focal masses. There is some mild right lower quadrant tenderness to palpation, but no guarding or rebound. EXTREMITIES: Without edema. LABORATORY DATA: Laboratory data and CT scanning reviewed. IMPRESSION: Abdominal pain and diarrhea. This appears consistent with exacerbation of her irritable bowel syndrome following her recent treatment for cystitis/pyelonephritis. I would recommend restarting dicyclomine. This has been ordered and I have prescribed omeprazole 20 mg daily in case there is acid reflux component to some of her symptoms. Thanks for asking me to see her. I will follow her in the hospital with you. MD ANJU Sawant/ALBERTO / [id number]
[2022-05-18] MEDS: HYDROmorphone HCl 2 MG TABLET PO ×2 (02:31→08:49)
[2022-05-18] MEDS: Enoxaparin Sodium 40 MG/0.4 ML SYRINGE SUBCUT (05:01)
[2022-05-18] MEDS: Omeprazole 40 MG CAPSULE.DR PO (05:01)
[2022-05-18 05:38] VITALS: BP 144/65; PULSE 65; RESP 16; TEMP 36.2; O2SAT 96
[2022-05-18 07:50] LABS: Glucose, Whole Blood 187 mg/dL (60-115)
[2022-05-18] MEDS: Insulin Lispro 100 UNIT/ML 3 ML VIAL SUBCUT ×2 (07:50→11:30)
[2022-05-18] MEDS: carvediloL 6.25 MG TABLET PO (07:51)
[2022-05-18] MEDS: Dicyclomine HCl 10 MG CAPSULE 20 MG PO ×2 (07:51→11:30)
[2022-05-18 07:56] VITALS: BP 152/70
[2022-05-18 08:00] VITALS: BP 184/77; PULSE 70; RESP 18; TEMP 36.8; O2SAT 92
[2022-05-18] MEDS: lisinopriL 5 MG TABLET PO (09:09)
--- NOTE | 2022-05-18 09:53 | P.DS_ITS ---
DS: Providers Provider Date of Service: 05/18/22 Date of admission: 05/15/22 03:15 Primary care physician: Mike Borges DO Consults: 05/17/22 10:02 Consult to Gastroenterology Routine Consulting Provider: Checo Melendez Reason for consultation: Abdominal pain Has provider been notified: No DS: Diagnosis Discharge Diagnosis (1) Pyelonephritis of right kidney: Status: Acute DS: Summary Hospital Course Hospital Course: Chief Complaint: Abdominal Pain This is 76-year-old female with pertinent history of mood disorder, insulin- dependent diabetes mellitus, essential hypertension, hypothyroidism who presents to the emergency department for evaluation of abdominal discomfort.? Patient had a recent admission for cystitis/pyelonephritis which was complicated by diarrhea and patient was given prophylactic vancomycin as she is C diff carrier.? Patient was discharged on 05/01.? Patient states her diarrhea is getting better but had significant abdominal discomfort last night.? She was seen in the ER and was sent home after CT abdomen/pelvis which showed potentially ileus versus low- grade partial SBO.? Patient presented to the ER again today for similar complaints and states her abdominal pain is worse.? It is located in the right lower quadrant, radiating to the groin occasionally, without any relieving factors.? Is having loose stools but denies fever, chills, nausea, vomiting.? Patient denies chest discomfort, palpitations, shortness of breath, changes in urinary habits. Hospital course: #.? Abdominal pain:? Unclear etiology.? Abdominal CT dated 05/13 with ileus vs low-grade SBO.? No transition point noted and doubt SBO as patient without nausea/vomiting and is having loose stools, so clinically no bowel obstruction. ? GI panel including C diff from 05/13: Negative.? Treated symptomatically and was evaluated by GI (Dr. Melendez) and thought that patient was suffering from know IBS and has been initiated on Bentyl, Prilosec. #.? Insulin-dependent diabetes mellitus with hyperglycemia:? resume prior medicaion #.? Hypothyroidism: On Synthroid #.? Mood disorder: Continue home mood stabilizers #.? Hypertension:? Continue home beta-may Time Spent with Patient Time attestation: Total time managing care of this patient today ____ minutes. Discharge coordination time: Greater than 30 minutes Quality: Safe Use of Opioids Does Pt have an Active Cancer Diagnosis on the Problem List?: No Quality: Stroke Does the patient have a stroke diagnosis?: No Physical Exam Vital Signs: Vital Signs: Last Vital Signs Temp 98.2 F 05/18/22 08:00 Pulse 70 05/18/22 08:00 Resp 18 05/18/22 08:00 BP 184/77 H 05/18/22 08:00 Pulse Ox 92 05/18/22 08:00 O2 Del Method 05/18/22 08:00 BMI result Body Mass Index 26.6 Const: Other: General: AO X 3, no acute distress Resp: CTA bilateral CVS: S1,S2,RRR GI: +BS, NT, no distention Skin: No rash Neuro: motor grossly intact Psych: appropriate affect DS: Data Data Completed and Pending Labs on day of discharge: Laboratory Results - last 24 hr 05/17/22 05/17/22 05/17/22 11:05 16:12 20:22 POC Glucose 244 H 180 H 236 H 05/18/22 07:19 POC Glucose 187 H Discharge Plan Discharge Anticipated Discharge Date/Time: 05/18/22 09:48 Patient Disposition: Home, Self-Care Referrals: Mike Borges DO [Primary Care Provider] - 1 Week Discharge Medications: Continued insulin lispro [Humalog KwikPen Insulin] 100 unit/mL insulin pen 0 sliding scale dose subcut QIDACHS Protocol: Insulin Correction Scale Less than or equal to 110 ---- Give (units): 0 111 to 150 Give (units): 0 151 to 200 Give (units): 2 201 to 250 Give (units): 4 251 to 300 Give (units): 6 301 to 350 Give (units): 8 Greater than 350 Give (units): 10 Call MD if Blood Glucose > : 350 atorvastatin 80 mg tablet 80 mg PO DAILY carvedilol 6.25 mg tablet 6.25 mg PO BID levothyroxine 100 mcg tablet 100 mcg PO DAILY@0600 pantoprazole 40 mg tablet,delayed release (DR/EC) 40 mg PO DAILY@0630 insulin glargine [Lantus Solostar U-100 Insulin] 100 unit/mL (3 mL) insulin pen 20 - 32 unit subcut DAILY Myrbetriq 25 mg tablet extended release 24 hr 25 mg PO BID fluoxetine 40 mg capsule 40 mg PO DAILY dicyclomine 10 mg capsule 20 mg PO QID PRN (Reason: Abdominal Pain) estradiol [Estrace] 0.01 % (0.1 mg/gram) cream 0.25 appful vaginal DAILY Qty: 42.5 2RF Rx Instructions: Use a pea-sized amount on fingertip and apply vaginally at bedtime daily Diet: Advance to usual diet Activity on Discharge: As tolerated Stand Alone Forms: Patient Portal Discharge page Care Plan Goals: recovery Health Concerns: abdominal pain, iritable benito syndrome Plan of Treatment: take constance Castro Assessment: as above
--- NOTE | 2022-05-18 10:44 | MHC.CM.PN ---
FAREED 05/15/22 Female 76 is discharged to [facility] today. [facility] will resume home health services. Patient has arranged for transportation home.
[2022-05-18 11:25] LABS: Glucose, Whole Blood 233 mg/dL (60-115)
== END 2022-05-18 12:59 | disposition home or self-care (01) ==
LOC: HO.ED 05-15 01:50 → HO.EDOVER 05-15 03:30 → HO.S3 05-15 05:38
PROVIDERS: Physician Assistant; Admitting Provider Student in an Organized Health Care Education/Training Program; Emergency Provider Emergency Medicine Emergency Medical Services; PCP Family Medicine; Visit Provider Internal Medicine
DX: R10.31 Right lower quadrant pain (principal); R19.7 Diarrhea, unspecified; Z20.822 Contact with and (suspected) exposure to COVID-19; E11.22 Type 2 diabetes mellitus with diabetic chronic kidney disease; E11.65 Type 2 diabetes mellitus with hyperglycemia; I12.9 Hypertensive chronic kidney disease with stage 1 through stage 4 chronic kidney disease, or unspecified chronic kidney disease; N18.9 Chronic kidney disease, unspecified; E03.9 Hypothyroidism, unspecified; K58.9 Irritable bowel syndrome, unspecified; F39 Unspecified mood [affective] disorder; Z87.448 Personal history of other diseases of urinary system; Z87.440 Personal history of urinary (tract) infections; Z79.02 Long term (current) use of antithrombotics/antiplatelets; Z79.4 Long term (current) use of insulin; Z79.899 Other long term (current) drug therapy
CPT/HCPCS: 36415; 36573; 74018; 80048; 80076; 81003; 82947; 83605; 83690; 83735; 84443; 85025; 85610; 85730; 86850; 86900; 86901; 87507; 87635; 96361; 96372; 96374; 96375; 96376; 99221; 99285; J1170; J1200; J1650; J2270; J2405

== ENCOUNTER → 2022-06-04 15:06 | Outpatient (BNVA) | payer MEDICARE, SELFPAY | PROVIDERS: PCP Family Medicine; Visit Provider Urology | DX: N39.0 Urinary tract infection, site not specified (principal) | CPT/HCPCS: 51701 ==

== ENCOUNTER 2022-06-29 16:32 | Emergency (ER) | payer MEDICARE, SELFPAY ==
[2022-06-29 18:05] VITALS: BP 201/84; PULSE 86; RESP 18; TEMP 36.1; O2SAT 97; BMI 26.4
--- NOTE | 2022-06-29 18:06 | ED_ITS ---
HPI - Female Genitourinary General Chief complaint: Urogenital-Female Stated complaint: UTI Time Seen by Provider: 06/29/22 20:09 Source: patient Mode of arrival: ambulatory Limitations: no limitations History of Present Illness HPI Narrative: 76 y/o female with historiy of recurrent UTIs, history of pyelonephritis who presents to the ER for evaluation of dysuria, urgency, frequency and suprapubic pain for the last 3 days. She also reports lower back pain on the right. No flank pain, N/V, fever, chills. She has had a couple drops of blood in her urine. She states she sees urology for frequent UTIs and completes a 2 week course of abx abotu 3 weeks ago. MD elicited complaint: dysuria and back pain Pertinent past history: recurrent UTIs and pyelonephritis Onset (ago): day(s) (3) Location of symptoms: suprapubic and urethra Severity: severe Female Urogenital Radiation: Non-Radiating Quality of pain: burning and stabbing Consistency: constant Vaginal discharge: none Vaginal bleeding: none Urinary symptoms: Dysuria, Urgency, Frequency, Foul Smelling Urine and Difficulty Urinating Exacerbating factors: urination Relieving factors: none Associated symptoms: back pain Treatment prior to arrival: none Sexual activity: No Related Data Home Medications Medication Instructions Recorded Confirmed dicyclomine 10 mg capsule 20 mg PO QID PRN Abdominal Pain 04/17/20 05/15/22 insulin lispro 100 unit/mL 0 sliding scale dose subcut QIDACHS 04/24/22 05/15/22 subcutaneous pen (Humalog KwikPen (U-100) Insulin) atorvastatin 80 mg tablet 80 mg PO DAILY 05/15/22 05/15/22 carvedilol 6.25 mg tablet 6.25 mg PO BID 05/15/22 05/15/22 fluoxetine 40 mg capsule 40 mg PO DAILY 05/15/22 05/15/22 insulin glargine 100 unit/mL (3 20 - 32 unit subcut DAILY 05/15/22 05/15/22 mL) subcutaneous pen (Lantus Solostar U-100 Insulin) levothyroxine 100 mcg tablet 100 mcg PO DAILY@0600 05/15/22 05/15/22 mirabegron 25 mg tablet,extended 25 mg PO BID 05/15/22 05/15/22 release 24 hr (Myrbetriq) pantoprazole 40 mg tablet,delayed 40 mg PO DAILY@0630 05/15/22 05/15/22 release Previous Rx's Medication Instructions Recorded estradiol 0.01% (0.1 mg/gram) 0.25 appful vaginal DAILY #42.5 05/14/22 vaginal cream (Estrace) grams dicyclomine 10 mg capsule 20 mg PO QIDACHS #60 caps 05/18/22 hydromorphone 2 mg tablet 2 mg PO Q4H PRN Pain, Severe (Pain 05/18/22 Scale 7-10) #16 tabs lisinopril 5 mg tablet 5 mg PO DAILY #30 tabs 05/18/22 nitrofurantoin 100 mg PO BID 7 days #14 caps 06/04/22 monohydrate/macrocrystals 100 mg capsule (Macrobid) nitrofurantoin 100 mg PO Q12H #20 caps 06/29/22 monohydrate/macrocrystals 100 mg capsule (Macrobid) phenazopyridine 100 mg tablet 100 mg PO TID PRN pain 6 doses #6 06/29/22 (Pyridium) tabs Allergies Allergy/AdvReac Type Severity Reaction Status Date / Time droperidol [From INAPSINE] Allergy Severe HYPERACTIVE Verified 06/29/22 18:05 doxycycline [DOXYCYCLINE] Allergy Intermediate N/V/DIARRHE Verified 06/29/22 18:05 A latex [LATEX] Allergy Intermediate RASH Verified 06/29/22 18:05 amlodipine Allergy Unknown Unknown Verified 06/29/22 18:05 cephalexin [Keflex] Allergy Unknown Unknown Verified 06/29/22 18:05 ciprofloxacin [Cipro] Allergy Unknown Unknown Verified 06/29/22 18:05 levofloxacin [Levaquin] Allergy Unknown Unknown Verified 06/29/22 18:05 sulfamethoxazole AdvReac Mild GI UPSET Verified 06/29/22 18:05 [From BACTRIM] trimethoprim [From BACTRIM] AdvReac Mild GI UPSET Verified 06/29/22 18:05 Review of Systems Review of Systems: Yes all other systems are reviewed and are negative PMFSH Past Medical History Medical History Chronic kidney disease Hematuria Hx: UTI (urinary tract infection) Incomplete emptying of bladder Pyuria Urethral caruncle Surgical History History of total hysterectomy Social History Social History Household Members: None Housing: Assisted Living Facility Do you presently have visiting nurse or other home services: Yes Alcohol intake: current Alcohol intake frequency: holidays/special occasions only Patient Tobacco Use Status: Never used Tobacco Advance Directives: Yes Advance Directives on File: Yes Advance Directives Date on File: 04/24/22 service: No Current occupational status: retired Physical Exam Vital Signs: Vital Signs: Last Vital Signs Temp 97.0 F 06/29/22 18:05 Pulse 77 06/29/22 20:10 Resp 18 06/29/22 20:10 BP 217/96 H 06/29/22 20:10 Pulse Ox 98 06/29/22 20:10 O2 Del Method Room Air 06/29/22 18:05 BMI result Body Mass Index 26.4 Appearance: Alert. Oriented X3. No acute distress. Head: normocephalic, atraumatic. Eyes: Pupils equal, round and reactive to light. ENT: Pharynx normal. No tonsillar swelling or exudate. Neck: Normal inspection. Neck supple. CVS: Normal heart rate and rhythm. Pulses normal. Respiratory: No respiratory distress. Breath sounds normal. Abdomen: Soft with +suprapubic tenderness, normal active +BS x4, no CVA tenderness. Skin: Skin warm and dry. Normal skin color. Normal skin turgor. No rashes. Extremities: No lower extremity edema. No joint swelling. Neuro/psych: Oriented X 3. No motor deficit. No sensory deficit. CN II-XII intact. Normal speech and cognition. Course Course Course Narrative: RME - 76 yo female with history of recurrent UTIs, history of pyelonephritis, overactive bladder, who follows w/ Dr. Mccoy who presents to the ER for evaluation of 2-3 days of suprapubic pain, dysuria, urgency and frequency. Also has had blood in her urine a few times. No fevers, nausea or vomiting but she has had diarrhea. Reports 8/10 suprapubic pain and she has some right lower back pain as well. No CVA tenderness on exam. Doubt pyelo or stone. Plan: UA and treat. Last UTI here was April and pena-sensitive E. coli. Medications Administered Discontinued Medications Generic Name Dose Route Start Last Admin Trade Name August PRN Reason Stop Dose Admin Acetaminophen 975 mg 06/29/22 20:12 06/29/22 20:37 Acetaminophen 325 Mg Tablet PO 06/29/22 20:13 975 mg ONCE ONE Administration Carvedilol 6.25 mg 06/29/22 20:12 06/29/22 20:37 Carvedilol 6.25 Mg Tablet PO 06/29/22 20:13 6.25 mg ONCE ONE Administration Protocol Nitrofurantoin Macrocrystals 100 mg 06/29/22 20:11 06/29/22 20:37 Nitrofurantoin Monohyd/M-Cryst 100 Mg Capsule PO 06/29/22 20:12 100 mg ONCE ONE Administration Phenazopyridine HCl 100 mg 06/29/22 20:09 06/29/22 20:37 Phenazopyridine Hcl 100 Mg Tablet PO 06/29/22 20:10 100 mg ONCE ONE Administration Medical Decision Making Medical Decision Making [facility] Narrative: 76 yo female presents to the ER for evaluation of dysuria, urgency and frequency for 3 days. NO CVA tenderness. No fevers. No vomiting. Doubt acute pyelonephritis or infected stone. UA ++ for infection. multiple allergies to abx. will repeat course of macrobid which she has tolerated in the past. she will f/u with dr. morris tomorrow. Differential Diagnosis Differential Diagnoses: The differential diagnosis associated with the presentation includes acute lower UTI, kidney stone, pyelonephritis Lab Data [facility] Lab Attestation statement: I reviewed the patient's lab results. Labs: Lab Results 06/29/22 Range/Units 09:37 Urine Color Yellow Urine Appearance Turbid Urine pH 6.0 (5.0-9.0) Ur Specific [place] 1.025 (1.005-1.025) Urine Protein 300 (3+) H (Neg-Trace) mg/dL Urine Glucose (UA) 100 H (Negative) mg/dL Urine Ketones Negative (Negative) mg/dL Urine Blood Large (3+) H (Negative) Urine Nitrite Negative (Negative) Ur Leukocyte Esterase Large (3+) H (Negative) Urine RBC >20 H (0-2) /HPF Urine WBC >50 H (0-5) /HPF Ur Squamous Epith Cells 3-5 (0-2) /HPF Urine Bacteria 1+ (None Seen) Hyaline Casts 0-2 (0-2) /LPF External Record Review External record reviewed: Outpatient record and Prior outpatient labs Prescription Management I considered prescription management with: Pain Medication and Antibiotic Chronic Conditions Patient?s care impacted by: Other (recurrent UTIs) Critical Care Time Critical Care Time Critical Care Time: No Discharge Plan Discharge Clinical Impression: Acute UTI Patient Disposition: Home, Self-Care Instructions: Urinary Tract Infection in Women (DC) Prescriptions: New nitrofurantoin monohyd/m-cryst [Macrobid] 100 mg capsule 100 mg PO Q12H Qty: 20 0RF Rx Instructions: must administer with a meal/food phenazopyridine [Pyridium] 100 mg tablet 100 mg PO TID PRN (Reason: pain) Qty: 6 0RF No Action insulin lispro [Humalog KwikPen Insulin] 100 unit/mL insulin pen 0 sliding scale dose subcut QIDACHS Protocol: Insulin Correction Scale Less than or equal to 110 ---- Give (units): 0 111 to 150 Give (units): 0 151 to 200 Give (units): 2 201 to 250 Give (units): 4 251 to 300 Give (units): 6 301 to 350 Give (units): 8 Greater than 350 Give (units): 10 Call MD if Blood Glucose > : 350 atorvastatin 80 mg tablet 80 mg PO DAILY carvedilol 6.25 mg tablet 6.25 mg PO BID levothyroxine 100 mcg tablet 100 mcg PO DAILY@0600 pantoprazole 40 mg tablet,delayed release (DR/EC) 40 mg PO DAILY@0630 insulin glargine [Lantus Solostar U-100 Insulin] 100 unit/mL (3 mL) insulin pen 20 - 32 unit subcut DAILY Myrbetriq 25 mg tablet extended release 24 hr 25 mg PO BID fluoxetine 40 mg capsule 40 mg PO DAILY hydromorphone 2 mg Tablet 2 mg PO Q4H PRN (Reason: Pain, Severe (Pain Scale 7-10)) Qty: 16 0RF Rx Instructions: Partial Fill upon patient request. lisinopril 5 mg tablet 5 mg PO DAILY Qty: 30 0RF dicyclomine 10 mg Capsule 20 mg PO QIDACHS Qty: 60 0RF dicyclomine 10 mg capsule 20 mg PO QID PRN (Reason: Abdominal Pain) estradiol [Estrace] 0.01 % (0.1 mg/gram) cream 0.25 appful vaginal DAILY Qty: 42.5 2RF Rx Instructions: Use a pea-sized amount on fingertip and apply vaginally at bedtime daily nitrofurantoin monohyd/m-cryst [Macrobid] 100 mg capsule 100 mg PO BID 7 Days Qty: 14 0RF Rx Instructions: must administer with a meal/food
[2022-06-29 18:55] LABS: Appearance Urine Turbid; Color Urine Yellow; Glucose Urine UA 100 mg/dL (Negative); Leukocyte Esterase Urine Large (3+) (Negative); Nitrite Urine Negative (Negative); Specific Gravity - Urine 1.025 (1.005-1.025); UMIC TRIGGER UACC YES; Urine Blood Large (3+) (Negative); Urine Ketones Negative (Negative); Urine Protein 300 (3+) mg/dL (Neg-Trace)
[2022-06-29 19:11] LABS: Bacteria Urine 1+ (None Seen); Hyaline Casts Urine 0-2 /LPF (0-2); RBC Urine >20 /HPF (0-2); UACC Culture Trigger YES; WBC Urine >50 /HPF (0-5)
[2022-06-29 20:10] VITALS: BP 217/96; PULSE 77; RESP 18; O2SAT 98
[2022-06-29] MEDS: Acetaminophen 325 MG TABLET 975 MG PO (20:37)
[2022-06-29] MEDS: Nitrofurantoin Monohyd/M-Cryst 100 MG CAPSULE PO (20:37)
[2022-06-29] MEDS: carvediloL 6.25 MG TABLET PO (20:37)
[2022-06-29] MEDS: Phenazopyridine HCL 100 MG TABLET PO (20:37)
--- NOTE | 2022-06-29 21:25 | PC.NURSE ---
pt medicated per MARY- carvedilol givesrini as pt has not been able to take meds d/t being in dept
== END 2022-06-29 21:25 | disposition home or self-care (01) ==
PROVIDERS: Physician Assistant; Emergency Provider Emergency Medicine; PCP Physician Assistant
DX: N39.0 Urinary tract infection, site not specified (principal); R30.0 Dysuria; R35.0 Frequency of micturition; M54.50 Low back pain, unspecified; Z79.899 Other long term (current) drug therapy
CPT/HCPCS: 81001; 87086; 99283

== ENCOUNTER 2022-07-02 00:28 | Emergency (ER) | payer MEDICARE, SELFPAY ==
[2022-07-02 00:30] VITALS: BP 199/105; PULSE 78; RESP 18; TEMP 36.8; O2SAT 97; BMI 26.3
[2022-07-02 01:06] LABS: Appearance Urine Hazy; Color Urine Orange; Glucose Urine UA 250 mg/dL (Negative); Leukocyte Esterase Urine Small (1+) (Negative); Nitrite Urine Positive (Negative); Specific Gravity - Urine 1.015 (1.005-1.025); UMIC TRIGGER UACC YES; Urine Blood Negative (Negative); Urine Ketones 15 mg/dL (Negative); Urine Protein 100 (2+) mg/dL (Neg-Trace)
[2022-07-02 01:12] LABS: Bacteria Urine None Seen (None Seen); Hyaline Casts Urine 0-2 /LPF (0-2); UACC Culture Trigger YES; WBC Urine 0-5 /HPF (0-5)
[2022-07-02 01:59] LABS: MANUAL DIFF FLAG NO
[2022-07-02 02:00] LABS: Basophils Absolute Auto 0.1 X10*3/uL (0.0-0.2); Basophils Percent Auto 0.7 % (0-2); Eosinophils Absolute Auto 0.2 X10*3/uL (0.0-0.4); Eosinophils Percent Auto 3.3 % (0-4); Hematocrit 35.7 % (37.0-47.0); Hemoglobin 11.3 g/dl (12.0-16.0); Imm Gran Abs Auto 0.02 X10*3/uL (0.00-0.03); Imm Gran Pct Auto 0.3 % (0.0-0.4); Lymphocytes Absolute Auto 2.2 X10*3/uL (1.2-4.9); Lymphocytes Percent Auto 30.1 % (20-40); Mean Corpuscular HGB Conc 31.7 g/dl (31.0-35.0); Mean Corpuscular Hemoglobin 24.5 pg (27.0-33.0); Mean Corpuscular Volume 77.3 fL (80.0-98.0); Mean Platelet Volume 9.1 fL (9.4-12.3); Monocytes Absolute Auto 0.5 X10*3/uL (0.1-1.2); Monocytes Percent Auto 6.7 % (2-11); Neutrophils Absolute Auto 4.3 x10*3/uL (2.0-8.3); Neutrophils Percent Auto 58.9 % (45-73); Platelet Count 213 X10*3/uL (160-400); Red Blood Count 4.62 X10*6/uL (4.20-5.50); Red Cell Distribution Width 17.2 % (11.0-16.0); White Blood Count 7.3 X10*3/uL (4.8-10.8)
[2022-07-02 02:12] LABS: Anion Gap 14 (12-20); Blood Urea Nitrogen 19 mg/dL (9-16); Calcium 8.8 mg/dL (8.4-10.2); Carbon Dioxide 22 mmol/L (22-29); Chloride 107 mmol/L (96-108); Creatinine Clr Calc Pharmacy 45.6; Estimated Glomerular Filt Rate 43; Glucose Random 153 mg/dL (60-115); Potassium 3.7 mmol/L (3.3-5.1); Sodium 139 mmol/L (135-145)
--- NOTE | 2022-07-02 05:11 | ED.GENADULT ---
HPI - General Adult General Chief complaint: Abdominal Pain <Pilar Cuenca MD - Last Filed: 07/02/22 06:53> Stated complaint: UTI meds causing pain <Pilar Cuenca MD - Last Filed: 07/02/22 06:53> Time Seen by Provider: 07/02/22 05:12 <Pilar Cuenca MD - Last Filed: 07/02/22 06:53> Source: patient <Pilar Cuenca MD - Last Filed: 07/02/22 06:53> Mode of arrival: ambulatory <Pilar Cuenca MD - Last Filed: 07/02/22 06:53> Limitations: no limitations <Pilar Cuenca MD - Last Filed: 07/02/22 06:53> History of Present Illness HPI narrative: Patient comes to the emergency room complaining of UTI symptoms. Patient was diagnosed with a UTI 3 days ago. Patient was diagnosed Macrobid. Patient states that she has been having diarrhea and abdominal discomfort. Patient states that she usually has significant GI issues with antibiotics. Patient has had C diff in the past. Patient states she had diarrhea yesterday, she has not had diarrhea in several hours. <Pilar Cuenca MD - Last Filed: 07/02/22 06:53> Related Data Home medications: Home Medications Medication Instructions Recorded Confirmed dicyclomine 10 mg capsule 20 mg PO QID PRN Abdominal Pain 04/17/20 05/15/22 insulin lispro 100 unit/mL 0 sliding scale dose subcut QIDACHS 04/24/22 05/15/22 subcutaneous pen (Humalog KwikPen (U-100) Insulin) atorvastatin 80 mg tablet 80 mg PO DAILY 05/15/22 05/15/22 carvedilol 6.25 mg tablet 6.25 mg PO BID 05/15/22 05/15/22 fluoxetine 40 mg capsule 40 mg PO DAILY 05/15/22 05/15/22 insulin glargine 100 unit/mL (3 20 - 32 unit subcut DAILY 05/15/22 05/15/22 mL) subcutaneous pen (Lantus Solostar U-100 Insulin) levothyroxine 100 mcg tablet 100 mcg PO DAILY@0600 05/15/22 05/15/22 mirabegron 25 mg tablet,extended 25 mg PO BID 03/17/23 03/17/23 release 24 hr (Myrbetriq) pantoprazole 40 mg tablet,delayed 40 mg PO DAILY@0630 05/15/22 05/15/22 release Previous Rx's Medication Instructions Recorded estradiol 0.01% (0.1 mg/gram) 0.25 appful vaginal DAILY #42.5 05/14/22 vaginal cream (Estrace) grams dicyclomine 10 mg capsule 20 mg PO QIDACHS #60 caps 05/18/22 hydromorphone 2 mg tablet 2 mg PO Q4H PRN Pain, Severe (Pain 05/18/22 Scale 7-10) #16 tabs lisinopril 5 mg tablet 5 mg PO DAILY #30 tabs 05/18/22 nitrofurantoin 100 mg PO BID 7 days #14 caps 06/04/22 monohydrate/macrocrystals 100 mg capsule (Macrobid) nitrofurantoin 100 mg PO Q12H #20 caps 06/29/22 monohydrate/macrocrystals 100 mg capsule (Macrobid) phenazopyridine 100 mg tablet 100 mg PO TID PRN pain 6 doses #6 06/29/22 (Pyridium) tabs diphenhydramine HCl 25 mg capsule 25 mg PO DAILY #6 caps 07/02/22 (Benadryl) famotidine 40 mg tablet (Pepcid) 40 mg PO DAILY #6 tabs 07/02/22 levofloxacin 500 mg tablet 500 mg PO DAILY #6 tabs 07/02/22 lisinopril 10 mg tablet 10 mg PO DAILY #30 tabs 07/02/22 <Pilar Cuenca MD - Last Filed: 07/02/22 06:53> Allergies/adverse reactions: Allergies Allergy/AdvReac Type Severity Reaction Status Date / Time droperidol [From INAPSINE] Allergy Severe HYPERACTIVE Verified 06/29/22 18:05 doxycycline [DOXYCYCLINE] Allergy Intermediate N/V/DIARRHE Verified 06/29/22 18:05 A latex [LATEX] Allergy Intermediate RASH Verified 06/29/22 18:05 amlodipine Allergy Unknown Unknown Verified 06/29/22 18:05 cephalexin [Keflex] Allergy Unknown Unknown Verified 06/29/22 18:05 ciprofloxacin [Cipro] Allergy Unknown Unknown Verified 06/29/22 18:05 levofloxacin [Levaquin] Allergy Unknown Unknown Verified 06/29/22 18:05 sulfamethoxazole AdvReac Mild GI UPSET Verified 06/29/22 18:05 [From BACTRIM] trimethoprim [From BACTRIM] AdvReac Mild GI UPSET Verified 06/29/22 18:05 <Pilar Cuenca MD - Last Filed: 07/02/22 06:53> Review of Systems Review of Systems: Constitutional : No Weight loss, No Fever, No Chills, No Night Sweats, No Fatigue, No Malaise ENT/Mouth : No Hearing loss, No Ear Pain, No Nasal Congestion, No Sinus Pain, No Hoarseness, No sore throat, No Rhinorrhea, No Swallowing Difficulty Eyes: No Eye Pain, No Swelling, No Redness, No Foreign Body, No Discharge, No Vision Changes Cardiovascular : No Chest Pain, No SOB, No Dyspnea on Exertion, No Orthopnea, No Edema, No Palpitations Respiratory : No Cough, No Sputum, No Wheezing, No Smoke Exposure, No Dyspnea Gastrointestinal : Complaining of nausea No Vomiting, playing a Diarrhea, No Constipation, No abdominal Pain, No Hematochezia, No Melena Genitourinary : no irregular bleeding, complaining of Dysuria, No Urinary Frequency, No Hematuria, No Urinary Incontinence, No Urgency, No Flank Pain, No Urinary Flow Changes, No Hesitancy Musculoskeletal : No joint pain, No Myalgias, No Joint Swelling Skin : No Skin Lesions, No rash Neuro : No Weakness, No Numbness, No Paresthesias, No Loss of Consciousness, No Dizziness, No Headache Psych : No Anxiety/Panic, No Depression, No SI/HI/AH/VH, No Social Issues, Heme/Lymph: No Bruising, No Bleeding,No Lymphadenopathy Endocrine : No Polyuria, No Polydipsia, No Temperature Intolerance <Pilar Cuenca MD - Last Filed: 07/02/22 06:53> [facility] Past Medical History Medical History: Medical History Chronic kidney disease Hematuria Hx: UTI (urinary tract infection) Incomplete emptying of bladder Pyelonephritis of right kidney Pyuria Urethral caruncle <Pilar Cuenca MD - Last Filed: 07/02/22 06:53> Surgical History: Surgical History History of total hysterectomy <Pilar Cuenca MD - Last Filed: 07/02/22 06:53> Social History Social History: Social History Household Members: None Housing: Assisted Living Facility Do you presently have visiting nurse or other home services: Yes Alcohol intake: former Patient Tobacco Use Status: Never used Tobacco Smoked in Last 30 Days: No Use of substances other than those prescribed or required for medical reasons: No Advance Directives: Yes Advance Directives on File: Yes Advance Directives Date on File: 04/24/22 service: No Current occupational status: retired <Pilar Cuenca MD - Last Filed: 07/02/22 06:53> Physical Exam ED Vital Signs: Vital Signs - 24 hr 07/02/22 00:30 07/02/22 06:00 07/02/22 06:51 Temperature 98.2 F Pulse Rate 78 66 Respiratory Rate 18 16 Blood Pressure 199/105 H 200/81 H 195/88 H Pulse Oximetry 97 98 Oxygen Delivery Method Room Air Room Air 07/02/22 10:00 Temperature 98.2 F Pulse Rate 64 Respiratory Rate 16 Blood Pressure 150/66 H Pulse Oximetry 96 Oxygen Delivery Method Room Air BMI result Body Mass Index 26.3 <Pilar Cuenca MD - Last Filed: 07/02/22 06:53> Vital Signs - 24 hr 07/02/22 00:30 07/02/22 06:00 07/02/22 06:51 Temperature 98.2 F Pulse Rate 78 66 Respiratory Rate 18 16 Blood Pressure 199/105 H 200/81 H 195/88 H Pulse Oximetry 97 98 Oxygen Delivery Method Room Air Room Air 07/02/22 10:00 Temperature 98.2 F Pulse Rate 64 Respiratory Rate 16 Blood Pressure 150/66 H Pulse Oximetry 96 Oxygen Delivery Method Room Air BMI result Body Mass Index 26.3 <Manolo Baptiste MD - Last Filed: 07/02/22 11:43> Const Other: Appearance: Alert. Oriented X3. No acute distress. Eyes: Pupils equal, round and reactive to light. ENT: Pharynx normal. Neck: Normal inspection. Neck supple. No lymph nodes noted. No crepitus CVS: Normal heart rate and rhythm. Pulses normal. Normal S1 and S2 Respiratory: No respiratory distress. Breath sounds normal. No Wheezing. No rales Abdomen: Soft and nontender. No rigidity. No distention. Skin: Skin warm and dry. Normal skin color. Normal skin turgor. Extremities: No lower extremity edema. No Lacerations. No Rash Neuro: Oriented X 3. No motor deficit. No sensory deficit. Moving all extremities. No slurred speech. CN 2 through 12 grossly intact Psych: calm, cooperative, normal affect <Pilar Cuenca MD - Last Filed: 07/02/22 06:53> Course Reevaluation(s) Reevaluation #1: BP has improved. Casimiro referred to PMD regarding BP monitoring and management. She tolerated new ABX well. Follow up with urology. <Manolo Baptiste MD - Last Filed: 07/02/22 11:43> Time: 11:43 <Manolo Baptiste MD - Last Filed: 07/02/22 11:43> Medications Administered Discontinued Medications Generic Name Dose Route Start Last Admin Trade Name Freq PRN Reason Stop Dose Admin Diphenhydramine HCl 25 mg 07/02/22 05:10 07/02/22 05:16 Diphenhydramine Hcl 25 Mg Capsule PO 07/02/22 05:11 25 mg ONCE ONE Administration Famotidine 20 mg 07/02/22 05:10 07/02/22 05:16 Famotidine 20 Mg Tablet PO 07/02/22 05:11 20 mg ONCE ONE Administration Ketorolac Tromethamine 15 mg 07/02/22 07:31 07/02/22 08:07 Ketorolac Tromethamine 15 Mg/Ml Vial IVPUSH 07/02/22 07:32 15 mg ONCE ONE Administration Labetalol HCl 100 mg 07/02/22 06:17 07/02/22 06:23 Labetalol Hcl 100 Mg Tablet PO 07/02/22 06:18 100 mg ONCE ONE Administration Protocol Labetalol HCl 100 mg 07/02/22 06:52 07/02/22 06:56 Labetalol Hcl 100 Mg Tablet PO 07/02/22 06:53 100 mg ONCE ONE Administration Protocol Levofloxacin 500 mg 07/02/22 05:10 07/02/22 05:16 Levofloxacin 500 Mg Tablet PO 07/02/22 05:11 500 mg ONCE ONE Administration Oxycodone HCl 5 mg 07/02/22 06:17 07/02/22 06:23 Oxycodone Hcl Immed Release 5 Mg Tablet PO 07/02/22 06:18 5 mg ONCE ONE Administration <Pilar Cuenca MD - Last Filed: 07/02/22 06:53> Medications Administered Discontinued Medications Generic Name Dose Route Start Last Admin Trade Name August PRN Reason Stop Dose Admin Diphenhydramine HCl 25 mg 07/02/22 05:10 07/02/22 05:16 Diphenhydramine Hcl 25 Mg Capsule PO 07/02/22 05:11 25 mg ONCE ONE Administration Famotidine 20 mg 07/02/22 05:10 07/02/22 05:16 Famotidine 20 Mg Tablet PO 07/02/22 05:11 20 mg ONCE ONE Administration Ketorolac Tromethamine 15 mg 07/02/22 07:31 07/02/22 08:07 Ketorolac Tromethamine 15 Mg/Ml Vial IVPUSH 07/02/22 07:32 15 mg ONCE ONE Administration Labetalol HCl 100 mg 07/02/22 06:17 07/02/22 06:23 Labetalol Hcl 100 Mg Tablet PO 07/02/22 06:18 100 mg ONCE ONE Administration Protocol Labetalol HCl 100 mg 07/02/22 06:52 07/02/22 06:56 Labetalol Hcl 100 Mg Tablet PO 07/02/22 06:53 100 mg ONCE ONE Administration Protocol Levofloxacin 500 mg 07/02/22 05:10 07/02/22 05:16 Levofloxacin 500 Mg Tablet PO 07/02/22 05:11 500 mg ONCE ONE Administration Oxycodone HCl 5 mg 07/02/22 06:17 07/02/22 06:23 Oxycodone Hcl Immed Release 5 Mg Tablet PO 07/02/22 06:18 5 mg ONCE ONE Administration <Manolo Baptiste MD - Last Filed: 07/02/22 11:43> Medical Decision Making Medical Decision Making MDM Narrative: -patient's urine culture from June 29 shows mixed jas. Patient today on her urinalysis has nitrates present and small amount of leukocyte esterase. Patient is symptomatic. We will go ahead treat. Unfortunately, patient has multiple allergies. I discussed her allergies, patient states that when she takes fluoroquinolones, patient gets knee pain. I discussed with the patient that taking Levaquin is our best chance of treating the UTI. As knee pain may be a side effect but definitely not the analogy. Patient was given p.o. Benadryl and Pepcid along with Levaquin. -patient states that she is taking probiotics. C diff pending. Patient has not provided has stool sample as she has not had any diarrhea since she arrived in the emergency room -I was informed by the patient's nurse that patient cannot provide a stool sample, she does not have diarrhea. -also, I was informed that the patient's blood pressure is close to 200. Patient was given 100 mg of p.o. labetalol. -patient complaining of suprapubic pain, also given oxycodone. -at 06:53, blood pressure was checked, 195 systolic. Patient was given a 2nd dose of labetalol 100 mg. At this time, she has had a total of 200 mg. Patient has chest pain, shortness of breath, headache, visual changes. -patient tolerated well the antibiotic. <Pilar Cuenca MD - Last Filed: 07/02/22 06:53> Lab Data Result Diagrams: 07/02/22 01:55 07/02/22 01:55 <Pilar Cuenca MD - Last Filed: 07/02/22 06:53> Labs: Lab Results 07/02/22 07/02/22 07/02/22 Range/Units 00:44 01:55 01:55 WBC 7.3 (4.8-10.8) X10*3/uL RBC 4.62 (4.20-5.50) X10*6/uL Hgb 11.3 L (12.0-16.0) g/dl Hct 35.7 L (37.0-47.0) % MCV 77.3 L (80.0-98.0) fL MCH 24.5 L (27.0-33.0) pg MCHC 31.7 (31.0-35.0) g/dl RDW 17.2 H (11.0-16.0) % Plt Count 213 (160-400) X10*3/uL MPV 9.1 L (9.4-12.3) fL Immature Gran % (Auto) 0.3 (0.0-0.4) % Neut % (Auto) 58.9 (45-73) % Lymph % (Auto) 30.1 (20-40) % [place] % (Auto) 6.7 (2-11) % Eos % (Auto) 3.3 (0-4) % Baso % (Auto) 0.7 (0-2) % Lymph # (Auto) 2.2 (1.2-4.9) X10*3/uL [place] # (Auto) 0.5 (0.1-1.2) X10*3/uL Eos # (Auto) 0.2 (0.0-0.4) X10*3/uL Baso # (Auto) 0.1 (0.0-0.2) X10*3/uL Abs Immat Gran (auto) 0.02 (0.00-0.03) X10*3/uL Absolute Neuts (auto) 4.3 (2.0-8.3) x10*3/uL Absolute Nucleated RBC 0.000 (0.0-0.012) X10*3/uL Nucleated RBC % (auto) 0.0 (0.0-0.2) /100WBC Sodium 139 (135-145) mmol/L Potassium 3.7 (3.3-5.1) mmol/L Chloride 107 (96-108) mmol/L Carbon Dioxide 22 (22-29) mmol/L Anion Gap 14 (12-20) BUN 19 H (9-16) mg/dL Creatinine 1.21 (0.5-1.4) mg/dL Estim Creat Clear Calc 45.6 Estimated GFR 43 Random Glucose 153 H (60-115) mg/dL Calcium 8.8 D (8.4-10.2) mg/dL Urine Color [place] Urine Appearance Hazy Urine pH 5.0 (5.0-9.0) Ur Specific [place] 1.015 (1.005-1.025) Urine Protein 100 (2+) H (Neg-Trace) mg/dL Urine Glucose (UA) 250 H (Negative) mg/dL Urine Ketones 15 (Negative) mg/dL Urine Blood Negative (Negative) Urine Nitrite Positive H (Negative) Ur Leukocyte Esterase Small (1+) H (Negative) Urine RBC 11-20 H (0-2) /HPF Urine WBC 0-5 (0-5) /HPF Ur Squamous Epith Cells 6-10 (0-2) /HPF Urine Bacteria None Seen (None Seen) Hyaline Casts 0-2 (0-2) /LPF <Pilar Cuenca MD - Last Filed: 07/02/22 06:53> Lab Results 07/02/22 07/02/22 07/02/22 Range/Units 00:44 01:55 01:55 WBC 7.3 (4.8-10.8) X10*3/uL RBC 4.62 (4.20-5.50) X10*6/uL Hgb 11.3 L (12.0-16.0) g/dl Hct 35.7 L (37.0-47.0) % MCV 77.3 L (80.0-98.0) fL MCH 24.5 L (27.0-33.0) pg MCHC 31.7 (31.0-35.0) g/dl RDW 17.2 H (11.0-16.0) % Plt Count 213 (160-400) X10*3/uL MPV 9.1 L (9.4-12.3) fL Immature Gran % (Auto) 0.3 (0.0-0.4) % Neut % (Auto) 58.9 (45-73) % Lymph % (Auto) 30.1 (20-40) % [place] % (Auto) 6.7 (2-11) % Eos % (Auto) 3.3 (0-4) % Baso % (Auto) 0.7 (0-2) % Lymph # (Auto) 2.2 (1.2-4.9) X10*3/uL [place] # (Auto) 0.5 (0.1-1.2) X10*3/uL Eos # (Auto) 0.2 (0.0-0.4) X10*3/uL Baso # (Auto) 0.1 (0.0-0.2) X10*3/uL Abs Immat Gran (auto) 0.02 (0.00-0.03) X10*3/uL Absolute Neuts (auto) 4.3 (2.0-8.3) x10*3/uL Absolute Nucleated RBC 0.000 (0.0-0.012) X10*3/uL Nucleated RBC % (auto) 0.0 (0.0-0.2) /100WBC Sodium 139 (135-145) mmol/L Potassium 3.7 (3.3-5.1) mmol/L Chloride 107 (96-108) mmol/L Carbon Dioxide 22 (22-29) mmol/L Anion Gap 14 (12-20) BUN 19 H (9-16) mg/dL Creatinine 1.21 (0.5-1.4) mg/dL Estim Creat Clear Calc 45.6 Estimated GFR 43 Random Glucose 153 H (60-115) mg/dL Calcium 8.8 D (8.4-10.2) mg/dL Urine Color [place] Urine Appearance Hazy Urine pH 5.0 (5.0-9.0) Ur Specific [place] 1.015 (1.005-1.025) Urine Protein 100 (2+) H (Neg-Trace) mg/dL Urine Glucose (UA) 250 H (Negative) mg/dL Urine Ketones 15 (Negative) mg/dL Urine Blood Negative (Negative) Urine Nitrite Positive H (Negative) Ur Leukocyte Esterase Small (1+) H (Negative) Urine RBC 11-20 H (0-2) /HPF Urine WBC 0-5 (0-5) /HPF Ur Squamous Epith Cells 6-10 (0-2) /HPF Urine Bacteria None Seen (None Seen) Hyaline Casts 0-2 (0-2) /LPF <Manolo Baptiste MD - Last Filed: 07/02/22 11:43> Discharge Plan Discharge Clinical Impression: Acute UTI, Hypertension <Pilar Cuenca MD - Last Filed: 07/02/22 06:53> Patient Disposition: Home, Self-Care <Pilar Cuenca MD - Last Filed: 07/02/22 06:53> Instructions: Hypertension (ED), Urinary Tract Infection in Older Adults (ED) <Pilar Cuenca MD - Last Filed: 07/02/22 06:53> Additional Instructions: Take 2 tablets of lisinopril (10 mg daily). Please follow-up with your primary care physician tomorrow. If you have any worsening or new symptoms, please return to the emergency room or call 911 <Pilar Cuenca MD - Last Filed: 07/02/22 06:53> Prescriptions: New levofloxacin 500 mg tablet 500 mg PO DAILY Qty: 6 0RF famotidine [Pepcid] 40 mg tablet 40 mg PO DAILY Qty: 6 0RF diphenhydramine HCl [Benadryl] 25 mg capsule 25 mg PO DAILY Qty: 6 0RF Rx Instructions: Take together with your antibiotic and Pepcid lisinopril 10 mg tablet 10 mg PO DAILY Qty: 30 0RF No Action insulin lispro [Humalog KwikPen Insulin] 100 unit/mL insulin pen 0 sliding scale dose subcut QIDACHS Protocol: Insulin Correction Scale Less than or equal to 110 ---- Give (units): 0 111 to 150 Give (units): 0 151 to 200 Give (units): 2 201 to 250 Give (units): 4 251 to 300 Give (units): 6 301 to 350 Give (units): 8 Greater than 350 Give (units): 10 Call MD if Blood Glucose > : 350 atorvastatin 80 mg tablet 80 mg PO DAILY carvedilol 6.25 mg tablet 6.25 mg PO BID levothyroxine 100 mcg tablet 100 mcg PO DAILY@0600 pantoprazole 40 mg tablet,delayed release (DR/EC) 40 mg PO DAILY@0630 insulin glargine [Lantus Solostar U-100 Insulin] 100 unit/mL (3 mL) insulin pen 20 - 32 unit subcut DAILY Myrbetriq 25 mg tablet extended release 24 hr 25 mg PO BID fluoxetine 40 mg capsule 40 mg PO DAILY hydromorphone 2 mg Tablet 2 mg PO Q4H PRN (Reason: Pain, Severe (Pain Scale 7-10)) Qty: 16 0RF Rx Instructions: Partial Fill upon patient request. lisinopril 5 mg tablet 5 mg PO DAILY Qty: 30 0RF dicyclomine 10 mg Capsule 20 mg PO QIDACHS Qty: 60 0RF nitrofurantoin monohyd/m-cryst [Macrobid] 100 mg capsule 100 mg PO Q12H Qty: 20 0RF Rx Instructions: must administer with a meal/food phenazopyridine [Pyridium] 100 mg tablet 100 mg PO TID PRN (Reason: pain) Qty: 6 0RF dicyclomine 10 mg capsule 20 mg PO QID PRN (Reason: Abdominal Pain) estradiol [Estrace] 0.01 % (0.1 mg/gram) cream 0.25 appful vaginal DAILY Qty: 42.5 2RF Rx Instructions: Use a pea-sized amount on fingertip and apply vaginally at bedtime daily nitrofurantoin monohyd/m-cryst [Macrobid] 100 mg capsule 100 mg PO BID 7 Days Qty: 14 0RF Rx Instructions: must administer with a meal/food <Pilar Cuenca MD - Last Filed: 07/02/22 06:53> Referrals: Norbert Mccoy MD [Physician] - 3 days <Pilar Cuenca MD - Last Filed: 07/02/22 06:53>
[2022-07-02] MEDS: diphenhydrAMINE HCL 25 MG CAPSULE PO (05:16)
[2022-07-02] MEDS: Famotidine 20 MG TABLET PO (05:16)
[2022-07-02] MEDS: levoFLOXacin 500 MG TABLET PO (05:16)
[2022-07-02 06:00] VITALS: BP 200/81; PULSE 66; RESP 16; O2SAT 98
--- NOTE | 2022-07-02 06:00 | PC.NURSE ---
Pt A&Ox4, reports 9/10 right sided ABD pain, radiating to right sided flank since Wednesday. Pt also reports nausea and diarrhea, burning and pain with urination. Pt tender to touch on right side, + bowel sounds x 4 quadrants. Pt ambulated to BR with steady gait. Meds given as documented.
[2022-07-02] MEDS: oxyCODONE HCl Immed Release 5 MG TABLET PO (06:23)
[2022-07-02] MEDS: Labetalol HCL 100 MG TABLET PO ×2 (06:23→06:56)
--- NOTE | 2022-07-02 06:24 | PC.NURSE ---
Pt reports she does not feel the need to have bowel movement for sample collection at this time. Pt reports continued pain and Pt BP noted to be elevated, Dr. Cuenca notified, new orders given per APR.
[2022-07-02 06:51] VITALS: BP 195/88
[2022-07-02] MEDS: Ketorolac Tromethamine 15 MG/ML VIAL IVPUSH (08:07)
[2022-07-02 10:00] VITALS: BP 150/66; PULSE 64; RESP 16; TEMP 36.8; O2SAT 96
== END 2022-07-02 12:12 | disposition home or self-care (01) ==
PROVIDERS: Emergency Medicine; Emergency Provider Emergency Medicine
DX: N39.0 Urinary tract infection, site not specified (principal); I10 Essential (primary) hypertension; R10.30 Lower abdominal pain, unspecified; Z87.440 Personal history of urinary (tract) infections; Z79.02 Long term (current) use of antithrombotics/antiplatelets; Z79.899 Other long term (current) drug therapy
CPT/HCPCS: 36415; 80048; 81001; 85025; 87086; 96374; 99284; J1885

== ENCOUNTER 2022-07-13 13:11 | Outpatient (REF) | payer MEDICARE, SELFPAY ==
[2022-07-13 17:24] LABS: Urine Cytology See Pathology rpt
== END 2022-07-13 13:12 | disposition home or self-care (01) ==
LOC: HO.LNP 13:11
PROVIDERS: PCP Family Medicine; Visit Provider Urology
DX: R31.9 Hematuria, unspecified (principal); N32.81 Overactive bladder; N39.0 Urinary tract infection, site not specified; R10.30 Lower abdominal pain, unspecified; N32.89 Other specified disorders of bladder
CPT/HCPCS: 87086; 88112; 99212

== ENCOUNTER 2022-07-21 10:04 | Day surgery (SDC) | payer MEDICARE, SELFPAY ==
--- NOTE | 2022-07-20 09:41 | HO.ANESPROP2 ---
Documented by User: Antonia Griffin NP 07/20/22 09:42 HPI - Anesthesia Eval Consult details Narrative: 77yo F for Cystoscopy & Bladder Biopsy PMFSH Active Problems Active Problems: All Active Problems (Updated 07/13/22 @ 13:47 by Darian Jacobsen) Lower abdominal pain (Acute) Abdominal pain (Acute) History of pyelonephritis (Acute) Recurrent UTI (Acute) Pyuria (Acute) Hypertension (Acute) Hypothyroidism (Acute) Acute UTI (Acute) Acute bacterial pyelonephritis (Acute) Acute right flank pain (Acute) Hematuria (Acute) Vaginal atrophy (Acute) Chronic cystitis (Acute) Overactive bladder (Acute) Urinary urgency (Acute) Past Medical History Medical History (Updated 07/21/22 @ 13:33 by Omar Kathleen MD) Chronic kidney disease Diabetes Hematuria Hx: UTI (urinary tract infection) Incomplete emptying of bladder Pyelonephritis of right kidney Pyuria Urethral caruncle Surgical History Surgical History History of total hysterectomy Social History Social History Household Members: None Housing: Assisted Living Facility Do you presently have visiting nurse or other home services: Yes Alcohol intake: former Patient Tobacco Use Status: Never used Tobacco Use of substances other than those prescribed or required for medical reasons: No Are you DNR?: No Advance Directives: No Advance Directives Information Provided: Yes Advance Directives Date on File: 04/24/22 service: No Current occupational status: retired Meds Allergies Allergy/AdvReac Type Severity Reaction Status Date / Time droperidol [From INAPSINE] Allergy Severe HYPERACTIVE Verified 07/13/22 13:17 doxycycline [DOXYCYCLINE] Allergy Intermediate N/V/DIARRHE Verified 07/13/22 13:17 A latex [LATEX] Allergy Intermediate RASH Verified 07/13/22 13:17 amlodipine Allergy Unknown Unknown Verified 07/13/22 13:17 cephalexin [Keflex] Allergy Unknown Unknown Verified 07/13/22 13:17 ciprofloxacin [Cipro] Allergy Unknown Unknown Verified 07/13/22 13:17 levofloxacin [Levaquin] Allergy Unknown Unknown Verified 07/13/22 13:17 sulfamethoxazole AdvReac Mild GI UPSET Verified 07/13/22 13:17 [From BACTRIM] trimethoprim [From BACTRIM] AdvReac Mild GI UPSET Verified 07/13/22 13:17 Home Medications Medication Instructions Recorded Confirmed Last Taken Type dicyclomine 10 mg capsule 20 mg PO QID PRN Abdominal Pain 04/17/20 05/15/22 04/23/22 History atorvastatin 80 mg tablet 80 mg PO DAILY 05/15/22 05/15/22 Unknown History carvedilol 6.25 mg tablet 6.25 mg PO BID 05/15/22 05/15/22 Unknown History fluoxetine 40 mg capsule 40 mg PO DAILY 05/15/22 05/15/22 Unknown History insulin glargine 100 unit/mL (3 20 - 32 unit subcut DAILY 05/15/22 05/15/22 Unknown History mL) subcutaneous pen (Lantus Solostar U-100 Insulin) levothyroxine 100 mcg tablet 100 mcg PO DAILY@0600 05/15/22 05/15/22 Unknown History mirabegron 25 mg tablet,extended 25 mg PO BID 05/15/22 05/15/22 Unknown History release 24 hr (Myrbetriq) pantoprazole 40 mg tablet,delayed 40 mg PO DAILY@0630 05/15/22 05/15/22 Unknown History release insulin lispro 100 unit/mL 4 - 6 sliding scale dose subcut 07/13/22 Unknown History subcutaneous pen (Humalog KwikPen QIDACHS (U-100) Insulin) Exam Exam Date and Time: July 20, 2022 0941 Pertinent Lab Results Pertinent Lab Results: Laboratory Tests 07/02/22 07/02/22 01:55 01:55 WBC 7.3 Hgb 11.3 L Hct 35.7 L Plt Count 213 Sodium 139 Potassium 3.7 Chloride 107 Carbon Dioxide 22 BUN 19 H Creatinine 1.21 Assessment and Plan Assessment Anesthesia Assessment: Chart Reviewed Documented by User: Denisse Nash MD 07/21/22 16:08 [facility] Past Medical History Medical History (Updated 07/21/22 @ 13:33 by Omar Kathleen MD) Chronic kidney disease Diabetes Hematuria Hx: UTI (urinary tract infection) Incomplete emptying of bladder Pyelonephritis of right kidney Pyuria Urethral caruncle Family History Family history of problems with anesthesia: No Surgical History Surgical History History of total hysterectomy History of Problems with Anesthesia: No Social History Social History Household Members: None Housing: Assisted Living Facility Do you presently have visiting nurse or other home services: Yes Alcohol intake: former Patient Tobacco Use Status: Never used Tobacco Use of substances other than those prescribed or required for medical reasons: No Are you DNR?: No Advance Directives: No Advance Directives Information Provided: Yes Advance Directives Date on File: 04/24/22 service: No Current occupational status: retired Meds Allergies Allergy/AdvReac Type Severity Reaction Status Date / Time droperidol [From INAPSINE] Allergy Severe HYPERACTIVE Verified 07/13/22 13:17 doxycycline [DOXYCYCLINE] Allergy Intermediate N/V/DIARRHE Verified 07/13/22 13:17 A latex [LATEX] Allergy Intermediate RASH Verified 07/13/22 13:17 amlodipine Allergy Unknown Unknown Verified 07/13/22 13:17 cephalexin [Keflex] Allergy Unknown Unknown Verified 07/13/22 13:17 ciprofloxacin [Cipro] Allergy Unknown Unknown Verified 07/13/22 13:17 levofloxacin [Levaquin] Allergy Unknown Unknown Verified 07/13/22 13:17 sulfamethoxazole AdvReac Mild GI UPSET Verified 07/13/22 13:17 [From BACTRIM] trimethoprim [From BACTRIM] AdvReac Mild GI UPSET Verified 07/13/22 13:17 Home Medications Medication Instructions Recorded Confirmed Last Taken Type dicyclomine 10 mg capsule 20 mg PO QID PRN Abdominal Pain 04/17/20 05/15/22 04/23/22 History atorvastatin 80 mg tablet 80 mg PO DAILY 05/15/22 05/15/22 Unknown History carvedilol 6.25 mg tablet 6.25 mg PO BID 05/15/22 05/15/22 Unknown History fluoxetine 40 mg capsule 40 mg PO DAILY 05/15/22 05/15/22 Unknown History insulin glargine 100 unit/mL (3 20 - 32 unit subcut DAILY 05/15/22 05/15/22 Unknown History mL) subcutaneous pen (Lantus Solostar U-100 Insulin) levothyroxine 100 mcg tablet 100 mcg PO DAILY@0600 05/15/22 05/15/22 Unknown History mirabegron 25 mg tablet,extended 25 mg PO BID 05/15/22 05/15/22 Unknown History release 24 hr (Myrbetriq) pantoprazole 40 mg tablet,delayed 40 mg PO DAILY@0630 05/15/22 05/15/22 Unknown History release insulin lispro 100 unit/mL 4 - 6 sliding scale dose subcut 07/13/22 Unknown History subcutaneous pen (Humalog KwikPen QIDACHS (U-100) Insulin) Exam Airway Mallampati Class: II TM Dist: >3cm Neck ROM: Full Loose/Missing/Broken Teeth: No Heart: rr Lungs: cta Assessment and Plan Assessment Anesthesia Assessment: Anesthesia Plan Discussed Final Anesthetic Review Family History of Problems with Anesthesia: No History of Problems with Anesthesia: No NPO: Yes ASA Class: II Final Preanesthetic Review: No Changes in Pt Med Stat, Meds/Allgs Chart Reviewed, Consent Obtained/Reviewed and Anes Risks/Benef Reviewed Patient Risk: Low Procedure Risk: Low Anesthetic Plan Anesthetic Plan: GA Disposition: Standard PACU
[2022-07-21] VITALS (13 sets, daily range): BP systolic 100–180; BP diastolic 82–148; PULSE 68–82; RESP 12–24; TEMP 36.4–36.6; O2SAT 93–100; BMI 24.6
[2022-07-21 11:53] LABS: Glucose, Whole Blood 113 mg/dL (60-115)
--- NOTE | 2022-07-21 14:48 | W.PM.OPN ---
Operative Note Operative Note Date of Service: 07/21/22 Narrative: PREOP DIAGNOSIS: microscopic hematuria, pelvic pain, recurrent UTIs, bladder wall thickening POSTOP DIAGNOSIS: Interstitial cystitis PROCEDURE: CYSTOSCOPY HYDRODISTENTION, BLADDER BIOPSY, BLADDER INSTALLATION Anethesia: General Surgeon: Dr. Omar Kathleen Indications: Francisca is a 77-year-old female with history of recurrent UTIs, bladder pressure and microscopic hematuria. CT Imaging noted bladder wall thickening. Details of procedure: The patient was brought into the operating room placed on the OR table in supine position. 2 g of ampicillin IV. General anesthesia was administered. The patient was repositioned into lithotomy position, prepped and draped in the usual sterile fashion. Time-out was done per protocol. A 22 fr cystoscope was placed transurethrally into the bladder. Urine was drained from the bladder measuring 75 mL. urine sent for culture. The right and left ureteral orifices were visualized. The entire bladder was visualized. There were no suspicious bladder lesions seen. The bladder was filled with sterile water at 80 cm of water pressure under gravity. The bladder was distended for 1 minutes. Bladder capacity measured 350 mL. Revisualization of the bladder, noted mild/moderate glomerulations. No Theodore ulcerations. The bladder was refilled with sterile water again at 80 cm of water pressure under gravity. The bladder was distended for 2 minutes. The fluid was drained from the bladder and measured 400 mL. Random bladder biopsy from the posterior wall was done using the flexible biopsy forceps. The Bugbee was used to obtain adequate hemostasis. The cystoscope was removed. 2% lidocaine urojet was passed transurethrally, Solution of (1% lidocaine plain, 15 mL, 0.5 % Marcaine 15 mL mixed with 30, 000 units of heparin concentration 5000 units per mL total of 6 mL hepaine) instilled transurethrally into the bladder. The patient was brought out of anesthesia and taken to recovery in stable condition. Complications: None Drains: none
[2022-07-21] MEDS: fentaNYL citrate/PF 100 MCG/2 ML VIAL 50 MCG IVPUSH ×4 (15:02→15:23)
[2022-07-21] MEDS: Acetaminophen 325 MG TABLET 650 MG PO (15:10)
[2022-07-21] MEDS: Phenazopyridine HCL 100 MG TABLET 200 MG PO (15:11)
[2022-07-21] MEDS: HYDROmorphone HCl 0.5 MG/0.5 ML SYRINGE IVPUSH (15:40)
== END 2022-07-21 16:40 | disposition home or self-care (01) ==
PROVIDERS: Visit Provider Urology
PROC: (CPT 52260; principal; 2022-07-21 11:30)
DX: N30.10 Interstitial cystitis (chronic) without hematuria (principal); R10.2 Pelvic and perineal pain; N32.81 Overactive bladder; E11.22 Type 2 diabetes mellitus with diabetic chronic kidney disease; N18.9 Chronic kidney disease, unspecified; Z79.85 Long-term (current) use of injectable non-insulin antidiabetic drugs; Z79.4 Long term (current) use of insulin; Z79.899 Other long term (current) drug therapy; Z91.040 Latex allergy status; Z88.1 Allergy status to other antibiotic agents; Z88.2 Allergy status to sulfonamides; Z88.8 Allergy status to other drugs, medicaments and biological substances; Z90.49 Acquired absence of other specified parts of digestive tract
CPT/HCPCS: 52260; 52204; 82947; 87086; 88305; J0290; J1170; J1643; J2250; J2795; J3010

== ENCOUNTER 2022-08-12 15:39 | Emergency (ER) | payer MEDICARE, SELFPAY ==
[2022-08-12 16:05] VITALS: BP 199/90; PULSE 100; RESP 18; TEMP 36.3; O2SAT 99; BMI 28.9
--- NOTE | 2022-08-12 16:05 | ED.GENADULT ---
HPI - General Adult General Chief complaint: Urogenital-Female Stated complaint: UTI, in pain Time Seen by Provider: 08/12/22 19:57 Related Data Home Medications Medication Instructions Recorded Confirmed dicyclomine 10 mg capsule 20 mg PO QID PRN Abdominal Pain 04/17/20 05/15/22 atorvastatin 80 mg tablet 80 mg PO DAILY 05/15/22 05/15/22 carvedilol 6.25 mg tablet 6.25 mg PO BID 05/15/22 05/15/22 fluoxetine 40 mg capsule 40 mg PO DAILY 05/15/22 05/15/22 insulin glargine 100 unit/mL (3 20 - 32 unit subcut DAILY 05/15/22 05/15/22 mL) subcutaneous pen (Lantus Solostar U-100 Insulin) levothyroxine 100 mcg tablet 100 mcg PO DAILY@0600 05/15/22 05/15/22 mirabegron 25 mg tablet,extended 25 mg PO BID 05/15/22 05/15/22 release 24 hr (Myrbetriq) pantoprazole 40 mg tablet,delayed 40 mg PO DAILY@0630 05/15/22 05/15/22 release insulin lispro 100 unit/mL 4 - 6 sliding scale dose subcut 07/13/22 subcutaneous pen (Humalog KwikPen QIDACHS (U-100) Insulin) Previous Rx's Medication Instructions Recorded estradiol 0.01% (0.1 mg/gram) 0.25 appful vaginal DAILY #42.5 05/14/22 vaginal cream (Estrace) grams dicyclomine 10 mg capsule 20 mg PO QIDACHS #60 caps 05/18/22 hydromorphone 2 mg tablet 2 mg PO Q4H PRN Pain, Severe (Pain 05/18/22 Scale 7-10) #16 tabs lisinopril 5 mg tablet 5 mg PO DAILY #30 tabs 05/18/22 nitrofurantoin 100 mg PO BID 7 days #14 caps 06/04/22 monohydrate/macrocrystals 100 mg capsule (Macrobid) nitrofurantoin 100 mg PO Q12H #20 caps 06/29/22 monohydrate/macrocrystals 100 mg capsule (Macrobid) phenazopyridine 100 mg tablet 100 mg PO TID PRN pain 6 doses #6 06/29/22 (Pyridium) tabs diphenhydramine HCl 25 mg capsule 25 mg PO DAILY #6 caps 07/02/22 (Benadryl) famotidine 40 mg tablet (Pepcid) 40 mg PO DAILY #6 tabs 07/02/22 levofloxacin 500 mg tablet 500 mg PO DAILY #6 tabs 07/02/22 lisinopril 10 mg tablet 10 mg PO DAILY #30 tabs 07/02/22 fosfomycin tromethamine 3 gram 1 packet PO Q3D #2 ea 07/16/22 oral packet hydroxyzine pamoate 25 mg capsule 25 mg PO BEDTIME for bladder #30 07/21/22 caps phenazopyridine 200 mg tablet 200 mg PO TID urinary burning #30 07/21/22 (Pyridium) tabs cefuroxime axetil 500 mg tablet 500 mg PO BID #20 tabs 08/13/22 Allergies Allergy/AdvReac Type Severity Reaction Status Date / Time droperidol [From INAPSINE] Allergy Severe HYPERACTIVE Verified 07/13/22 13:17 doxycycline [DOXYCYCLINE] Allergy Intermediate N/V/DIARRHE Verified 07/13/22 13:17 A latex [LATEX] Allergy Intermediate RASH Verified 07/13/22 13:17 amlodipine Allergy Unknown Unknown Verified 07/13/22 13:17 cephalexin [Keflex] Allergy Unknown Unknown Verified 07/13/22 13:17 ciprofloxacin [Cipro] Allergy Unknown Unknown Verified 07/13/22 13:17 levofloxacin [Levaquin] Allergy Unknown Unknown Verified 07/13/22 13:17 sulfamethoxazole AdvReac Mild GI UPSET Verified 07/13/22 13:17 [From BACTRIM] trimethoprim [From BACTRIM] AdvReac Mild GI UPSET Verified 07/13/22 13:17 [facility] Past Medical History Medical History Chronic kidney disease Diabetes Hematuria Hx: UTI (urinary tract infection) Incomplete emptying of bladder Pyelonephritis of right kidney Pyuria Urethral caruncle Surgical History History of total hysterectomy Social History Social History Household Members: None Housing: Assisted Living Facility Do you presently have visiting nurse or other home services: Yes Alcohol intake: never Patient Tobacco Use Status: Never used Tobacco Smoked in Last 30 Days: No Use of substances other than those prescribed or required for medical reasons: No Advance Directives: Yes Advance Directives on File: Yes Advance Directives Date on File: 04/24/22 Patient : No service: No Current occupational status: retired Physical Exam ED Vital Signs: Vital Signs - 24 hr 08/12/22 16:05 08/12/22 20:00 08/12/22 22:13 Temperature 97.4 F 98.3 F Pulse Rate 100 76 Respiratory Rate 18 12 Blood Pressure 199/90 H 152/71 H Pulse Oximetry 99 95 Oxygen Delivery Method Room Air Room Air 08/13/22 01:20 Temperature 97.4 F Pulse Rate 99 Respiratory Rate 16 Blood Pressure 150/83 H Pulse Oximetry 98 Oxygen Delivery Method Room Air BMI result Body Mass Index 28.9 Course Course Course Narrative: RME - 77 yo female with history of recurrent UTIs, history of pyelonephritis, s/p cystoscopy 07/21 who presents to the ER who presents to the ER for evaluation of worsening bladder pain, nausea, vomiting, back pain since yesterday. Urine is very cloudy. Took pyridium with no improvement. Started on Macrobid at [facility] yesterday but symptoms are worse today. Feels dehydrated and in severe pain on the right side of her bladder. Hypertensive and tachycardic in triage. Plan: labs, UA, cultures Medications Administered Discontinued Medications Generic Name Dose Route Start Last Admin Trade Name Freq PRN Reason Stop Dose Admin Cefuroxime Axetil 500 mg 08/12/22 20:11 08/12/22 20:55 Cefuroxime Axetil 500 Mg Tablet PO 08/12/22 20:12 Not Given ONCE ONE Cefuroxime Axetil 500 mg 08/12/22 22:57 08/12/22 23:11 Cefuroxime Axetil 500 Mg Tablet PO 08/12/22 22:58 500 mg ONCE ONE Administration Sodium Chloride 1,000 mls @ 999 mls/hr 08/12/22 16:15 08/12/22 22:37 Ns IVCONT 08/12/22 17:15 Not Given .Q1H1M ZARA Ibuprofen 600 mg 08/12/22 20:11 08/12/22 20:56 Ibuprofen 600 Mg Tablet PO 08/12/22 20:12 Not Given ONCE ONE Insulin Human Lispro 12 unit 08/12/22 22:11 08/12/22 22:37 Insulin Lispro 100 Unit/Ml 3 Ml Vial SUBCUT 08/12/22 22:12 12 unit ONCE ONE Administration Morphine Sulfate 2 mg 08/12/22 21:19 08/12/22 21:31 Morphine Sulfate 2 Mg/Ml Cartridge IM 08/12/22 21:20 2 mg ONCE ONE Administration Protocol Morphine Sulfate 2 mg 08/12/22 22:44 08/12/22 23:10 Morphine Sulfate 2 Mg/Ml Cartridge IM 08/12/22 22:45 2 mg ONCE ONE Administration Protocol Medical Decision Making Lab Data 08/12/22 20:44 08/12/22 20:44 Labs: Lab Results 08/12/22 08/12/22 08/12/22 Range/Units 18:16 20:44 20:44 WBC 12.3 H (4.8-10.8) X10*3/uL RBC 4.50 (4.20-5.50) X10*6/uL Hgb 11.1 L (12.0-16.0) g/dl Hct 35.2 L (37.0-47.0) % MCV 78.2 L (80.0-98.0) fL MCH 24.7 L (27.0-33.0) pg MCHC 31.5 (31.0-35.0) g/dl RDW 19.2 H (11.0-16.0) % Plt Count 208 (160-400) X10*3/uL MPV 9.1 L (9.4-12.3) fL Immature Gran % (Auto) 0.4 (0.0-0.4) % Neut % (Auto) 82.0 H (45-73) % Lymph % (Auto) 12.7 L (20-40) % [place] % (Auto) 3.7 (2-11) % Eos % (Auto) 0.9 (0-4) % Baso % (Auto) 0.3 (0-2) % Lymph # (Auto) 1.6 (1.2-4.9) X10*3/uL [place] # (Auto) 0.5 (0.1-1.2) X10*3/uL Eos # (Auto) 0.1 (0.0-0.4) X10*3/uL Baso # (Auto) 0.0 (0.0-0.2) X10*3/uL Abs Immat Gran (auto) 0.05 H (0.00-0.03) X10*3/uL Absolute Neuts (auto) 10.1 H (2.0-8.3) x10*3/uL Absolute Nucleated RBC 0.000 (0.0-0.012) X10*3/uL Nucleated RBC % (auto) 0.0 (0.0-0.2) /100WBC Sodium 128 L (135-145) mmol/L Potassium 5.2 H D (3.3-5.1) mmol/L Chloride 99 (96-108) mmol/L Carbon Dioxide 19 L (22-29) mmol/L Anion Gap 15 (12-20) BUN 45 H (9-16) mg/dL Creatinine 1.94 H (0.5-1.4) mg/dL Estim Creat Clear Calc 25.5 Estimated GFR 25 POC Glucose (60-115) mg/dL Random Glucose 421 H* (60-115) mg/dL Lactic Acid (0.5-2.0) mmol/L Calcium 8.6 (8.4-10.2) mg/dL Magnesium 2.1 (1.6-2.6) mg/dL Total Bilirubin 0.8 (0.0-1.0) mg/dL Direct Bilirubin 0.2 (0.0-0.5) mg/dL AST 12 (5-31) U/L ALT 7 (0-31) U/L Alkaline Phosphatase 137 H (39-117) U/L Total Protein 6.6 (6.5-8.0) g/dL Albumin 3.8 (3.5-5.0) g/dL Urine Color [place] Urine Appearance Hazy Urine pH 5.5 (5.0-9.0) Ur Specific [place] 1.015 (1.005-1.025) Urine Protein 100 (2+) H (Neg-Trace) mg/dL Urine Glucose (UA) >=1000 H (Negative) mg/dL Urine Ketones Negative (Negative) mg/dL Urine Blood Small (1+) H (Negative) Urine Nitrite Positive H (Negative) Ur Leukocyte Esterase Moderate (2+) H (Negative) Urine RBC 3-5 H (0-2) /HPF Urine WBC >50 H (0-5) /HPF Ur Squamous Epith Cells 3-5 (0-2) /HPF Urine Bacteria 1+ (None Seen) Hyaline Casts 0-2 (0-2) /LPF 08/12/22 08/12/22 Range/Units 20:44 23:21 WBC (4.8-10.8) X10*3/uL RBC (4.20-5.50) X10*6/uL Hgb (12.0-16.0) g/dl Hct (37.0-47.0) % MCV (80.0-98.0) fL MCH (27.0-33.0) pg MCHC (31.0-35.0) g/dl RDW (11.0-16.0) % Plt Count (160-400) X10*3/uL MPV (9.4-12.3) fL Immature Gran % (Auto) (0.0-0.4) % Neut % (Auto) (45-73) % Lymph % (Auto) (20-40) % [place] % (Auto) (2-11) % Eos % (Auto) (0-4) % Baso % (Auto) (0-2) % Lymph # (Auto) (1.2-4.9) X10*3/uL [place] # (Auto) (0.1-1.2) X10*3/uL Eos # (Auto) (0.0-0.4) X10*3/uL Baso # (Auto) (0.0-0.2) X10*3/uL Abs Immat Gran (auto) (0.00-0.03) X10*3/uL Absolute Neuts (auto) (2.0-8.3) x10*3/uL Absolute Nucleated RBC (0.0-0.012) X10*3/uL Nucleated RBC % (auto) (0.0-0.2) /100WBC Sodium (135-145) mmol/L Potassium (3.3-5.1) mmol/L Chloride (96-108) mmol/L Carbon Dioxide (22-29) mmol/L Anion Gap (12-20) BUN (9-16) mg/dL Creatinine (0.5-1.4) mg/dL Estim Creat Clear Calc Estimated GFR POC Glucose 314 H (60-115) mg/dL Random Glucose (60-115) mg/dL Lactic Acid 1.3 (0.5-2.0) mmol/L Calcium (8.4-10.2) mg/dL Magnesium (1.6-2.6) mg/dL Total Bilirubin (0.0-1.0) mg/dL Direct Bilirubin (0.0-0.5) mg/dL AST (5-31) U/L ALT (0-31) U/L Alkaline Phosphatase (39-117) U/L Total Protein (6.5-8.0) g/dL Albumin (3.5-5.0) g/dL Urine Color Urine Appearance Urine pH (5.0-9.0) Ur Specific [place] (1.005-1.025) Urine Protein (Neg-Trace) mg/dL Urine Glucose (UA) (Negative) mg/dL Urine Ketones (Negative) mg/dL Urine Blood (Negative) Urine Nitrite (Negative) Ur Leukocyte Esterase (Negative) Urine RBC (0-2) /HPF Urine WBC (0-5) /HPF Ur Squamous Epith Cells (0-2) /HPF Urine Bacteria (None Seen) Hyaline Casts (0-2) /LPF Discharge Plan Discharge Clinical Impression: Acute UTI Patient Disposition: Home, Self-Care Instructions: Urinary Tract Infection in Older Adults (ED) Prescriptions: New cefuroxime axetil 500 mg tablet 500 mg PO BID Qty: 20 0RF No Action fosfomycin tromethamine 3 gram packet 1 packet PO Q3D Qty: 2 0RF insulin lispro [Humalog KwikPen Insulin] 100 unit/mL insulin pen 4 - 6 sliding scale dose subcut QIDACHS Protocol: Insulin Correction Scale Less than or equal to 110 ---- Give (units): 0 111 to 150 Give (units): 0 151 to 200 Give (units): 2 201 to 250 Give (units): 4 251 to 300 Give (units): 6 301 to 350 Give (units): 8 Greater than 350 Give (units): 10 Call MD if Blood Glucose > : 350 atorvastatin 80 mg tablet 80 mg PO DAILY carvedilol 6.25 mg tablet 6.25 mg PO BID levothyroxine 100 mcg tablet 100 mcg PO DAILY@0600 pantoprazole 40 mg tablet,delayed release (DR/EC) 40 mg PO DAILY@0630 insulin glargine [Lantus Solostar U-100 Insulin] 100 unit/mL (3 mL) insulin pen 20 - 32 unit subcut DAILY Myrbetriq 25 mg tablet extended release 24 hr 25 mg PO BID fluoxetine 40 mg capsule 40 mg PO DAILY hydromorphone 2 mg Tablet 2 mg PO Q4H PRN (Reason: Pain, Severe (Pain Scale 7-10)) Qty: 16 0RF Rx Instructions: Partial Fill upon patient request. lisinopril 5 mg tablet 5 mg PO DAILY Qty: 30 0RF dicyclomine 10 mg Capsule 20 mg PO QIDACHS Qty: 60 0RF nitrofurantoin monohyd/m-cryst [Macrobid] 100 mg capsule 100 mg PO Q12H Qty: 20 0RF Rx Instructions: must administer with a meal/food phenazopyridine [Pyridium] 100 mg tablet 100 mg PO TID PRN (Reason: pain) Qty: 6 0RF levofloxacin 500 mg tablet 500 mg PO DAILY Qty: 6 0RF famotidine [Pepcid] 40 mg tablet 40 mg PO DAILY Qty: 6 0RF diphenhydramine HCl [Benadryl] 25 mg capsule 25 mg PO DAILY Qty: 6 0RF Rx Instructions: Take together with your antibiotic and Pepcid lisinopril 10 mg tablet 10 mg PO DAILY Qty: 30 0RF hydroxyzine pamoate 25 mg capsule 25 mg PO BEDTIME Qty: 30 1RF phenazopyridine [Pyridium] 200 mg tablet 200 mg PO TID Qty: 30 0RF dicyclomine 10 mg capsule 20 mg PO QID PRN (Reason: Abdominal Pain) estradiol [Estrace] 0.01 % (0.1 mg/gram) cream 0.25 appful vaginal DAILY Qty: 42.5 2RF Rx Instructions: Use a pea-sized amount on fingertip and apply vaginally at bedtime daily nitrofurantoin monohyd/m-cryst [Macrobid] 100 mg capsule 100 mg PO BID 7 Days Qty: 14 0RF Rx Instructions: must administer with a meal/food Interventions: ED Discharge Assessment Last Done: 08/13/22 00:40 Discharge Date/Time: 08/13/22 01:21
[2022-08-12 18:24] LABS: Appearance Urine Hazy; Color Urine Orange; Glucose Urine UA >=1000 mg/dL (Negative); Leukocyte Esterase Urine Moderate (2+) (Negative); Nitrite Urine Positive (Negative); PH 5.5 (5.0-9.0); Specific Gravity - Urine 1.015 (1.005-1.025); UMIC TRIGGER UACC YES; Urine Blood Small (1+) (Negative); Urine Ketones Negative (Negative); Urine Protein 100 (2+) mg/dL (Neg-Trace)
[2022-08-12 18:46] LABS: Bacteria Urine 1+ (None Seen); Hyaline Casts Urine 0-2 /LPF (0-2); UACC Culture Trigger YES; WBC Urine >50 /HPF (0-5)
--- NOTE | 2022-08-12 20:14 | ED.FEMALEGU ---
HPI - Female Genitourinary General Chief complaint: Urogenital-Female Stated complaint: UTI, in pain Time Seen by Provider: 08/12/22 19:57 Source: patient Mode of arrival: ambulatory Limitations: no limitations History of Present Illness HPI Narrative: 77-year-old came in for evaluation of possible UTI. Patient was generalized abdominal pain, generalized body ache, subjective fever, no chills. Increased urinary frequency and dysuria, lower abdominal pain right more than left, no nausea, no vomiting, normal bowel movement. Patient had history of appendectomy, cholecystectomy, small-bowel obstruction. Related Data Home Medications Medication Instructions Recorded Confirmed dicyclomine 10 mg capsule 20 mg PO QID PRN Abdominal Pain 04/17/20 05/15/22 atorvastatin 80 mg tablet 80 mg PO DAILY 05/15/22 05/15/22 carvedilol 6.25 mg tablet 6.25 mg PO BID 05/15/22 05/15/22 fluoxetine 40 mg capsule 40 mg PO DAILY 05/15/22 05/15/22 insulin glargine 100 unit/mL (3 20 - 32 unit subcut DAILY 05/15/22 05/15/22 mL) subcutaneous pen (Lantus Solostar U-100 Insulin) levothyroxine 100 mcg tablet 100 mcg PO DAILY@0600 05/15/22 05/15/22 mirabegron 25 mg tablet,extended 25 mg PO BID 05/15/22 05/15/22 release 24 hr (Myrbetriq) pantoprazole 40 mg tablet,delayed 40 mg PO DAILY@0630 05/15/22 05/15/22 release insulin lispro 100 unit/mL 4 - 6 sliding scale dose subcut 07/13/22 subcutaneous pen (Humalog KwikPen QIDACHS (U-100) Insulin) Previous Rx's Medication Instructions Recorded estradiol 0.01% (0.1 mg/gram) 0.25 appful vaginal DAILY #42.5 05/14/22 vaginal cream (Estrace) grams dicyclomine 10 mg capsule 20 mg PO QIDACHS #60 caps 05/18/22 hydromorphone 2 mg tablet 2 mg PO Q4H PRN Pain, Severe (Pain 05/18/22 Scale 7-10) #16 tabs lisinopril 5 mg tablet 5 mg PO DAILY #30 tabs 05/18/22 nitrofurantoin 100 mg PO BID 7 days #14 caps 06/04/22 monohydrate/macrocrystals 100 mg capsule (Macrobid) nitrofurantoin 100 mg PO Q12H #20 caps 06/29/22 monohydrate/macrocrystals 100 mg capsule (Macrobid) phenazopyridine 100 mg tablet 100 mg PO TID PRN pain 6 doses #6 06/29/22 (Pyridium) tabs diphenhydramine HCl 25 mg capsule 25 mg PO DAILY #6 caps 07/02/22 (Benadryl) famotidine 40 mg tablet (Pepcid) 40 mg PO DAILY #6 tabs 07/02/22 levofloxacin 500 mg tablet 500 mg PO DAILY #6 tabs 07/02/22 lisinopril 10 mg tablet 10 mg PO DAILY #30 tabs 07/02/22 fosfomycin tromethamine 3 gram 1 packet PO Q3D #2 ea 07/16/22 oral packet hydroxyzine pamoate 25 mg capsule 25 mg PO BEDTIME for bladder #30 07/21/22 caps phenazopyridine 200 mg tablet 200 mg PO TID urinary burning #30 07/21/22 (Pyridium) tabs cefuroxime axetil 500 mg tablet 500 mg PO BID #20 tabs 08/13/22 Allergies Allergy/AdvReac Type Severity Reaction Status Date / Time droperidol [From INAPSINE] Allergy Severe HYPERACTIVE Verified 07/13/22 13:17 doxycycline [DOXYCYCLINE] Allergy Intermediate N/V/DIARRHE Verified 07/13/22 13:17 A latex [LATEX] Allergy Intermediate RASH Verified 07/13/22 13:17 amlodipine Allergy Unknown Unknown Verified 07/13/22 13:17 cephalexin [Keflex] Allergy Unknown Unknown Verified 07/13/22 13:17 ciprofloxacin [Cipro] Allergy Unknown Unknown Verified 07/13/22 13:17 levofloxacin [Levaquin] Allergy Unknown Unknown Verified 07/13/22 13:17 sulfamethoxazole AdvReac Mild GI UPSET Verified 07/13/22 13:17 [From BACTRIM] trimethoprim [From BACTRIM] AdvReac Mild GI UPSET Verified 07/13/22 13:17 Review of Systems Review of Systems: All other systems are reviewed and are negative Constitutional: Reports as per HPI and Reports no additional constitutional complaints Eyes: Reports as per HPI and Reports no additional eye complaints Reports system reviewed and no additional complaints, except as documented Cardiovascular: Reports as per HPI and Reports no additional cardiovascular complaints Respiratory: Reports as per HPI and Reports no additional respiratory complaints Gastrointestinal: Reports as per HPI and Reports no additional gastrointestinal complaints Genitourinary: Reports no additional female genitourinary complaints Musculoskeletal: Reports no additional musculoskeletal complaints Skin/Breast: Reports system reviewed and no additional complaints, except as docu Psychiatric: Reports no additional psychiatric complaints Endocrine: Reports no additional endocrine complaints Hematologic/Lymphatic: Reports no additional hematologic/lymphatic complaints Allergic/Immunologic: Reports no additional allergic/immunologic complaints Reports system reviewed and no additional complaints, except as documented and Reports Abnormal speech present [facility] Past Medical History Medical History Chronic kidney disease Diabetes Hematuria Hx: UTI (urinary tract infection) Incomplete emptying of bladder Pyelonephritis of right kidney Pyuria Urethral caruncle Surgical History History of total hysterectomy Social History Social History Household Members: None Housing: Assisted Living Facility Do you presently have visiting nurse or other home services: Yes Alcohol intake: never Patient Tobacco Use Status: Never used Tobacco Smoked in Last 30 Days: No Use of substances other than those prescribed or required for medical reasons: No Advance Directives: Yes Advance Directives on File: Yes Advance Directives Date on File: 04/24/22 Patient : No service: No Current occupational status: retired Physical Exam Vital Signs: Vital Signs: Last Vital Signs Temp 98.3 F 08/12/22 22:13 Pulse 76 08/12/22 22:13 Resp 12 08/12/22 22:13 BP 152/71 H 08/12/22 22:13 Pulse Ox 95 08/12/22 22:13 O2 Del Method Room Air 08/12/22 22:13 BMI result Body Mass Index 28.9 Vital signs have been reviewed as appeared to be correct. Blood pressure normal. Heart rate normal. Respiration rate normal. Temperature normal. Oxygen saturation normal. Appearance: Alert. Oriented X3. No acute distress. Head: Normal external exam. Normocephalic. Atraumatic. No Cruz signs noted. No raccoon eyes noted Eyes: PERRLA. EOMI. Conjunctiva and sclera normal. Eyelids normal. ENT: TM's Normal. Pharynx normal. Uvula midline. Moist mucous membranes. No trismus noted. No drooling noted. No muffled voice noted. Neck: Normal inspection. Neck supple. FROM. No adenopathy. Thyroid Normal. No meningeal signs. No neck mass noted. CVS: Normal heart rate and rhythm. Heart sound normal. No murmurs noted. Pulses normal throughout. Respiratory: No respiratory distress. Painless inspiration. Breath sounds normal. No wheezes/rales/rhonchi noted. Chest nontender. No accessory muscle usage noted or decreased air movement noted. Abdomen: Soft and nontender. Bowel sounds normal in all 4 quadrants. No distention noted. No organomegaly noted. No visible injury noted. Back: No CVA tenderness. Full range of motion noted. Skin: Skin warm and dry. Normal skin color. Normal skin turgor. No rashes/lesions/lacerations noted. Extremities: No lower extremity edema. Extremities exhibit normal range of motion. Extremities nontender. Neuro: Oriented X 3. Cranial nerve exam: II-XII are grossly intact No motor deficit. No sensory deficit. Reflexes normal. Course Course Course Narrative: Patient is able to tolerate p.o. intake abdominal pain was controlled with oral analgesia, hyperglycemia was controlled with subcu insulin and oral hydration. Will discharge the patient with cefuroxime for 10 days. Patient and CKD stage 3 follow with client program manager, patient is not on dialysis patient was instructed to call Dr. Norman for further evaluation of your kidney. Take the antibiotic as prescribed and drink plenty of fluids to keep yourself hydrated. Medications Administered Discontinued Medications Generic Name Dose Route Start Last Admin Trade Name Freq PRN Reason Stop Dose Admin Cefuroxime Axetil 500 mg 08/12/22 20:11 08/12/22 20:55 Cefuroxime Axetil 500 Mg Tablet PO 08/12/22 20:12 Not Given ONCE ONE Cefuroxime Axetil 500 mg 08/12/22 22:57 08/12/22 23:11 Cefuroxime Axetil 500 Mg Tablet PO 08/12/22 22:58 500 mg ONCE ONE Administration Sodium Chloride 1,000 mls @ 999 mls/hr 08/12/22 16:15 08/12/22 22:37 Ns IVCONT 08/12/22 17:15 Not Given .Q1H1M ZARA Ibuprofen 600 mg 08/12/22 20:11 08/12/22 20:56 Ibuprofen 600 Mg Tablet PO 08/12/22 20:12 Not Given ONCE ONE Insulin Human Lispro 12 unit 08/12/22 22:11 08/12/22 22:37 Insulin Lispro 100 Unit/Ml 3 Ml Vial SUBCUT 08/12/22 22:12 12 unit ONCE ONE Administration Morphine Sulfate 2 mg 08/12/22 21:19 08/12/22 21:31 Morphine Sulfate 2 Mg/Ml Cartridge IM 08/12/22 21:20 2 mg ONCE ONE Administration Protocol Morphine Sulfate 2 mg 08/12/22 22:44 08/12/22 23:10 Morphine Sulfate 2 Mg/Ml Cartridge IM 08/12/22 22:45 2 mg ONCE ONE Administration Protocol Medical Decision Making Differential Diagnosis Differential Diagnoses: The differential diagnosis associated with the presentation includes (UTI, pyelonephritis, hyperglycemia, DKA, electrolyte abnormality, severe anemia.) Admission/Observation Consideration of admission/observation: Escalation of care including admission/observation considered Lab Data MDM Lab Attestation statement: I reviewed the patient's lab results. 08/12/22 20:44 08/12/22 20:44 Labs: Lab Results 08/12/22 08/12/22 08/12/22 Range/Units 18:16 20:44 20:44 WBC 12.3 H (4.8-10.8) X10*3/uL RBC 4.50 (4.20-5.50) X10*6/uL Hgb 11.1 L (12.0-16.0) g/dl Hct 35.2 L (37.0-47.0) % MCV 78.2 L (80.0-98.0) fL MCH 24.7 L (27.0-33.0) pg MCHC 31.5 (31.0-35.0) g/dl RDW 19.2 H (11.0-16.0) % Plt Count 208 (160-400) X10*3/uL MPV 9.1 L (9.4-12.3) fL Immature Gran % (Auto) 0.4 (0.0-0.4) % Neut % (Auto) 82.0 H (45-73) % Lymph % (Auto) 12.7 L (20-40) % [place]ver % (Auto) 3.7 (2-11) % Eos % (Auto) 0.9 (0-4) % Baso % (Auto) 0.3 (0-2) % Lymph # (Auto) 1.6 (1.2-4.9) X10*3/uL [place] # (Auto) 0.5 (0.1-1.2) X10*3/uL Eos # (Auto) 0.1 (0.0-0.4) X10*3/uL Baso # (Auto) 0.0 (0.0-0.2) X10*3/uL Abs Immat Gran (auto) 0.05 H (0.00-0.03) X10*3/uL Absolute Neuts (auto) 10.1 H (2.0-8.3) x10*3/uL Absolute Nucleated RBC 0.000 (0.0-0.012) X10*3/uL Nucleated RBC % (auto) 0.0 (0.0-0.2) /100WBC Sodium 128 L (135-145) mmol/L Potassium 5.2 H D (3.3-5.1) mmol/L Chloride 99 (96-108) mmol/L Carbon Dioxide 19 L (22-29) mmol/L Anion Gap 15 (12-20) BUN 45 H (9-16) mg/dL Creatinine 1.94 H (0.5-1.4) mg/dL Estim Creat Clear Calc 25.5 Estimated GFR 25 POC Glucose (60-115) mg/dL Random Glucose 421 H* (60-115) mg/dL Lactic Acid (0.5-2.0) mmol/L Calcium 8.6 (8.4-10.2) mg/dL Magnesium 2.1 (1.6-2.6) mg/dL Total Bilirubin 0.8 (0.0-1.0) mg/dL Direct Bilirubin 0.2 (0.0-0.5) mg/dL AST 12 (5-31) U/L ALT 7 (0-31) U/L Alkaline Phosphatase 137 H (39-117) U/L Total Protein 6.6 (6.5-8.0) g/dL Albumin 3.8 (3.5-5.0) g/dL Urine Color [place] Urine Appearance Hazy Urine pH 5.5 (5.0-9.0) Ur Specific [place] 1.015 (1.005-1.025) Urine Protein 100 (2+) H (Neg-Trace) mg/dL Urine Glucose (UA) >=1000 H (Negative) mg/dL Urine Ketones Negative (Negative) mg/dL Urine Blood Small (1+) H (Negative) Urine Nitrite Positive H (Negative) Ur Leukocyte Esterase Moderate (2+) H (Negative) Urine RBC 3-5 H (0-2) /HPF Urine WBC >50 H (0-5) /HPF Ur Squamous Epith Cells 3-5 (0-2) /HPF Urine Bacteria 1+ (None Seen) Hyaline Casts 0-2 (0-2) /LPF 08/12/22 08/12/22 Range/Units 20:44 23:21 WBC (4.8-10.8) X10*3/uL RBC (4.20-5.50) X10*6/uL Hgb (12.0-16.0) g/dl Hct (37.0-47.0) % MCV (80.0-98.0) fL MCH (27.0-33.0) pg MCHC (31.0-35.0) g/dl RDW (11.0-16.0) % Plt Count (160-400) X10*3/uL MPV (9.4-12.3) fL Immature Gran % (Auto) (0.0-0.4) % Neut % (Auto) (45-73) % Lymph % (Auto) (20-40) % Carver % (Auto) (2-11) % Eos % (Auto) (0-4) % Baso % (Auto) (0-2) % Lymph # (Auto) (1.2-4.9) X10*3/uL [place] # (Auto) (0.1-1.2) X10*3/uL Eos # (Auto) (0.0-0.4) X10*3/uL Baso # (Auto) (0.0-0.2) X10*3/uL Abs Immat Gran (auto) (0.00-0.03) X10*3/uL Absolute Neuts (auto) (2.0-8.3) x10*3/uL Absolute Nucleated RBC (0.0-0.012) X10*3/uL Nucleated RBC % (auto) (0.0-0.2) /100WBC Sodium (135-145) mmol/L Potassium (3.3-5.1) mmol/L Chloride (96-108) mmol/L Carbon Dioxide (22-29) mmol/L Anion Gap (12-20) BUN (9-16) mg/dL Creatinine (0.5-1.4) mg/dL Estim Creat Clear Calc Estimated GFR POC Glucose 314 H (60-115) mg/dL Random Glucose (60-115) mg/dL Lactic Acid 1.3 (0.5-2.0) mmol/L Calcium (8.4-10.2) mg/dL Magnesium (1.6-2.6) mg/dL Total Bilirubin (0.0-1.0) mg/dL Direct Bilirubin (0.0-0.5) mg/dL AST (5-31) U/L ALT (0-31) U/L Alkaline Phosphatase (39-117) U/L Total Protein (6.5-8.0) g/dL Albumin (3.5-5.0) g/dL Urine Color Urine Appearance Urine pH (5.0-9.0) Ur Specific [place] (1.005-1.025) Urine Protein (Neg-Trace) mg/dL Urine Glucose (UA) (Negative) mg/dL Urine Ketones (Negative) mg/dL Urine Blood (Negative) Urine Nitrite (Negative) Ur Leukocyte Esterase (Negative) Urine RBC (0-2) /HPF Urine WBC (0-5) /HPF Ur Squamous Epith Cells (0-2) /HPF Urine Bacteria (None Seen) Hyaline Casts (0-2) /LPF Discharge Plan Discharge Clinical Impression: Acute UTI Patient Disposition: Home, Self-Care Instructions: Urinary Tract Infection in Older Adults (ED) Prescriptions: New cefuroxime axetil 500 mg tablet 500 mg PO BID Qty: 20 0RF No Action fosfomycin tromethamine 3 gram packet 1 packet PO Q3D Qty: 2 0RF insulin lispro [Humalog KwikPen Insulin] 100 unit/mL insulin pen 4 - 6 sliding scale dose subcut QIDACHS Protocol: Insulin Correction Scale Less than or equal to 110 ---- Give (units): 0 111 to 150 Give (units): 0 151 to 200 Give (units): 2 201 to 250 Give (units): 4 251 to 300 Give (units): 6 301 to 350 Give (units): 8 Greater than 350 Give (units): 10 Call MD if Blood Glucose > : 350 atorvastatin 80 mg tablet 80 mg PO DAILY carvedilol 6.25 mg tablet 6.25 mg PO BID levothyroxine 100 mcg tablet 100 mcg PO DAILY@0600 pantoprazole 40 mg tablet,delayed release (DR/EC) 40 mg PO DAILY@0630 insulin glargine [Lantus Solostar U-100 Insulin] 100 unit/mL (3 mL) insulin pen 20 - 32 unit subcut DAILY Myrbetriq 25 mg tablet extended release 24 hr 25 mg PO BID fluoxetine 40 mg capsule 40 mg PO DAILY hydromorphone 2 mg Tablet 2 mg PO Q4H PRN (Reason: Pain, Severe (Pain Scale 7-10)) Qty: 16 0RF Rx Instructions: Partial Fill upon patient request. lisinopril 5 mg tablet 5 mg PO DAILY Qty: 30 0RF dicyclomine 10 mg Capsule 20 mg PO QIDACHS Qty: 60 0RF nitrofurantoin monohyd/m-cryst [Macrobid] 100 mg capsule 100 mg PO Q12H Qty: 20 0RF Rx Instructions: must administer with a meal/food phenazopyridine [Pyridium] 100 mg tablet 100 mg PO TID PRN (Reason: pain) Qty: 6 0RF levofloxacin 500 mg tablet 500 mg PO DAILY Qty: 6 0RF famotidine [Pepcid] 40 mg tablet 40 mg PO DAILY Qty: 6 0RF diphenhydramine HCl [Benadryl] 25 mg capsule 25 mg PO DAILY Qty: 6 0RF Rx Instructions: Take together with your antibiotic and Pepcid lisinopril 10 mg tablet 10 mg PO DAILY Qty: 30 0RF hydroxyzine pamoate 25 mg capsule 25 mg PO BEDTIME Qty: 30 1RF phenazopyridine [Pyridium] 200 mg tablet 200 mg PO TID Qty: 30 0RF dicyclomine 10 mg capsule 20 mg PO QID PRN (Reason: Abdominal Pain) estradiol [Estrace] 0.01 % (0.1 mg/gram) cream 0.25 appful vaginal DAILY Qty: 42.5 2RF Rx Instructions: Use a pea-sized amount on fingertip and apply vaginally at bedtime daily nitrofurantoin monohyd/m-cryst [Macrobid] 100 mg capsule 100 mg PO BID 7 Days Qty: 14 0RF Rx Instructions: must administer with a meal/food Interventions: ED Discharge Assessment Last Done: 08/13/22 00:40
[2022-08-12 20:52] LABS: MANUAL DIFF FLAG NO
[2022-08-12 20:53] LABS: Basophils Percent Auto 0.3 % (0-2); Eosinophils Absolute Auto 0.1 X10*3/uL (0.0-0.4); Eosinophils Percent Auto 0.9 % (0-4); Hematocrit 35.2 % (37.0-47.0); Hemoglobin 11.1 g/dl (12.0-16.0); Imm Gran Abs Auto 0.05 X10*3/uL (0.00-0.03); Imm Gran Pct Auto 0.4 % (0.0-0.4); Lymphocytes Absolute Auto 1.6 X10*3/uL (1.2-4.9); Lymphocytes Percent Auto 12.7 % (20-40); Mean Corpuscular HGB Conc 31.5 g/dl (31.0-35.0); Mean Corpuscular Hemoglobin 24.7 pg (27.0-33.0); Mean Corpuscular Volume 78.2 fL (80.0-98.0); Mean Platelet Volume 9.1 fL (9.4-12.3); Monocytes Absolute Auto 0.5 X10*3/uL (0.1-1.2); Monocytes Percent Auto 3.7 % (2-11); Neutrophils Absolute Auto 10.1 x10*3/uL (2.0-8.3); Platelet Count 208 X10*3/uL (160-400); Red Cell Distribution Width 19.2 % (11.0-16.0); White Blood Count 12.3 X10*3/uL (4.8-10.8)
[2022-08-12 21:02] LABS: Lactic Acid 1.3 mmol/L (0.5-2.0)
[2022-08-12 21:13] LABS: Alanine Aminotransferase 7 U/L (0-31); Albumin Level 3.8 g/dL (3.5-5.0); Alkaline Phosphatase 137 U/L (39-117); Anion Gap 15 (12-20); Aspartate Amino Transferase 12 U/L (5-31); Bilirubin Direct 0.2 mg/dL (0.0-0.5); Bilirubin Total 0.8 mg/dL (0.0-1.0); Blood Urea Nitrogen 45 mg/dL (9-16); Calcium 8.6 mg/dL (8.4-10.2); Carbon Dioxide 19 mmol/L (22-29); Chloride 99 mmol/L (96-108); Creatinine Clr Calc Pharmacy 25.5; Estimated Glomerular Filt Rate 25; Glucose Random 421 mg/dL (60-115); Magnesium 2.1 mg/dL (1.6-2.6); Potassium 5.2 mmol/L (3.3-5.1); Sodium 128 mmol/L (135-145); Total Protein 6.6 g/dL (6.5-8.0)
[2022-08-12] MEDS: Morphine Sulfate 2 MG/ML CARTRIDGE IM ×2 (21:31→23:10)
[2022-08-12 22:13] VITALS: BP 152/71; PULSE 76; RESP 12; TEMP 36.8; O2SAT 95
[2022-08-12] MEDS: Insulin Lispro 100 UNIT/ML 3 ML VIAL 12 UNIT SUBCUT (22:37)
[2022-08-12 23:28] LABS: Glucose, Whole Blood 314 mg/dL (60-115)
[2022-08-13 01:20] VITALS: BP 150/83; PULSE 99; RESP 16; TEMP 36.3; O2SAT 98
--- NOTE | 2022-08-13 01:42 | MHC.EDTECH ---
patient said to this pct that she was not feeling well ,notice patient was sweaty and md jeff aware ,blood sugar check it was 63 ,patient was given 2 cups of orange juice ,a peanut butter and jelly sandwich and natacha cracker with peanut butter ,will monitor blood sugar .
--- NOTE | 2022-08-13 02:33 | MHC.EDTECH ---
PATIENT BLOOD SUGAR WAS RE CHECK IT WAS 159 ,AARTI MCALLISTER AND LO ARCHIBALD AWARE .
[2022-08-13] MEDS: oxyCODONE HCl Immed Release 5 MG TABLET PO (03:08)
[2022-08-13 06:40] LABS: Glucose, Whole Blood 63 mg/dL (60-115)
[2022-08-13 06:40] LABS: Glucose, Whole Blood 159 mg/dL (60-115)
== END 2022-08-13 04:08 | disposition home or self-care (01) ==
PROVIDERS: Physician Assistant; Emergency Provider Emergency Medicine
DX: N30.10 Interstitial cystitis (chronic) without hematuria (principal); B96.1 Klebsiella pneumoniae [K. pneumoniae] as the cause of diseases classified elsewhere; R10.30 Lower abdominal pain, unspecified; K58.9 Irritable bowel syndrome, unspecified
CPT/HCPCS: 36415; 80048; 80076; 81001; 82947; 83605; 83735; 85025; 87040; 87086; 87088; 87186; 96372; 99284; J2270

== ENCOUNTER 2022-09-03 13:13 | Outpatient (AMB) | payer MEDICARE, SELFPAY ==
--- NOTE | 2022-09-03 13:10 | MHC.OFFVIS ---
Intake Intake Visit Reasons: 3w follow up Intake Note: Patient presents today for 3wk follow up Meds: none Antibiotic: doxycycline, cephalexin, ciprofloxacin, levofloxacin, sulfamethoxazole, trimethoprim Blood Thinner: none PVR:9ml's ? Water Resource Agent Required: No Accompanied by: Self / Same As Patient Allergies droperidol [From INAPSINE] Allergy (Severe, Verified 09/03/22 13:29) HYPERACTIVE doxycycline [DOXYCYCLINE] Allergy (Intermediate, Verified 09/03/22 13:29) N/V/DIARRHEA latex [LATEX] Allergy (Intermediate, Verified 09/03/22 13:29) RASH amlodipine Allergy (Unknown, Verified 09/03/22 13:29) Unknown cephalexin [Keflex] Allergy (Unknown, Verified 09/03/22 13:29) Unknown ciprofloxacin [Cipro] Allergy (Unknown, Verified 09/03/22 13:29) Unknown levofloxacin [Levaquin] Allergy (Unknown, Verified 09/03/22 13:29) Unknown sulfamethoxazole [From BACTRIM] Adverse Reaction (Mild, Verified 09/03/22 13:29) GI UPSET trimethoprim [From BACTRIM] Adverse Reaction (Mild, Verified 09/03/22 13:29) GI UPSET HPI HPI Comments History of Present Illness Details Francisca is a 77-year-old female who presents to the office for chronic bladder pain and recurrent UTIs. 09/03/22-- The patient is s/p cystoscopy, hydro distention and bladder biopsy on 07/21/22. Bladder capacity was 400 mL, mild to moderate glomerulations noted. She was in the ER on 08/12/22 and was treated for UTI. She was treated with amoxicillin. She is being followed for recurrent UTIs, chronic bladder pain, and overactive bladder. She has been prescribed with Estrace cream and Myrbetriq. Medical history notable for IBS. Also, discussed with patient for bladder health included OTC D-mannose and cranberry supplements. She has had previous CT imaging which I have discussed with her and are negative for kidney stones. Imaging results reviewed--CTAP results reviewed--05/13/22-- Kidneys: WNL. No renal calculi present. CAT scan results reviewed--05/22/22--Negative for kidney stones and normal kidney enhancement. Findings of mild bladder wall thickening. The patient is taking Myrbetriq 25 mg and states her urinary symptoms are manageable during the day but has urinary urgency as soon she wakes up. States she is not using Estrace cream regularly. Evaluation today UA-- Blood: negative, leukocytes: negative. Bladder scan PVR: 9 mL. Urine cytology results reviewed?07/22/22-- Negative for malignancy. Plan: Myrbetriq 50 mg at night and take Myrbetriq 25 mg in the morning. Vagifem was ordered to use 2 days a week. Discontinue Estrace cream. Discussed to try cranberry supplements. Follow-up after 4 months. [facility] Medical History Chronic kidney disease Diabetes Hematuria Hx: UTI (urinary tract infection) Incomplete emptying of bladder Pyelonephritis of right kidney Pyuria Urethral caruncle Surgical History History of total hysterectomy Social History Household Members: None Housing: Assisted Living Facility Do you presently have visiting nurse or other home services: Yes Alcohol intake: never Patient Tobacco Use Status: Never used Tobacco Advance Directives Date on File: 04/24/22 service: No Current occupational status: retired Review of Systems Const All systems reviewed & are unremarkable except as noted in HPI and below Reports no additional complaints Eyes Reports no additional complaints ENT Reports no additional complaints Card Denies dyspnea Resp Denies cough and Denies dyspnea GI Reports no additional complaints Reports no additional complaints Musc Reports no additional complaints Skin/Breast Denies rash and Denies unusual bruising Neuro Reports no additional complaints Psych Reports no additional complaints Endo Reports no additional complaints Kulwinder/Lymph Reports no additional complaints Aller/Immun Reports no additional complaints Physical Exam Const General: cooperative and no acute distress Orientation/consciousness: patient oriented x3 HEENT Head: Yes normal to inspection, Yes normocephalic and Yes atraumatic Eyes Conjunctivae: conjunctivae normal Neck Neck: Yes normal visual inspection and Yes trachea midline Chest Chest palpation & inspection: normal inspection of the chest Resp Effort & Inspection: normal respiratory effort Cardio Rate: regular rate Neuro General: patient oriented x3 Psych Appearance: grossly normal Office Procedures Post Void Residual Post Residual Void Post Void Residual (PVR): 9 [id number] Void Residual by ultrasound Results AMB Urinalysis, Automated UA Leukoctes 0 Helder/uL Last Edit by Montse Alberts on 09/03/22 15:14 UA Nitrite Negative Last Edit by Montse Alberts on 09/03/22 15:14 UA Urobilinogen 0.2 mg/dL Last Edit by Montse Alberts on 09/03/22 15:14 UA Protein 15 mg/dL Last Edit by Montse Alberts on 09/03/22 15:14 UA pH 6.0 Last Edit by Montse Alberts on 09/03/22 15:14 UA Blood 0 Antonio/uL Last Edit by Montse Alberts on 09/03/22 15:14 UA Specific [place] 1.010 Last Edit by Montse Alberts on 09/03/22 15:14 UA Ketone Negative Last Edit by Montse Alberts on 09/03/22 15:14 UA Bilirubin 0 mg/dL Last Edit by Montse Alberts on 09/03/22 15:14 UA Glucose 1000 mg/dL Last Edit by Montse Alberts on 09/03/22 15:14 Results Reviewed Results Reviewed: Laboratory Last Values Urine pH (Auto) 6.0 09/03/22 13:31 Specific [place] (Auto) 1.010 09/03/22 13:31 Urine Protein (Auto) 15 mg/dL 09/03/22 13:31 Glucose (UA)(Auto) 1000 mg/dL 09/03/22 13:31 Urine Ketones (Auto) Negative 09/03/22 13:31 Urine Blood (Auto) 0 Antonio/uL 09/03/22 13:31 Urine Nitrite (Auto) Negative 09/03/22 13:31 Urine Bilirubin (Auto) 0 mg/dL 09/03/22 13:31 Urine Urobilinogen (Auto) 0.2 mg/dL 09/03/22 13:31 Leukocyte Esterase (Auto) 0 Helder/uL 09/03/22 13:31 Collected: 07/21/22 Received: 07/22/22 Diagnosis Bladder, random posterior wall, biopsy: Acute and chronic cystitis; muscularis propria present; negative for malignancy. Clinical History Pre-Op Dx: Other chronic cystitis without hematuria Post-Op Dx: Chronic cystitis without hematuria Microscopic Description Microscopic sections reviewed. Material Received Posterior bladder wall, random bladder bx's Gross Description Received in formalin labeled ?posterior bladder wall random bladder bx's? are 2 glistening, semitranslucent, congested and hemorrhagic, patel-white and patel-brown wedge-shaped fragments of mucosa each measuring 0.35 cm in greatest dimension which are submitted in toto in a single cassette labeled A. Assessment & Plan Assessment & Plan (1) Chronic cystitis: Code(s): N30.20 - Other chronic cystitis without hematuria (2) Overactive bladder: Code(s): N32.81 - Overactive bladder (3) Recurrent UTI: Code(s): N39.0 - Urinary tract infection, site not specified (4) Lower abdominal pain: Code(s): R10.30 - Lower abdominal pain, unspecified (5) Bladder wall thickening: Code(s): N32.89 - Other specified disorders of bladder Plan Myrbetriq 50 mg at night and take Myrbetriq 25 mg in the morning. Vagifem was ordered to use 2 days a week. Discontinue Estrace cream. Discussed to try cranberry supplements. Follow-up after 4 months. Orders: Orders AMB Urinalysis Automated 09/03/22 Z13.9 - Encounter for screening, unspecified AMB Post Void Residual by ultrasound 09/03/22 N39.0 - Urinary tract infection, site not specified Medications: New estradiol (Vagifem) insert vaginally at bedtime 2 times a week, Mon/Thur 10 mcg vaginal 2XW 24 tabs 1RF mirabegron ER (Myrbetriq) 50 mg PO .qhs 90 tabs 2RF Patient Instructions: The patient had an opportunity to ask questions regarding treatment plan. All questions were answered. Imaging, Laboratory studies and physical exam results were discussed and reviewed in detail. No major barriers to understanding were identified. The patient expressed understanding and agreement with the above treatment plan. The patient is aware they should contact our office by phone for worsening of their current condition or the appearance of new symptoms. Compliance is encouraged with any medications and followup testing that is ordered. It is a privilege to be allowed the opportunity to participate in the urologic care of your patient. If you have any questions or concerns regarding treatment for the above conditions please do not hesitate to contact me. The office telephone contact is [phone]. This note is constructed in part using voice recognition software. While every effort has been made to ensure accuracy power system engineer errors may have been included. Yours sincerely, Omar Kathleen MD Coding Level of Care Code Est Pt Level 4 (72501) Diagnoses Chronic cystitis N30.20 Overactive bladder N32.81 Recurrent UTI N39.0 Lower abdominal pain R10.30 Bladder wall thickening N32.89 CPT Codes Post Residual Void - PVR CPT Code: 41989-Tqda Void Residual by ultrasound ([id number])
== END 2022-09-03 13:56 | disposition home or self-care (01) ==
PROVIDERS: Visit Provider Urology
DX: N30.20 Other chronic cystitis without hematuria (principal); N32.81 Overactive bladder; R10.30 Lower abdominal pain, unspecified; N32.89 Other specified disorders of bladder
CPT/HCPCS: 99214

== ENCOUNTER → 2022-09-03 13:13 | Outpatient (BNVA) | payer MEDICARE, SELFPAY | PROVIDERS: Visit Provider Urology | DX: N30.20 Other chronic cystitis without hematuria (principal); N32.81 Overactive bladder; N39.0 Urinary tract infection, site not specified; R10.30 Lower abdominal pain, unspecified; N32.89 Other specified disorders of bladder | CPT/HCPCS: 51798; 99212 ==

== ENCOUNTER 2023-01-04 14:06 | Outpatient (AMB) | payer MEDICARE, SELFPAY ==
--- NOTE | 2023-01-04 14:08 | A.OFFVIS_ITS ---
Intake Intake Visit Reasons: 4m follow up/Recurrent UTI's, Chronic IC, OAB Intake Note: Patient presents today for Recurrent UTI, Chronic IC & OAB: Meds- Estradiol, Myrbetriq 50 mg at night and take Myrbetriq 25 Antibiotic- doxycycline, cephalexin, ciprofloxacin, levofloxacin, sulfamethoxazole, trimethoprim Blood Thinner- None PVR: 0 ml's Senior Database Administrator Required: No Accompanied by: Self / Same As Patient Allergies droperidol [From INAPSINE] Allergy (Severe, Verified 01/04/23 14:09) HYPERACTIVE doxycycline [DOXYCYCLINE] Allergy (Intermediate, Verified 09/03/22 13:29) N/V/DIARRHEA latex [LATEX] Allergy (Intermediate, Verified 09/03/22 13:29) RASH amlodipine Allergy (Unknown, Verified 09/03/22 13:29) Unknown cephalexin [Keflex] Allergy (Unknown, Verified 09/03/22 13:29) Unknown ciprofloxacin [Cipro] Allergy (Unknown, Verified 09/03/22 13:29) Unknown levofloxacin [Levaquin] Allergy (Unknown, Verified 09/03/22 13:29) Unknown sulfamethoxazole [From BACTRIM] Adverse Reaction (Mild, Verified 09/03/22 13:29) GI UPSET trimethoprim [From BACTRIM] Adverse Reaction (Mild, Verified 09/03/22 13:29) GI UPSET HPI HPI Comments History of Present Illness Details Francisca is a 77-year-old female who presents today to the office for a follow-up. 01/04/2023? She is followed today for recurrent UTI, chronic IC, and OAB. Medical history notable for IBS with symptoms of recurrent diarrhea, constipation. Comorbidity Diabetes. She was last seen by me on 09/03/2022. The patient was prescribed Myrbetriq 50 mg at night and Myrbetriq 25 mg in the morning at that time. Vagifem was ordered to use 2 days a week, and she was advised to discontinue Estrace cream during that time. She states she was hospitalized in November at [facility] for UTI, MYRA, and enterocolitis. She states she was treated with IV abx and had imaging including CAT scans. She states that for 3 months she had been doing well and then prior to hospital admission in November she began having bladder pressure with dysuria and abdominal pain. She states she was discharged from the hospital yesterday. Dysuria has resolved. I have reviewed hospital paperwork she has brought in with her today. The paperwork does not include the CT scan imaging reports. Evaluation: Urinalysis-leukocytes 2+, blood negative; bladder scan PVR 0 mL Review of chart: s/p cystoscopy, hydro distention and bladder biopsy on 07/21/22. Bladder capacity was 400 mL, mild to moderate glomerulations noted. Imaging: CTAP results reviewed--05/13/22-- Kidneys: WNL. No renal calculi present. CTAP--05/22/22--Negative for kidney stones and normal kidney enhancement. Findings of mild bladder wall thickening. Urine cytology results reviewed?07/22/22-- Negative for malignancy. 01/04/2023: Plan: Obtain imaging reports from recent [facility] admission Continue Myrbetriq as prescribed. Continue vagifem, cranberry supplements. Ordered vitamin C 500 mg. Discussed adding fruits in her diet to increase in fiber to help regulate her bowel movements. Follow-up 3- 4 months [facility] Medical History Diabetes Pyelonephritis of right kidney Hematuria Hx: UTI (urinary tract infection) Chronic kidney disease Urethral caruncle Incomplete emptying of bladder Pyuria Surgical History History of total hysterectomy Social History Household Members: None Housing: Assisted Living Facility Do you presently have visiting nurse or other home services: Yes Alcohol intake: never Patient Tobacco Use Status: Never used Tobacco Advance Directives Date on File: 04/24/22 service: No Current occupational status: retired Review of Systems Const All systems reviewed & are unremarkable except as noted in HPI and below Reports no additional complaints Eyes Reports no additional complaints ENT Reports no additional complaints Card Denies dyspnea Resp Denies cough and Denies dyspnea GI Reports no additional complaints Reports no additional complaints Musc Reports no additional complaints Skin/Breast Denies rash and Denies unusual bruising Neuro Reports no additional complaints Psych Reports no additional complaints Endo Reports no additional complaints Kulwinder/Lymph Reports no additional complaints Aller/Immun Reports no additional complaints Office Procedures Post Void Residual Post Residual Void Post Void Residual (PVR): 0 09009-[id number] Void Residual by ultrasound Results AMB Urinalysis, Automated UA Leukoctes 125 Helder/uL Last Edit by BENTON John on 01/04/23 14:31 2+ Whitney Monroy 01/04/23 14:31 UA Nitrite Negative Last Edit by BENTON John on 01/04/23 14:31 UA Urobilinogen 0.2 mg/dL Last Edit by BENTON John on 01/04/23 14:3 1 UA Protein 30 mg/dL Last Edit by BENTON John on 01/04/23 14:31 1+ Whitney Monroy 01/04/23 14:31 UA pH 6.0 Last Edit by BENTON John on 01/04/23 14:31 UA Blood 0 Antonio/uL Last Edit by BENTON John on 01/04/23 14:31 UA Specific [place] 1.020 Last Edit by BENTON John on 01/04/23 14: 31 UA Ketone Negative Last Edit by BENTON John on 01/04/23 14:31 UA Bilirubin 0 mg/dL Last Edit by Whitney Monroy Megha on 01/04/23 14:31 UA Glucose 0 mg/dL Last Edit by Whitney Monroy Megha on 01/04/23 14:31 Results Reviewed Results Reviewed: Laboratory Last Values Urine pH (Auto) 6.0 01/04/23 14:28 Specific [place] (Auto) 1.020 01/04/23 14:28 Urine Protein (Auto) 30 mg/dL 01/04/23 14:28 Glucose (UA)(Auto) 0 mg/dL 01/04/23 14:28 Urine Ketones (Auto) Negative 01/04/23 14:28 Urine Blood (Auto) 0 Antonio/uL 01/04/23 14:28 Urine Nitrite (Auto) Negative 01/04/23 14:28 Urine Bilirubin (Auto) 0 mg/dL 01/04/23 14:28 Urine Urobilinogen (Auto) 0.2 mg/dL 01/04/23 14:28 Leukocyte Esterase (Auto) 125 Helder/uL 01/04/23 14:28 Assessment & Plan Assessment & Plan (1) Chronic cystitis: Code(s): N30.20 - Other chronic cystitis without hematuria (2) Overactive bladder: Code(s): N32.81 - Overactive bladder (3) Recurrent UTI: Code(s): N39.0 - Urinary tract infection, site not specified (4) Lower abdominal pain: Code(s): R10.30 - Lower abdominal pain, unspecified (5) Bladder wall thickening: Code(s): N32.89 - Other specified disorders of bladder Plan Obtain imaging reports from recent [facility] admission Continue Myrbetriq as prescribed. Continue vagifem, cranberry supplements. Ordered vitamin C 500 mg. Discussed adding fruits in her diet to increase in fiber to help regulate her bowel movements. Follow-up 3- 4 months Orders: Orders AMB Urinalysis Automated 01/04/23 Z13.9 - Encounter for screening, unspecified AMB Post Void Residual by ultrasound 01/04/23 N39.8 - Other specified disorders of urinary system Patient Instructions: The patient had an opportunity to ask questions regarding treatment plan. All questions were answered. Imaging, Laboratory studies and physical exam results were discussed and reviewed in detail. No major barriers to understanding were identified. The patient expressed understanding and agreement with the above treatment plan. The patient is aware they should contact our office by phone for worsening of th eir current condition or the appearance of new symptoms. Compliance is encouraged with any medications and followup testing that is ordered. It is a privilege to be allowed the opportunity to participate in the urologic care of your patient. If you have any questions or concerns regarding treatment for the above conditions please do not hesitate to contact me. The office telephone contact is [phone]. This note is constructed in part using voice recognition software. While every effort has been made to ensure accuracy sap integration architect errors may have been included. Yours sincerely, Omar Kathleen MD Coding Level of Care Code Est Pt Level 4 (27480) Diagnoses Chronic cystitis N30.20 Overactive bladder N32.81 Recurrent UTI N39.0 Lower abdominal pain R10.30 Bladder wall thickening N32.89 CPT Codes Post Residual Void - PVR CPT Code: 98879-Bmrd Void Residual by ultrasound ([id number]) Time Spent (min) 33
== END 2023-01-04 15:04 | disposition home or self-care (01) ==
PROVIDERS: PCP Family Medicine; Visit Provider Urology
DX: N30.20 Other chronic cystitis without hematuria (principal); N32.81 Overactive bladder; N39.0 Urinary tract infection, site not specified; R10.30 Lower abdominal pain, unspecified; N32.89 Other specified disorders of bladder
CPT/HCPCS: 99214

== ENCOUNTER → 2023-01-04 14:06 | Outpatient (BNVA) | payer MEDICARE, SELFPAY | PROVIDERS: Visit Provider Urology | DX: N30.20 Other chronic cystitis without hematuria (principal); N32.81 Overactive bladder; N32.89 Other specified disorders of bladder; R10.30 Lower abdominal pain, unspecified; N39.0 Urinary tract infection, site not specified; Z79.899 Other long term (current) drug therapy | CPT/HCPCS: 51798; 81003; 99212 ==